=== PATIENT | male | born 1960 | race African-American/Black ===

== ENCOUNTER 2023-10-18 16:03 | Emergency (ER) | payer OTHER, SELFPAY ==
[2023-10-18 16:06] LABS: Glucose - Point of Care 113 mg/dl (70-99)
[2023-10-18 16:11] VITALS: BP 147/74
[2023-10-18 16:36] VITALS: BMI 32.9
[2023-10-18 16:49] VITALS: BP 156/77
[2023-10-18 17:00] VITALS: BP 160/84
[2023-10-18] MEDS: ZOFRAN 4 MG IV ×2 (17:43→21:28)
[2023-10-18] MEDS: NSS 1000 IV (17:44)
[2023-10-18 17:46] LABS: % Basophils 0.1 % (0-2); % Eosinophils 0.6 % (0-6); % Immature Granulocytes 0.4 % (0-0.5); % Lymphocytes 21.8 % (20.5-51.1); % Monocytes 9.7 % (1.7-9.3); % Neutrophils 67.4 % (42.2-75.2); Absolute Lymphocytes 1.5 10^3/uL (1.2-3.4); Absolute Monocytes 0.7 10^3/uL (0.1-0.6); Absolute Neutrophils 4.7 10^3/uL (1.4-6.5); Hematocrit 38.5 % (39.0-52.0); Hemoglobin 13.3 g/dL (13.0-18.0); Mean Corp Hgb Conc. 34.5 g/dL (33.0-37.0); Mean Corpuscular Hgb 27.1 pg (27.0-31.0); Mean Corpuscular Volume 78.4 fL (80.0-94.0); Mean Platelet Volume 9.1 fL (7.4-10.4); Nucleated Red Blood Cells % 0 % (-); Platelet Count 235 10^3/uL (130-400); Red Blood Cell Count 4.91 10^6/uL (4.70-6.10); Red Cell Dist. Width 13.8 % (11.5-14.5); White Blood Cell Count 6.9 10^3/uL (4.8-10.8)
--- NOTE | 2023-10-18 17:50 | ED.GENMED ---
History of Present Illness
General
Chief Complaint: Abdominal Symptoms
Source: patient
Time Seen by Provider: 10/18/23 16:51
History of Present Illness
History of Present Illness:
63-year-old male presents to the emergency room complaining of nausea and vomiting. Patient's been having the symptoms for the past couple days. States he cannot keep anything down. He has mild lower abdominal pain. No fever. Denies chest pain
or shortness of breath.
Past History
Past History
ED Past Medical History: HTN, Hypercholesterolemia and Other (Gout, STERLING, A-fib)
Social History
Tobacco: Smoker
Alcohol: Former
Drug: Former user
Living: other
Phy Exam
Physical Exam
Physical Exam:
General: Awake, Alert, Oriented X3. No acute distress.
Vitals: unremarkable
Head: Atraumatic
Eyes: Pupils equal, EOMI
Throat: Airway intact, no exudates, dry mucosa
Neck: Trachea midline
Lungs: Clear and equal b/l
Heart: Regular rate, no murmurs
Abd: Soft, no significant reproducible abdominal pain to palpation, no pulsatile mass
Neuro: Nonfocal
Skin: Warm, dry, no rash
Extremities: pulses equal b/l, no edema
Course
Orders/Labs/Results
Orders:
Orders
10/18/23 16:10
Electrocardiogram (*1) Urgent
Reason for Study: Abdominal Pain
EKG- Treatment ONCE
10/18/23 17:35
Electrocardiogram (*1) Stat
Reason for Study: Abdominal Pain
EKG- Treatment ONCE
0.9% Sodium Chloride 1000 ml [Nss] 1,000 ml IV BOLUS
Ondansetron Injectable [Zofran] 4 mg IV NOW STA
10/18/23 17:37
Interrogate Pacemaker- Treatment ONCE
Complete Blood Count/With Diff Urgent
Comprehensive Metabolic Panel Urgent
Lipase Urgent
Troponin I Urgent
10/18/23 19:15
CT Abd/pelvis W Iv Cont Urgent
Comment:
Reason For Exam: lower abd pain
10/18/23 19:31
Urinalysis Reflex To Culture Urgent
Date Specimen was Collected: 10/18/23
Time Specimen was Collected: 19:30
10/18/23 21:25
Ondansetron Injectable [Zofran] 4 mg IV NOW STA
10/18/23 21:26
Ondansetron Injectable [Zofran] 4 mg .ROUTE .STK-MED ONE
10/18/23 22:52
Ondansetron Orally Disint [Zofran Odt (Orally Disintegrating)] 4 mg PO NOW STA
Abnormal Lab Results
10/18/23 10/18/23
16:05 17:37
Hct 38.5 L %
(39.0-52.0)
MCV 78.4 L fL
(80.0-94.0)
Absolute Monos (auto) 0.7 H 10^3/uL
(0.1-0.6)
Monocytes % 9.7 H %
(1.7-9.3)
Chloride 109 H mmol/L
(98-107)
Creatinine 1.4 H mg/dL
(0.7-1.3)
POC Glucose 113 H mg/dl
(70-99)
10/18/23 17:37
10/18/23 17:37
Vital Signs
Initial and Last Documented VS:
Initial Vital Signs
Temp Pulse Resp Pulse Ox
98.2 F 72 16 98
10/18/23 16:05 10/18/23 16:05 10/18/23 16:05 10/18/23 16:05
Last Documented Vital Signs
Temp Pulse Resp BP Pulse Ox
98.2 F 72 16 149/71 99
10/18/23 21:05 10/18/23 22:30 10/18/23 22:30 10/18/23 22:30 10/18/23 22:30
MDM/Problems Addressed
Differential Diagnosis Includes:
Gastritis, pancreatitis diverticulitis
MDM/Problems Addressed:
Patient is nausea and vomiting. His abdominal exam is benign. Labs show a normal white blood cell count, normal hemoglobin. Creatinine is mildly elevated 1.4 but the remainder of his chemistries are reassuring. Urinalysis is negative. EKG
showed no ischemic changes. Troponin was normal. Patient has a [employer] ICD. This was interrogated. There were no recent events. Patient felt somewhat better after Zofran and IV fluid. Patient still feels mildly nauseous. Given his
workup is not positive for any significant abnormalities including CT scan which showed no acute intra-abdominal abnormalities the patient to be discharged home. Recommend clear liquids. Prescription for Zofran sent.
*Pulse Oximetry
Patient hypoxic: no
*EKG
Interpreted by ED Provider?: Yes
Heart Rate: 74
Rate: normal
Rhythm: sinus
Interval: first degree heart block
QRS Pattern: normal QRS
Ischemia: non-specific ST changes
*Deep Fat Fry Cook Interpretation
Rate: normal
Interpretation: normal
Rhythm: sinus
*Critical Care Note
Total Time (30-74mins, 75-104mins- exclusive of procedures): Not Applicable
Patient Management
Social determinants of health affecting care: Strong social support
ED Attending Note
-
Portions of this chart may have been created with voice recognition software.� Occasional wrong word or��sound alike� substitutions may have occurred due to the inherent limitations of voice recognition software.
Discharge Plan
Departure
Patient Disposition: Home (Routine Discharge)
Date of Disposition: 10/18/23
Time of Disposition: 22:52
Patient with high blood pressure during this ER visit?: No
Condition: Good
Discharge Problem:
Nausea & vomiting
Instructions: Nausea and Vomiting, Adult (DC)
Prescriptions:
New
ondansetron 4 mg tablet,disintegrating
4 mg PO Q8H 4 Days Qty: 12 0RF
No Action
losartan 50 mg Tablet
50 mg PO DAILY
atorvastatin [Lipitor] 80 mg Tablet
80 mg PO DAILY
clonidine HCl 0.1 mg Tablet
0.1 mg PO BIDPRN PRN (Reason: anxiety)
carvedilol [Coreg] 6.25 mg Tablet
6.25 mg PO BID
naltrexone 50 mg Tablet
50 mg PO DAILY
cyanocobalamin (vitamin B-12) 1,000 mcg Tablet
1,000 mcg PO DAILY
quetiapine [Seroquel] 100 mg Tablet
150 mg PO HSPRN PRN (Reason: agitation)
amlodipine [Norvasc] 10 mg Tablet
10 mg PO DAILY
metformin 1,000 mg Tablet
1,000 mg PO BID
buspirone [BuSpar] 10 mg Tablet
10 mg PO BID
albuterol sulfate [ProAir HFA] 90 mcg/actuation Hfa Aerosol Inhaler
2 puff INHALATION R Q6HPRN PRN (Reason: sob)
amiodarone 100 mg Tablet
100 mg PO DAILY
Xarelto 20 mg Tablet
20 mg PO HS
prazosin 5 mg Capsule
10 mg PO HS
Referrals:
UNKNOWN - PT DOES,NOT KNOW [Family Provider] -
Interventions
Interventions:
*Risk Screen - Suicide Last Done: 10/18/23 16:36
*General Assessment Last Done: 10/18/23 16:36
*Neglect/Abuse Screening Last Done: 10/18/23 16:36
ED- Fall Risk Assessment Last Done: 10/18/23 16:36
*ED COVID-19 Vaccine History Last Done: 10/18/23 16:05
*Nursing Disposition Last Done: 10/18/23 23:11
MV-Ctwycw-Dmmviyncin Assessment Last Done: 10/18/23 16:36
Discharge Date and Time
Discharge Date/Time: 10/18/23 23:11
Print Language: SERBIAN
[2023-10-18 18:00] VITALS: BP 160/84
--- NOTE | 2023-10-18 18:01 | PHANOTE ---
Addendum entered by Keri Alas 10/18/23 18:58:
[phone].
Original Note:
med rec note- patient does not know his medication, [facility] will [facility] to call them at [phone]. unfortunately they left for the day, but spoke to cable television installer maintenance mechanic telephone and she took my information and will call back Thursday10/19/23
at [phone].
[2023-10-18 18:11] LABS: Troponin I < 0.012 ng/ml
[2023-10-18 18:17] LABS: ALT (SGPT) 15 U/L (0-50); AST (SGOT) 33 U/L (17-59); Albumin 4.2 g/dl (3.5-5.0); Alkaline Phosphatase 96 U/L (38-126); Blood Urea Nitrogen 19 mg/dl (9-20); Calcium 9.3 mg/dl (8.4-10.2); Carbon Dioxide 22 mmol/L (22-30); Chloride 109 mmol/L (98-107); Estimated Creatinine Clearance 71 ml/min; Glucose 98 mg/dl (70-99); Lipase 76 U/L (23-300); Sodium 143 mmol/L (135-145); Total Bilirubin 0.5 mg/dl (0.2-1.3); Total Protein 7.5 g/dl (6.3-8.2); eGFR 56.48
[2023-10-18 19:37] LABS: Urine Albumin Trace (Neg - Trace); Urine Bilirubin Negative (Negative); Urine Character Clear (Clear); Urine Color Yellow; Urine Glucose Negative (Negative); Urine Ketone Negative (Negative); Urine Leukocyte Negative (Negative); Urine Nitrite Negative (Negative); Urine Occult Blood Negative (Negative); Urine Urobilinogen Negative (Neg - 1+)
[2023-10-18 21:05] VITALS: BP 146/77
[2023-10-18 22:30] VITALS: BP 149/71
== END 2023-10-18 23:11 | disposition home or self-care (01) ==
LOC: EMR 16:03
PROVIDERS: EMERGENCY PHYSICIAN Emergency Medicine
DX: R11.2 Nausea with vomiting, unspecified (principal); R10.30 Lower abdominal pain, unspecified; I10 Essential (primary) hypertension; E78.00 Pure hypercholesterolemia, unspecified; I48.91 Unspecified atrial fibrillation; F17.200 Nicotine dependence, unspecified, uncomplicated; Z95.810 Presence of automatic (implantable) cardiac defibrillator
CPT/HCPCS: 99284; 96374; 96376; 96361; 74177; 80053; 81003; 82962; 83690; 84484; 85025; 93005; Q9967

== ENCOUNTER 2024-03-19 05:16 | Emergency (ER) | payer OTHER, SELFPAY ==
[2024-03-19 05:16] VITALS: BMI 32.4
[2024-03-19 05:17] VITALS: BP 178/95
--- NOTE | 2024-03-19 05:31 | ED.GENMED ---
History of Present Illness
General
Chief Complaint: Nose Bleed
Source: patient
Exam Limitations: none
Time Seen by Provider: 03/19/24 05:22
History of Present Illness
History of Present Illness:
See MDM
Past History
Past History
ED Past Medical History: HTN, Hypercholesterolemia and Other (Gout, STERLING, A-fib)
Social History
Tobacco: Smoker
Alcohol: Former
Drug: Former user
Living: other
Phy Exam
Physical Exam
Physical Exam:
See MDM
Course
Orders/Labs/Results
Orders:
Orders
03/19/24 05:30
Lorazepam [Ativan] 0.5 mg PO NOW STA
Ondansetron Orally Disint [Zofran Odt (Orally Disintegrating)] 4 mg PO NOW STA
Vital Signs
Initial and Last Documented VS:
Initial Vital Signs
Temp Pulse Resp BP Pulse Ox
97.8 F 78 22 178/95 95
03/19/24 05:17 03/19/24 05:17 03/19/24 05:17 03/19/24 05:17 03/19/24 05:17
Last Documented Vital Signs
Temp Pulse Resp BP Pulse Ox
97.8 F 78 22 174/94 94
03/19/24 05:17 03/19/24 05:17 03/19/24 05:17 03/19/24 05:35 03/19/24 05:36
MDM/Problems Addressed
Differential Diagnosis Includes:
HPI and MDM Narrative:
63-year-old male presenting with right-sided nosebleeding. Patient states it has been on and off for the past few days. Patient is on Xarelto for A-fib. Patient states he could not stop the bleeding for the past hour or so he drove himself to the
hospital. On arrival, patient is extremely anxious and keeps dabbing his nose. When I assessed the nose, I did wipe away small clots in his right nasal passage. No active bleeding noted. Patient requesting medicine for anxiety. Patient also
stating he feels nauseous from swallowing blood.
Physical exam
General: Well appearing and non-toxic
HEENT: protecting airway. Small clots noted in right nasal passage. No active bleeding
Neck: appears supple
CV: No evidence of cyanosis
Resp: No accessory muscle use
Abd: Non-distended
Extremities: No deformities
Neuro: alert
Psych: Anxious
Skin: Intact
Problems Addressed including Acute and Chronic Conditions affecting care:
1. Right-sided nosebleeding
Acuity: acute
Prognosis: stable
Details: It appears to be anterior epistaxis. On my evaluation, it has self resolved. Will continue to monitor
Updates
5:45 AM on multiple reassessments, there is no active bleeding. Patient at this point asking for refill of his Seroquel. [facility] but I will write for a week supply until that happens
Differential Diagnosis (but not limited to):. Nosebleed, excoriation
Testing considered: Hemoglobin testing
Drug therapy (if applicable): OTC meds, please see d/c instruction regarding Rx drugs
Amount and/or Complexity of Data Reviewed
Clinical info obtained from: Patient
External data reviewed: N/A
Labs I independently reviewed (but not limited to): N/A
Radiology: N/A
Pulse Ox: not hypoxic
EKG independently reviewed: N/A
Certified Travel Counselor: N/A
Critical Care: N/A
Risk of Complication:
Social Determinants of health: Good social support
Discussed with other providers: N/A
Escalation of Care includes Admit/Obs: After being observed in the Emergency Department, pt stable for discharge.
Occasional wrong word or 'sound a like' substitutions may have occurred due to the inherent limitations of voice recognition software. Read the chart carefully and recognize, using context, where substitutions have occurred.
*Critical Care Note
Total Time (30-74mins, 75-104mins- exclusive of procedures): Not Applicable
ED Attending Note
-
Portions of this chart may have been created with voice recognition software.� Occasional wrong word or��sound alike� substitutions may have occurred due to the inherent limitations of voice recognition software.
Discharge Plan
Departure
Patient Disposition: Home (Routine Discharge)
Date of Disposition: 03/19/24
Time of Disposition: 05:48
Patient with high blood pressure during this ER visit?: Yes
Discharge Problem:
Acute anterior epistaxis
Instructions: Nosebleeds (DC), BLOOD PRESSURE
Prescriptions:
New
ondansetron 4 mg Tablet,Disintegrating
4 mg PO BIDPRN PRN (Reason: nausea/vomiting) Qty: 10 0RF
quetiapine [Seroquel] 100 mg tablet
150 mg PO HS 7 Days Qty: 11 0RF
No Action
losartan 50 mg Tablet
50 mg PO DAILY
atorvastatin [Lipitor] 80 mg Tablet
80 mg PO DAILY
clonidine HCl 0.1 mg Tablet
0.1 mg PO BIDPRN PRN (Reason: anxiety)
carvedilol [Coreg] 6.25 mg Tablet
6.25 mg PO BID
naltrexone 50 mg Tablet
50 mg PO DAILY
cyanocobalamin (vitamin B-12) 1,000 mcg Tablet
1,000 mcg PO DAILY
quetiapine [Seroquel] 100 mg Tablet
150 mg PO HSPRN PRN (Reason: agitation)
amlodipine [Norvasc] 10 mg Tablet
10 mg PO DAILY
metformin 1,000 mg Tablet
1,000 mg PO BID
buspirone [BuSpar] 10 mg Tablet
10 mg PO BID
albuterol sulfate [ProAir HFA] 90 mcg/actuation Hfa Aerosol Inhaler
2 puff INHALATION R Q6HPRN PRN (Reason: sob)
amiodarone 100 mg Tablet
100 mg PO DAILY
Xarelto 20 mg Tablet
20 mg PO HS
prazosin 5 mg Capsule
10 mg PO HS
ondansetron 4 mg tablet,disintegrating
4 mg PO Q8H 4 Days Qty: 12 0RF
Activity Restrictions/Additional Instructions:
Please return for any worsening symptoms.
You may return at any time if you have further concerns.
Please follow up with your doctor at the first available appointment, preferably this week.
Thank you for choosing [facility].
Interventions
Interventions:
*Risk Screen - Suicide Last Done: 03/19/24 05:17
*General Assessment Last Done: 03/19/24 05:36
*Neglect/Abuse Screening Last Done: 03/19/24 05:36
*ED COVID-19 Vaccine History Last Done: 03/19/24 05:36
ED-EENT Assessment Last Done: 03/19/24 05:38
Discharge Date and Time
Print Language: MALTESE
[2024-03-19] MEDS: ATIVAN 0.5 MG PO (05:34)
[2024-03-19] MEDS: ZOFRAN ODT (ORALLY DISINTEGRATING) 4 MG PO (05:34)
[2024-03-19 05:35] VITALS: BP 174/94
[2024-03-19 06:00] VITALS: BP 157/96
== END 2024-03-19 06:08 | disposition home or self-care (01) ==
LOC: EMR 05:16
PROVIDERS: EMERGENCY PHYSICIAN Student in an Organized Health Care Education/Training Program
DX: R04.0 Epistaxis (principal); I10 Essential (primary) hypertension; F41.9 Anxiety disorder, unspecified; F17.200 Nicotine dependence, unspecified, uncomplicated; I48.91 Unspecified atrial fibrillation; Z79.01 Long term (current) use of anticoagulants
CPT/HCPCS: 99283

== ENCOUNTER 2024-05-10 06:17 | Inpatient (IN) | payer OTHER, SELFPAY ==
[2024-05-09 23:49] VITALS: BP 158/86
[2024-05-10] VITALS (14 sets, daily range): BP systolic 118–144; BP diastolic 69–94; BMI 32.3; BMI 31.2
[2024-05-10] MEDS: ZOFRAN 4 MG IV (00:18)
[2024-05-10] MEDS: PROTONIX IV 40 MG IV (00:18)
[2024-05-10 00:42] LABS: ALT (SGPT) 14 U/L (0-50); AST (SGOT) 19 U/L (17-59); Albumin 4.1 g/dl (3.5-5.0); Alkaline Phosphatase 96 U/L (38-126); Blood Urea Nitrogen 18 mg/dl (9-20); Calcium 9.2 mg/dl (8.4-10.2); Carbon Dioxide 19 mmol/L (22-30); Chloride 109 mmol/L (98-107); Estimated Creatinine Clearance 62 ml/min; Glucose 137 mg/dl (70-99); Potassium 3.9 mmol/L (3.5-5.1); Sodium 141 mmol/L (135-145); Total Bilirubin 0.5 mg/dl (0.2-1.3); eGFR 48.11
[2024-05-10 00:45] LABS: % Basophils 0.6 % (0-2); % Eosinophils 0.9 % (0-6); % Immature Granulocytes 1.3 % (0-0.5); % Lymphocytes 19.3 % (20.5-51.1); % Monocytes 8.3 % (1.7-9.3); % Neutrophils 69.6 % (42.2-75.2); Absolute Eosinophils 0.1 10^3/uL (0-0.7); Absolute Immature Granulocytes 0.1 10^3/uL (0-0.05); Absolute Lymphocytes 1.3 10^3/uL (1.2-3.4); Absolute Monocytes 0.6 10^3/uL (0.1-0.6); Absolute Neutrophils 4.8 10^3/uL (1.4-6.5); Hemoglobin 11.5 g/dL (13.0-18.0); Mean Corp Hgb Conc. 32.9 g/dL (33.0-37.0); Mean Corpuscular Hgb 26.3 pg (27.0-31.0); Mean Corpuscular Volume 79.9 fL (80.0-94.0); Mean Platelet Volume 9.7 fL (7.4-10.4); Nucleated Red Blood Cells % 0 % (-); Platelet Count 311 10^3/uL (130-400); Red Blood Cell Count 4.38 10^6/uL (4.70-6.10); Red Cell Dist. Width 16.1 % (11.5-14.5); White Blood Cell Count 6.9 10^3/uL (4.8-10.8)
[2024-05-10 00:47] LABS: Lipase 30 U/L (23-300)
[2024-05-10 00:55] LABS: NT-proBNP 2940 pg/ml; Troponin I 0.023 ng/ml
--- NOTE | 2024-05-10 02:26 | ED.GENMED ---
History of Present Illness
General
Chief Complaint: Cardiac Symptoms
Source: patient
Exam Limitations: none
Time Seen by Provider: 05/10/24 00:13
Nursing documentation reviewed up to this point in time: agreed with
History of Present Illness
History of Present Illness:
This is a 63-year-old gentleman who has history of A-fib, CHF, AICD, GERD, anxiety. He states he was hospitalized last month for exacerbation of CHF while visiting in [place]. He states he required IV diuretics. He flew home perhaps 2
weeks ago and was feeling well until this evening when he developed similar symptoms as previous CHF exacerbation with shortness of breath, chest pain, burping, nausea and vomiting. He denies cough, denies fever nor chills, no leg pain or swelling.
He follows with camp head counselor at the [place].
He has not been weighing himself daily.
He is unsure as to his dose of Lasix but believes he takes 40 mg daily.
Past History
Past History
ED Past Medical History: Arrthythmia (Atrial fibrillation), CHF, HTN, Hypercholesterolemia, Renal failure (Chronic renal insufficiency.), Psychiatric (Anxiety) and Other (Gout, STERLING, A-fib)
ED Past Surgical History: Cardiac (AICD)
Social History
Tobacco: Smoker
Alcohol: Former
Drug: Former user
Personal: Single
Living: alone
Employment: Not employed
Family History
Family History: Other (Noncontributory)
Phy Exam
Physical Exam
Physical Exam:
GENERAL: 63-year-old gentleman appears somewhat older than stated age, awake and alert, in mild to moderate distress, moderately anxious, intermittently burping, tachypneic but able to speak in full sentences. Pulse ox 98% on room air.
EYE: pupils equal and reactive. anicteric
NECK: Supple, nontender, no meningismus, no significant adenopathy. Mild JVD.
ENT: oral mucosa is moist. No rhinorrhea.
CARDIAC: Regular rate and rhythm. 2/6 holosystolic murmur.
LUNGS: Mild to moderate respiratory distress, scant rales at bases otherwise clear to auscultation.
ABDOMEN: Rotund, soft, nondistended, without focal tenderness, normoactive BS.
NEUROLOGICAL: Alert and oriented x3, no focal neuro deficits.
SKIN: Warm and dry, normal color, skin intact. No rash.
MUSCULOSKELETAL: No C/C/E. peripheral pulses are full and equal b/l. No palpable tenderness.
PSYCH: Moderately anxious.
Scores
Heart Failure Risk
Heart Failure Risk Score: Yes
History of Stroke or TIA: No
History of intubation for respiratory distress: No
Heart rate on ED arrival >/= 110: No
SaO2 <90% on arrival on room air: No
HR >/=110 during 3min walk test (or too ill to perform test): Yes
ECG has acute ischemic changes: No
Urea >/=12mmol/L (BUN 33.6mg/dL): No
Serum CO2>/=35mmol/L: No
Troponin I or T elevated to NM Level (0.4mg/dL): No
NT-proBNP >/=5,000ng/L (5,000pg/ml): No
HF Risk Score: 2
Admission Status: MEDIUM RISK 9.2% Consider observation or discharge to home with homecare & f/u visit to PCP/Videotape Operator, or SNF for treatment
Course
Orders/Labs/Results
Orders:
Orders
05/09/24 23:41
Electrocardiogram (*1) Urgent
Reason for Study: Shortness of Breath
EKG- Treatment ONCE
Complete Blood Count/With Diff Urgent
Comprehensive Metabolic Panel Urgent
Pro-BNP [NT-proBNP] Urgent
Troponin I Urgent
05/10/24 00:00
CR Chest - 2 Views Urgent
Reason For Exam: SOB
05/10/24 00:13
Lipase Urgent
Comment: .
05/10/24 00:14
Ondansetron Injectable [Zofran] 4 mg IV NOW STA
Pantoprazole [Protonix IV] 40 mg IV NOW STA
05/10/24 02:06
Furosemide [Lasix] 40 mg IV NOW STA
Nitroglycerin Ointment [Nitro-Bid] 1 inch TOPICAL NOW STA
05/10/24 04:35
Furosemide [Lasix] 40 mg .ROUTE .STK-MED ONE
05/10/24 04:36
Nitroglycerin Ointment [Nitro-Bid] 1 inch .ROUTE .STK-MED ONE
05/10/24 04:58
Troponin I Urgent
05/10/24 05:18
Admit/Transfer Patient As Directed
Co-Sign Provider:
Level of Care: Inpatient admission
Assign to:: Telemetry
Physician / Group: Servando
Diagnosis: CHF
Reason for Telemetry: Acute Heart Failure
Date to Stop Telemetry: 05/13/24
Time to Stop Telemetry: 11:00
Reason for Hospitalization: CHF
Expected length of stay greater than two midnights?: Yes
ELOS- Estimated Length of Stay in days: 3
I certify the patient meets the requirements for IP care: Yes
05/10/24 05:19
COVID-19 Antigen Urgent
Source: Nasal Swab
Influenza A+B Rapid Molecular Urgent
JANAE Source: Nasal Swab
Specimen Description:
PRN Pain Medication Management As Directed
May give lesser potent ordered pain med per pt: Yes
preference::
Protocol:: Medication orders for pain may be administered in a
manner that supports deferring to patient preference
when the pt is:
- Requesting an ordered lesser potent pain medication.
Least to most potent pain medications are defined
as: acetaminophen < NSAID < tramadol < opioids
(morphine, oxycodone, hydromorphone).
- Requesting a lesser dose of the same medication IF
ORDERED.
- Requesting a less intrusive route of administration
if both routes are prescribed by the provider (PO <
IV).
05/10/24 05:20
Code Status As Directed
Resuscitation Status: Full Code
05/10/24 Breakfast
Regular
Fluid Restriction: 1440 mL/day (48 oz)
05/13/24 11:00
DC Protocol for Telemetry ONCE
Abnormal Lab Results
05/10/24
00:13
RBC 4.38 L 10^6/uL
(4.70-6.10)
Hgb 11.5 L g/dL
(13.0-18.0)
Hct 35.0 L %
(39.0-52.0)
MCV 79.9 L fL
(80.0-94.0)
MCH 26.3 L pg
(27.0-31.0)
MCHC 32.9 L g/dL
(33.0-37.0)
RDW 16.1 H %
(11.5-14.5)
Abs Immat Gran (auto) 0.1 H 10^3/uL
(0-0.05)
Immature Gran % 1.3 H %
(0-0.5)
Lymphocytes % 19.3 L %
(20.5-51.1)
Chloride 109 H mmol/L
(98-107)
Carbon Dioxide 19 L mmol/L
(22-30)
Creatinine 1.6 H mg/dL
(0.7-1.3)
Glucose 137 H mg/dl
(70-99)
05/10/24 00:13
05/10/24 00:13
Vital Signs
Initial and Last Documented VS:
Initial Vital Signs
Temp Pulse Resp BP Pulse Ox
98 F 80 32 158/86 98
05/09/24 23:49 05/09/24 23:49 05/09/24 23:49 05/09/24 23:49 05/09/24 23:49
Last Documented Vital Signs
Temp Pulse Resp BP Pulse Ox
98 F 72 20 132/93 97
05/09/24 23:49 05/10/24 06:21 05/10/24 06:21 05/10/24 06:21 05/10/24 06:21
MDM/Problems Addressed
Differential Diagnosis Includes:
Concern for exacerbation of CHF, ACS, GERD, gastroenteritis, pneumonia.
Moderate underlying anxiety component and with reassurance, calming factors, patient's dyspnea markedly improves.
EKG shows A-fib with ventricular paced rhythm. A-fib and ventricular pacing is new compared to previous EKG showing sinus rhythm with first-degree AV block September 2023.
Will check labs, troponin, BNP, chest x-ray. With history of cardiomyopathy, A-fib, AICD patient is certainly at risk for recurrent CHF.
With recent travel, other consideration is PE however patient is not tachycardic, no leg pain or swelling and denies lengthy car rides, he traveled by air. Brief air travel.
Also reassuring that he is chronically maintained on Xarelto. Reports compliance with medications.
Chronic conditions affecting care: HTN, CAD, Cardiomyopathy, Psychiatric illness and Kidney disease
Acute Exacerbation and/or Progression of Chronic Illness: Cardiomyopathy
*Radiology
Radiology exam reviewed: preliminary read by ED provider (Chest x-ray shows cardiomegaly, mild interstitial fullness concerning for CHF.)
*Pulse Oximetry
Patient hypoxic: no
*EKG
Interpreted by ED Provider?: Yes
Interpretation: abnormal
Comparison EKG: changes noted (A-fib with ventricular pacing is new compared to previous EKG September 2023 showing normal sinus rhythm with first-degree AV block)
Rate: normal
Rhythm: a-fib and ventricular paced
Ischemia: non-specific ST changes
*Sterile Processing Tech Interpretation
Rate: normal
Interpretation: normal
Rhythm: a-fib and ventricular paced
*Critical Care Note
Total Time (30-74mins, 75-104mins- exclusive of procedures): Not Applicable
Update Note
Update Note:
02:34
Chest x-ray concerning for at least mild CHF.
BNP is elevated near 3000.
Troponin thus far is normal. Will plan to repeat.
Mild anemia with hemoglobin of 11.5, normal white blood cell count.
Patient continues with intermittent burping but has had no vomiting.
Continues with some dyspnea and with chest x-ray findings, elevated BNP, concern for acute on chronic CHF. Will give an IV dose of Lasix and plan to admit to hospitalist service.
ED Attending Note
-
Portions of this chart may have been created with voice recognition software.� Occasional wrong word or��sound alike� substitutions may have occurred due to the inherent limitations of voice recognition software.
Discharge Plan
Departure
Patient Disposition: Admit
Date of Disposition: 05/10/24
Time of Disposition: 02:37
Admit to: Telemetry
Admit to doctor: Servando
Presentation/result/management discussed w/ accepting MD/DO: Hospitalist
Discharge Problem:
Acute on chronic combined systolic (congestive) and diastolic (congestive) heart failure
Interventions
Interventions:
*Risk Screen - Suicide Last Done: 05/10/24 00:57
*General Assessment Last Done: 05/10/24 00:27
*Neglect/Abuse Screening Last Done: 05/09/24 23:42
ED- Fall Risk Assessment Last Done: 05/10/24 00:27
*ED COVID-19 Vaccine History Last Done: 05/10/24 00:27
ED- Pulmonary Assessment Last Done: 05/10/24 00:27
ED- Cardiac Assessment Last Done: 05/10/24 00:27
[2024-05-10] MEDS: LASIX 40 MG IV ×2 (04:38→16:50)
[2024-05-10] MEDS: NITRO-BID 1 INCH TOPICAL (04:39)
--- NOTE | 2024-05-10 05:23 | HPS.HSE ---
Family Physician
-
Family Physician: * NONE
Chief Complaint
-
SOB
History of Present Illness
Patient is a 63y M with PMH significant for CHF, PTSD / Depression, A-Fib and BPH who presents to ED complaining of SOB. Patient reports progressive SOB over the past 4-5 days. He reports cough and feeling 'hot and cold' off-and-on. He
complains of chest pain / pressure and frequent belching. Patient states that he had identical symptoms about 2 weeks ago while visiting family in [place]. He was hospitalized at [facility] in [place], [place] from 04/23 - 05/02 and treated
for CHF. He states that his symptoms improved. He was discharged on Lasix 20mg daily and Jardiance - both of which were new for him. He notes that he has not been monitoring his weight.
He has prior history of cardiomyopathy with PPM / AICD in place. He states that he was not on chronic diuretic therapy prior to his recent hospitalization.
He is followed locally by Cardiology at the [facility].
Medical History
Past Medical History
Past Medical History: Reports Other
Additional Past Medical History:
Cardiomyopathy - Unknown Type
Chronic HF - Unknown Type
Atrial Fibrillation - Unknown Type
Hypertension
CKD III
Anxiety / Depression / PTSD
BPH
Past Surgical History: Reports Other
Additional Past Surgical History:
PPM / AICD Placement
Bilateral TKA
Social History
Tobacco: Smoker (Current every day smoker. Approx 40 pack years total use.)
Alcohol: None
Drug: None
Family History
Family History: Not pertinent
Allergies / Home Medications
Allergies reflects when Allergies were last updated in [employer].
Home Medications with original date entered in [employer]
Allergy/Medication List:
Allergies
Allergy/AdvReac Type Severity Reaction Status Date / Time
No Known Drug Allergies Allergy Unknown Unknown Verified 05/09/24 23:43
Home Medications
albuterol sulfate 90 mcg/actuation aerosol inhaler (ProAir HFA) 2 puff inhalation R Q6HPRN PRN sob 10/18/23
amiodarone 100 mg tablet 200 mg PO DAILY 10/18/23
atorvastatin 80 mg tablet (Lipitor) 80 mg PO DAILY 10/18/23
buspirone 10 mg tablet 10 mg PO BID 10/18/23
carvedilol 6.25 mg tablet (Coreg) 6.25 mg PO BID 10/18/23
clonidine HCl 0.1 mg tablet 0.1 mg PO BIDPRN PRN anxiety 10/18/23
cyanocobalamin (vitamin B-12) 1,000 mcg tablet 1,000 mcg PO DAILY 10/18/23
naltrexone 50 mg tablet 50 mg PO DAILY 10/18/23
prazosin 5 mg capsule 10 mg PO HS 10/18/23
quetiapine 100 mg tablet (Seroquel) 100 mg PO HSPRN PRN agitation 10/18/23
rivaroxaban 20 mg tablet (Xarelto) 20 mg PO HS 10/18/23
ondansetron 4 mg disintegrating tablet 4 mg PO BIDPRN PRN nausea/vomiting #10 tabs 03/19/24
empagliflozin 10 mg PO DAILY 05/10/24
furosemide 20 mg PO DAILY 05/10/24
quetiapine 100 mg tablet (Seroquel) 100 mg PO HS 05/10/24
tamsulosin 0.4 mg capsule 0.4 mg PO DAILY 05/10/24
Review of Systems
-
History Source: Patient
A 12 point ROS was completed and negative except as noted: Yes
Constitutional: Reports Fatigue and Chills; Denies Fever
EENT: Denies Sore Throat
Respiratory: Reports Cough and Trouble Breathing; Denies Hemoptysis
Cardiac: Reports Chest Pain and Palpitations; Denies Diaphoresis or Syncope
Abdomen/GI: Reports Nausea and Anorexia; Denies Abdominal Pain, Vomiting or Diarrhea
: Denies Dysuria, Frequency or Flank Pain
Musculoskeletal: Denies Joint Pain or Edema
Neurological: Denies Dizzy or Headache
Psych: Reports Depression and Anxiety
Physical Exam
Vital Signs
Vital Signs
Temp Pulse Resp BP Pulse Ox
98 F 75 22 133/92 95
05/09/24 23:49 05/10/24 04:45 05/10/24 04:45 05/10/24 04:39 05/10/24 04:45
Physical Exam
General: Other (63y M in no acute distress.)
HEENT: Moist mucous membranes, PERRLA and Other (Pos JVD about 1/2 up neck.)
Respiratory: Other (Few bibasilar rales. No wheezing / rhonchi.)
Cardiac: S1/S2, Irregular Rhythm and Murmur (II/ BOSTON)
GI: Soft, Non Tender, Non Distended and Normal Bowel Sounds
Musculoskeletal: No Clubbing, No Cyanosis and No Edema
Neuro: AO x 3
Laboratory Results
-
05/10/24 00:13
05/10/24 00:13
Laboratory Results
Total Bilirubin 0.5 mg/dl (0.2-1.3) 05/10/24 00:13
AST 19 U/L (17-59) 05/10/24 00:13
ALT 14 U/L (0-50) 05/10/24 00:13
Alkaline Phosphatase 96 U/L (38-126) 05/10/24 00:13
Troponin I 0.023 ng/ml 05/10/24 00:13
Lipase 30 U/L (23-300) 05/10/24 00:13
Impression/Plan
-
A/P: Patient is a 63y M with PMH significant for CHF, A-Fib and hypertension who presents to ED complaining of progressive dyspnea x several days.
Acute on Chronic HF- Unknown Type
- Admit for further evaluation and treatment.
- Similar symptoms 2 weeks ago in [place] and improved with diuresis.
- Resume IV Lasix daily for now and follow for effect.
- Update Echo.
- Send to [facility] for records.
- Cardiology evaluation for additional recommendations.
- Continue Jardiance, carvedilol, etc.
- Check COVID / Flu for completeness given cough and chills - especially with recent hospital stay.
Atrial Fibrillation - Unknown Type
- Stable. PPM / AICD in place.
- EKG with baseline A-Fib and frequent periods of V pacing.
- Continue current medications including amiodarone and Xarelto.
- Cardiology eval as noted above.
CKD III
- Stable. Renal function is at / near known baseline.
- Follow for changes with diuresis.
Benign Hypertension
- Stable. Continue outpatient med regimen.
- Holding parameters if necessary to allow for effective diuresis.
BPH
- Stable. Continue tamsulosin.
- Bladder scan protocol.
PTSD / Anxiety / Depression
- Stable. Continue current psychotropic med regimen without changes.
- Monitor for any changes in mood, etc.
DVT Prophylaxis: On Xarelto
Code Status: Full
[2024-05-10 05:50] LABS: Troponin I 0.027 ng/ml
--- NOTE | 2024-05-10 07:43 | PHANOTE ---
Addendum entered by Keri Alas 05/10/24 08:04:
called [facility], the med listed below were filled in 04/09/24 expect for the naltrexone 50mg daily patient stopped filling
Original Note:
med rec note- patient medication on have not been filled since 09/2023 BuSpar 10mg bid, Lipitor 80mg daily, Xarelto 20mg qpm, losartan 50mg daily, clonidine 0.1gm bid, metformin 1000mg bid, Coreg 12.5mg bid and Norvasc 10mg daily and 05/25/2023
for naltrexone 50mg daily
[2024-05-10 08:06] LABS: COVID-19 Antigen Negative (Negative)
--- NOTE | 2024-05-10 08:28 | W.PN.UPDATE ---
Update Note
Progress Note Update
Patient seen and examined today while in the ED. Continue current plan as outlined earlier this morning.
[2024-05-10] MEDS: FARXIGA 10 MG PO (08:42)
[2024-05-10] MEDS: REVIA 50 MG PO (08:42)
[2024-05-10] MEDS: PACERONE 200 MG PO (08:42)
[2024-05-10] MEDS: BUSPAR 10 MG PO ×2 (08:42→20:26)
[2024-05-10] MEDS: COREG 6.25 MG PO ×2 (08:42→20:26)
[2024-05-10] MEDS: LIPITOR 80 MG PO (08:42)
[2024-05-10 13:52] LABS: Troponin I 0.025 ng/ml
[2024-05-10 13:54] LABS: Glycohemoglobin (HgbA1c) 6.5 % (4.0-5.6)
[2024-05-10 14:12] LABS: TSH Reflex To Free T4 1.65 uIU/ml (0.47-4.68)
--- NOTE | 2024-05-10 14:41 | CON.CAR ---
Addendum entered and electronically signed by Dru Owens MD 05/10/24 17:32:
I saw and examined the patient.
The COMPUTERIZED MACHINE FABRIC CUTTER's note was reviewed and I agree with the note.
Comment:
Ketan Juárez is a 63-year-old male (follows at the [facility]), with heart failure (type unknown), atrial fibrillation (type unknown, on rivaroxaban), CKD, NIDDM, hypertension, dyslipidemia, current smoker, and depression who presented to the emergency
department with a chief complaint of shortness of breath. He was recently hospitalized in [place] on 04/27 and was there for 'a few days'. They diuresed him and he felt improved. He was discharged at a weight of 230 pounds and on Lasix 20 mg
daily and Jardiance. He felt improved but then started to feel worse again over the past couple of days and presented to ER. Today his weight is 236 pounds. Labs are notable for negative troponin, BNP 2940, creatinine 1.6 (at baseline). ECG
reveals atrial fibrillation with ventricular pacemaker. CXR appears fairly clear. Echo shows LVEF 30-35% with global hypokinesis, stage III DD, moderate MR, moderate to severe TR with PASP 58 mmHg. Suspect he has acute on chronic heart failure
with reduced ejection fraction. We will diurese him with 40 mg IV Lasix twice daily. Aim for goal dry weight 230 pounds. In terms of GDMT, he is on carvedilol, losartan, and empagliflozin. Losartan is currently being held but can be resumed if
creatinine is stable with diuresis. Consider adding on MRA. We will also request records from his primary quantity surveyor at the [facility] to see what kind of workup has been done for his heart failure. For atrial fibrillation he is on
rivaroxaban and is rate controlled with beta-lady. He is on amiodarone 200 mg daily which may be for atrial fibrillation but again we will request records from his primary quantity surveyor. Continue for now. Continue atorvastatin 80 mg daily.
Original Note:
Consultation
Consultation Request
Date/Time Consultation Requested: 05/10/2024 12:50
Date/Time Consultation Performed: 05/10/2024 15:00
Requesting Provider: Dr. Al
Performing Provider: SOLO Suarez for Dr. Owens
Reason for Consultation: Acute on chronic heart failure
Medical History
-
Chief Complaint: Shortness of breath
History of Present Illness:
Ketan Juárez is a 63-year-old male (follows at the [facility]), with heart failure (type unknown), atrial fibrillation (type unknown, on rivaroxaban), CKD, NIDDM, hypertension, dyslipidemia, current smoker, and depression who presented to the emergency
department with a chief complaint of shortness of breath. This has been ongoing for 2 to 3 days prior to arrival. He endorsed an associated cough. He denies chest pain and dizziness. The symptoms were reminiscent to 2 weeks ago when he was
admitted to [facility] ([place], [place]) where he was treated for acute heart failure. He was discharged home on 2 new medications, Jardiance and furosemide. He has not been monitoring his daily weight at home. He has
not been strict with low-sodium diet.
Past Medical History
Past Medical History: Arrhythmias (Atrial fibrillation), CHF, HTN, Hypercholesterolemia, NIDDM and Renal Failure
Past Surgical History: Orthopedic
Social History
Tobacco: Smoker
Alcohol: None
Drug: None and Former User (Crack/cocaine, last used 2013)
Family History
Family History: Reviewed & Not Pertinent
Allergies / Home Medications
Allergy/AdvReac Type Severity Reaction Status Date / Time
No Known Drug Allergies Allergy Unknown Unknown Verified 05/09/24 23:43
�Medication �Instructions �Recorded �Confirmed �Type
amiodarone 100 mg tablet 100 mg PO DAILY 10/18/23 05/10/24 History
atorvastatin 80 mg tablet (Lipitor) 80 mg PO QPM 10/18/23 05/10/24 History
buspirone 10 mg tablet 10 mg PO BID 10/18/23 05/10/24 History
carvedilol 6.25 mg tablet (Coreg) 6.25 mg PO BID 10/18/23 05/10/24 History
clonidine HCl 0.1 mg tablet 0.1 mg PO BIDPRN PRN anxiety 10/18/23 05/10/24 History
cyanocobalamin (vitamin B-12) 1,000 mcg PO DAILY 10/18/23 05/10/24 History
1,000 mcg tablet
prazosin 5 mg capsule 10 mg PO HSPRN PRN night vázquez 10/18/23 05/10/24 History
rivaroxaban 20 mg tablet (Xarelto) 20 mg PO HS 10/18/23 05/10/24 History
amlodipine 10 mg tablet (Norvasc) 10 mg PO DAILY 05/10/24 05/10/24 History
empagliflozin 10 mg tablet 10 mg PO DAILY 05/10/24 05/10/24 History
(Jardiance)
furosemide 20 mg tablet (Lasix) 20 mg PO DAILY 05/10/24 05/10/24 History
losartan 50 mg tablet 50 mg PO DAILY 05/10/24 05/10/24 History
metformin 1,000 mg tablet 1,000 mg PO BID 05/10/24 05/10/24 History
quetiapine 100 mg tablet (Seroquel) 150 mg PO HS 05/10/24 05/10/24 History
tamsulosin 0.4 mg capsule 0.4 mg PO DAILY 05/10/24 05/10/24 History
Review of Systems
-
History Source: Patient
All other systems: Negative unless noted
Constitutional: Fatigue
EENT: No Symptoms
Respiratory: Cough and Trouble Breathing
Cardiac: No Symptoms
Abdomen/GI: No Symptoms
: No Symptoms
Musculoskeletal: No Symptoms
Skin: No Symptoms
Neurological: No Symptoms
Endocrine: No Symptoms
Hematologic/Lymphatic: No Symptoms
Physical Exam
Vital Signs
Temp Pulse Resp BP Pulse Ox
98.3 F 70 20 138/84 96
05/10/24 12:51 05/10/24 12:51 05/10/24 12:51 05/10/24 12:51 05/10/24 13:22
Lab Results
05/10/24 00:13
05/10/24 00:13
Troponin I 0.025 ng/ml 05/10/24 13:10
Fkr-I-Ogvxupzausb Pept 2940 pg/ml 05/10/24 00:13
Physical Exam
General: Well Developed, Well Nourished, No Apparent Distress and Comfortable
HEENT: Normocephalic, Anicteric and Moist Mucous Membranes
Respiratory: Clear and Non Labored Respirations
Cardiac: S1/S2, Regular Rhythm and Murmur (II/ B[place]ON)
Breast: Deferred by me
GI: Soft, Non Tender, Non Distended and Normal Bowel Sounds
Rectal: Deferred by Provider
Genito-urinary: No Costovertebral Tender
Musculoskeletal: No Clubbing and No Cyanosis
Skin: Warm and Dry
Neuro: AO x 3
Hematologic/Lymphatic: No Lymphadenopathy
Psych: Calm
Impression / Plan
-
IMPRESSION/PLAN: 60M with heart failure (type unknown), atrial fibrillation (type unknown, on rivaroxaban), CKD, hypertension, dyslipidemia, current smoker, and depression who presented to the emergency department with a chief complaint of shortness
of breath.
Primary quantity surveyor: [place], specific physician unknown
Heart failure, type unknown, presumed HFpEF - acute on chronic
-Diuresis with furosemide 40 mg IV twice daily, this requires intensive monitoring
-GDMT as tolerated, he was started on Jardiance during his last hospitalization
-He is at his lowest documented weight at this facility, dry weight to be determined
-Update echocardiogram
-Monitor daily weight, I/O, and BMP with diuresis
-Heart failure education
Atrial fibrillation, type unknown
-Currently rate controlled, he was in sinus on EKG in September
-He is on amiodarone, unclear if this is for atrial fibrillation or another arrhythmia - continue
-Oral Anticoagulation: Xarelto 20 mg every evening, appropriate dosing as CrCl >50
-[id number]: Score at least 3 (Heart failure, DM, HTN)
CKD stage III
-Near prior baseline
-Follow with diuresis
Hypertension, stable, follow with diuresis
NIDDM, per primary
AICD, appears to be NeurOp on CXR
Current tobacco abuse, cessation recommended, he adamantly refuses
Prior EtOH with crack/cocaine use, current sobriety
PTSD, anxiety, depression
[2024-05-10] MEDS: SEROQUEL 100 MG PO ×2 (16:49→21:32)
[2024-05-10] MEDS: FLOMAX 0.4 MG PO (16:49)
[2024-05-10 18:49] LABS: Troponin I 0.021 ng/ml
[2024-05-10] MEDS: MINIPRESS 10 MG PO (21:32)
[2024-05-10] MEDS: XARELTO 20 MG PO (21:32)
[2024-05-11] VITALS (7 sets, daily range): BP systolic 125–148; BP diastolic 75–89; BMI 31.0
[2024-05-11 01:51] LABS: Troponin I 0.022 ng/ml
[2024-05-11 07:35] LABS: Hematocrit 35.5 % (39.0-52.0); Hemoglobin 11.2 g/dL (13.0-18.0); Mean Corp Hgb Conc. 31.5 g/dL (33.0-37.0); Mean Corpuscular Hgb 25.6 pg (27.0-31.0); Mean Corpuscular Volume 81.1 fL (80.0-94.0); Mean Platelet Volume 9.3 fL (7.4-10.4); Platelet Count 268 10^3/uL (130-400); Red Blood Cell Count 4.38 10^6/uL (4.70-6.10); Red Cell Dist. Width 16.4 % (11.5-14.5); White Blood Cell Count 5.4 10^3/uL (4.8-10.8)
[2024-05-11 08:04] LABS: Blood Urea Nitrogen 25 mg/dl (9-20); Calcium 8.8 mg/dl (8.4-10.2); Carbon Dioxide 25 mmol/L (22-30); Chloride 105 mmol/L (98-107); Estimated Creatinine Clearance 54 ml/min; Glucose 146 mg/dl (70-99); HDL Cholesterol 38 mg/dl; LDL Cholesterol, Calculated 45 mg/dl; Potassium 3.9 mmol/L (3.5-5.1); Sodium 140 mmol/L (135-145); Total Cholesterol 103 mg/dl (50-199); Triglyceride 102 mg/dl (10-149); Very Low Density Lipoprotein 20 mg/dl (0-30); eGFR 41.77
[2024-05-11] MEDS: PACERONE 200 MG PO (09:40)
[2024-05-11] MEDS: FLOMAX 0.4 MG PO (09:40)
[2024-05-11] MEDS: COREG 6.25 MG PO ×2 (09:40→21:01)
[2024-05-11] MEDS: FARXIGA 10 MG PO (09:40)
[2024-05-11] MEDS: REVIA 50 MG PO (09:41)
[2024-05-11] MEDS: BUSPAR 10 MG PO ×2 (09:41→21:01)
[2024-05-11] MEDS: LASIX 40 MG IV ×2 (09:41→15:46)
[2024-05-11] MEDS: LIPITOR 80 MG PO (09:42)
--- NOTE | 2024-05-11 09:47 | W.PN.HOSP.TC ---
Today's Communication/Plan
-
IV diuresis.
Assessment / Plan
Assessment / Plan
Physical exam:
General: Acute on chronically ill
HEENT: Normocephalic, Atraumatic and Moist Mucous Membranes
Respiratory: Clear to Auscultation; Negative Wheezes, Rales or Rhonchi
Cardiac: Regular Rhythm and S1/S2
GI: Soft, Nontender and Nondistended
Musculoskeletal: No Clubbing, No Cyanosis. Bilateral lower extremity edema
Neuro: Awake, Alert and Oriented, no neurological deficits.
Psych: Calm, cognitive deficits present.
A/P:
Acute on chronic systolic congestive heart failure:
On IV Lasix 40 mg twice a day
GDMT meds including beta-blockers, ARB holding for STERLING, SGT L2 inhibitors. Deferring MRA to outpatient cardiology.
Updated echocardiogram here shows EF 30 to 35% and stage III diastolic dysfunction, moderate mitral regurgitation, moderate to severe tricuspid regurgitation with moderate pulmonary hypertension
AICD in place-Plan for device interrogation
Discussed with cardiology today
PT OT eval
Atrial fibrillation, likely paroxysmal:
Continue rate control with beta-blockers
Continue antiarrhythmics with amiodarone
Continue anticoagulant with Xarelto
Plan for device interrogation
Chronic kidney disease stage III:
Avoid nephrotoxic
Monitor renal function
Depression, anxiety, PTSD, history of polysubstance abuse:
Continue Seroquel
Continue BuSpar
Continue naltrexone
Hyperlipidemia:
Continue high-dose statins
Diabetes mellitus:
Add insulin sliding scale
Update hemoglobin A1c
Keep current diet
DVT prophylaxis:
Xarelto
CODE STATUS:
Full code
Total time spent on today's encounter was 52 minutes which included time spent in counseling the patient/family regarding diagnosis and treatment plan as listed above, goals of care, and symptom management. Case was discussed with nursing staff,
specialists, and care coordinators/case management. All labs and imaging personally reviewed by me. Remainder the time spent in detailed review of previous records, lab data, imaging, and other medical provider documentation.
Anticipated Discharge: 24 - 48 hours
Subjective/Interval History
-
Date of Service: May 11, 2024
Patient feels less shortness of breath. No chest pain. Afebrile
Objective Data
-
Labs:
Laboratory Results
05/11/24
07:17
WBC 5.4
Hgb 11.2 L
Hct 35.5 L
Plt Count 268
Sodium 140
Potassium 3.9
Chloride 105
Carbon Dioxide 25
BUN 25 H
Creatinine 1.8 H
Glucose 146 H
Calcium 8.8
Vital Signs:
Vital Signs
Temp Pulse Resp BP Pulse Ox
97.5 F 72 18 125/77 97
05/11/24 06:48 05/11/24 06:48 05/11/24 06:48 05/11/24 06:48 05/11/24 06:48
I&O
05/10/24 05/11/24 05/12/24
06:59 06:59 06:59
Intake Total 960 / 960
Output Total 1000 / 1000 1300 / 1300
Balance -1000 / -1000 -340 / -340
--- NOTE | 2024-05-11 13:28 | W.PN.CD ---
Addendum entered and electronically signed by Dru Owens MD 05/11/24 15:57:
Clarification: Patient's device is [employer] not [employer]. Reached out to them for interrogation.
Original Note:
Today's Communication / Plan
-
Continue diuresis with 40 mg IV twice daily Lasix
Continue to hold losartan for STERLING. Resume as tolerated.
[employer] to interrogate device
Impression / Plan
-
IMPRESSION/PLAN: 63-year-old male (reportedly follows at the [facility]), with heart failure (type unknown), atrial fibrillation (type unknown, on rivaroxaban), CKD, NIDDM, hypertension, dyslipidemia, current smoker, and depression who presented to the
emergency department with a chief complaint of shortness of breath.
Primary fire fighters dispatcher: [facility], specific physician unknown
Heart failure with reduced ejection fraction (EF 30-35%)
-Suspect that this predates admission given his medication list and presence of ICD. He reports that he follows at the [facility] for cardiology but they have no record of him ever being seen there.
-Echo (05/10/24) shows LVEF 30-35% with global hypokinesis, stage III DD, moderate MR, moderate to severe TR with PASP 58 mmHg
-Continue diuresis with furosemide 40 mg IV twice daily, this requires intensive monitoring
-GDMT: Continue carvedilol 6.25 mg twice daily and dapagliflozin 10 mg daily. Losartan on hold for STERLING, resume as tolerated. Defer MRA to primary fire fighters dispatcher.
-He is at his lowest documented weight at this facility, dry weight to be determined
-Monitor daily weight, I/O, and BMP with diuresis
-Heart failure education
Atrial fibrillation, type unknown
-Currently rate controlled, he was in sinus on EKG in September. Will ask [employer] to interrogate his device to get an idea of A-fib burden.
-He is on amiodarone, unclear if this is for atrial fibrillation or another arrhythmia - continue 200 mg daily
-Oral Anticoagulation: Xarelto 20 mg every evening, appropriate dosing as CrCl >50
-[id number]: Score at least 3 (Heart failure, DM, HTN)
CKD stage III
-Near prior baseline
-Follow with diuresis
Hypertension, stable, follow with diuresis
NIDDM, per primary
AICD, appears to be [employer] on CXR
Current tobacco abuse, cessation recommended, he adamantly refuses
Prior EtOH with crack/cocaine use, current sobriety
PTSD, anxiety, depression
Subjective: Feels improved today. Wondering when he can go home. He received 40 mg IV Lasix twice yesterday. Weight today is 106.7 kg from 107.1 kg yesterday. Creatinine is 1.8 from 1.6.
Physical Exam
Vital Signs/Labs
Vital Signs
Temp Pulse Resp BP Pulse Ox
97.4 F 73 20 148/79 96
05/11/24 12:50 05/11/24 12:50 05/11/24 12:50 05/11/24 12:50 05/11/24 12:50
05/10/24 05/11/24 05/12/24
06:59 06:59 06:59
Actual Weight 111 kg 106.685 kg
05/11/24 07:17
05/11/24 07:17
Triglycerides 102 mg/dl (10-149) 05/11/24 07:17
LDL Cholesterol, Calc 45 mg/dl 05/11/24 07:17
VLDL Cholesterol, Calc 20 mg/dl (0-30) 05/11/24 07:17
HDL Cholesterol 38 mg/dl 05/11/24 07:17
05/10/24
00:13
Usd-V-Meusdcpklln Pept 2940
LAB Results
05/10/24 05/10/24 05/10/24
00:13 04:58 13:10
Troponin I 0.023 0.027 0.025
05/10/24 05/11/2405/11/25
18:20 00:15 01:13
Troponin I 0.021 Cancelled 0.022
Physical Exam
Constitutional: No acute distress and Comfortable
Cardiovascular: Pedal edema is absent, Rhythm/rate is irregular, Systolic murmur present and S1S2 is normal
Respiratory: Respiratory effort normal and Lungs clear to auscul.
Neuro/Psych: AO x 3
Data Reviewed
-
Date of Service: May 11, 2024
Medical Decision Making: Reviewed Test Results, Independent Historian Assessment, Test Interpretation and Review of Case with other Provider
EKG: Tracing Personally Visualized and interpreted
Echo: Tracing Personally Visualized and interpreted
Labs: Labs Reviewed by me
Old Records: Requested and Reviewed
--- NOTE | 2024-05-11 16:07 | CM ---
Pt seen bedside. Initial assessment completed. Admitted for SOB.
Pt reports he lives w/ 3 roommates in a 3ST[facility]- 3 steps to enter. Pt states he is independent w/ ambulating, denies any DME.
Pt denies SNF/VN/PT. Pt denies any current services. Pt is a (22 years served)
Address, point of contact and insurance verified
PCP: Pt does not remember the pronunciation of his doctor's name but stated she is a physician at [facility]
Pharmacy: [facility]. Pt stated the OR usually would mail his medications
PT/OT eval ordered, will await recommendations, if any
Plan: CM will cont to follow hospital course
--- NOTE | 2024-05-11 16:47 | PTCARENOTE ---
Pt refused blood glucose checks , states he is not going to be stuck. Hospitalist notified .
[2024-05-11] MEDS: SEROQUEL 100 MG PO (21:01)
[2024-05-11] MEDS: MINIPRESS 10 MG PO (21:01)
[2024-05-11] MEDS: XARELTO 20 MG PO (21:01)
[2024-05-11] MEDS: BENADRYL 6.25 MG IV (23:47)
--- NOTE | 2024-05-11 23:57 | PTCARENOTE ---
Patient stated that he was nauseous and noted to be wrenching. Nurse practitioner notified; order placed for IV Benadryl. See MAR for administration. Patient sitting up with basin.
[2024-05-12] VITALS (7 sets, daily range): BP systolic 93–141; BP diastolic 60–85; BMI 30.4
[2024-05-12] MEDS: SENOKOT-S 1 TABLET PO (01:15)
[2024-05-12] MEDS: MAALOX 30 ML PO (02:10)
--- NOTE | 2024-05-12 02:12 | PTCARENOTE ---
Patient still complaining of reflux and wrenching. Patient only bringing up small amounts of mucous. Patient states that his abdomen was hurting and that he felt constipated. Stomach is round and has positive bowel sounds. Nurse practitioner made
aware. Order placed for sennekot and maalox. See mar for administration.
[2024-05-12] MEDS: NSS (PRESERVATIVE FREE) 10 ML IV (03:01)
[2024-05-12] MEDS: TIGAN 200 MG IM (03:01)
[2024-05-12] MEDS: PROTONIX IV 40 MG IV (03:01)
--- NOTE | 2024-05-12 05:14 | W.PN.UPDATE ---
Update Note
Progress Note Update
RN notified OPERATIONS SUPERVISOR 2ND SHIFT, patient c/o nausea and dry heaving. Patient seen and evaluated. Reports non radiating pain at epigastric area, pain comes on with cough when he lays down, also reports he feels he is constipated, LBM 2 days ago normal stool per
patient. Patient noted to vomit once while OPERATIONS SUPERVISOR 2ND SHIFT was in the room, mostly liquid with some food particles. Abdomen tender, soft + BS 4 quadrant, noted belching. Denies chest pain or shortness of breath. no blood in stool or emesis. Stable VS.
Unrelieved with IM Tigan, Maalox. IV Protonix 40mg given, IV Tylenol ordered, Will order labs, Abdomen Xray to r/o Obstruction/ Ischemia?. NPO.
--- NOTE | 2024-05-12 05:17 | PTCARENOTE ---
Patient is still having nausea, vomiting, and wrenching. Patient states that his abdominal pain is 10/10. Per patient, he is still passing gas. Nurse practitioner updated about patient`s current condition. Order placed for IV Tylenol. See MAR for
administration details. Abdominal Xray ordered.
[2024-05-12] MEDS: OFIRMEV 100 IV (05:25)
--- NOTE | 2024-05-12 06:07 | PTCARENOTE ---
Patient refused daily weight due to abdominal pain. Heart failure education provided. Will pass along to dayshift RN.
[2024-05-12 07:05] LABS: Hematocrit 40.4 % (39.0-52.0); Hemoglobin 13.4 g/dL (13.0-18.0); Mean Corp Hgb Conc. 33.2 g/dL (33.0-37.0); Mean Corpuscular Hgb 26.2 pg (27.0-31.0); Mean Corpuscular Volume 79.1 fL (80.0-94.0); Platelet Count 265 10^3/uL (130-400); Red Blood Cell Count 5.11 10^6/uL (4.70-6.10); Red Cell Dist. Width 16.4 % (11.5-14.5); White Blood Cell Count 8.1 10^3/uL (4.8-10.8)
[2024-05-12 07:20] LABS: ALT (SGPT) 14 U/L (0-50); AST (SGOT) 18 U/L (17-59); Albumin 4.3 g/dl (3.5-5.0); Alkaline Phosphatase 100 U/L (38-126); Blood Urea Nitrogen 32 mg/dl (9-20); Calcium 8.8 mg/dl (8.4-10.2); Carbon Dioxide 22 mmol/L (22-30); Chloride 104 mmol/L (98-107); Estimated Creatinine Clearance 51 ml/min; Glucose 142 mg/dl (70-99); Lipase 43 U/L (23-300); Sodium 139 mmol/L (135-145); Total Bilirubin 0.6 mg/dl (0.2-1.3); Total Protein 7.4 g/dl (6.3-8.2); eGFR 39.15
--- NOTE | 2024-05-12 08:37 | W.PN.CD ---
Today's Communication / Plan
-
hold lasix
npo
w/u for abd pain/n/v underway
Impression / Plan
-
IMPRESSION/PLAN: 63-year-old male (reportedly follows at the [facility]), with heart failure (type unknown), atrial fibrillation (type unknown, on rivaroxaban), CKD, NIDDM, hypertension, dyslipidemia, current smoker, and depression who presented to the
emergency department with a chief complaint of shortness of breath.
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
Heart failure with reduced ejection fraction (EF 30-35%)
-Suspect that this predates admission given his medication list and presence of ICD. He reports that he follows at the [facility] for cardiology but they have no record of him ever being seen there.
-Echo (05/10/24) shows LVEF 30-35% with global hypokinesis, stage III DD, moderate MR, moderate to severe TR with PASP 58 mmHg
-wt is down, Cr up, he is vomiting.
-will hold Lasix
-GDMT: Continue carvedilol 6.25 mg twice daily and dapagliflozin 10 mg daily. Losartan on hold for STERLING, resume as tolerated. Defer MRA to primary millroom supervisor.
-He is at his lowest documented weight at this facility, dry weight to be determined
-Monitor daily weight, I/O, and BMP with diuresis
-Heart failure education
Atrial fibrillation, type unknown
-Currently rate controlled, he was in sinus on EKG in September. [facility] Sci asked to interrogate his device to get an idea of A-fib burden.
-He is on amiodarone, unclear if this is for atrial fibrillation or another arrhythmia - continue 200 mg daily, can be readdressed as an op
-Oral Anticoagulation: Xarelto 20 mg every evening, appropriate dosing as CrCl >50
-[id number]: Score at least 3 (Heart failure, DM, HTN)
Nausea and vomiting:
-diffuse abdominal pain reporting --refusing exam
-Abd xray ordered
-sent for norovirus
-npo
-holley and care per medicine
CKD stage III
-slightly up
-holding lasix
Hypertension, stable, follow with diuresis
NIDDM, per primary
AICD, appears to be Medtronic on CXR
Current tobacco abuse, cessation recommended, he adamantly refuses
Prior EtOH with crack/cocaine use, current sobriety
PTSD, anxiety, depression
Subjective:
he has had nausea and vomiting since last night, no cp or sob 'my heart is fine'
refusing exam currently
Physical Exam
Vital Signs/Labs
Vital Signs
Temp Pulse Resp BP Pulse Ox
97.3 F 83 18 117/79 96
05/12/24 03:47 05/12/24 03:47 05/12/24 03:47 05/12/24 03:47 05/12/24 03:47
05/11/24 05/12/24 05/13/24
06:59 06:59 06:59
Actual Weight 106.685 kg
05/12/24 06:50
05/12/24 06:50
Magnesium 2.0 mg/dl (1.6-2.3) 05/12/24 06:50
Triglycerides 102 mg/dl (10-149) 05/11/24 07:17
LDL Cholesterol, Calc 45 mg/dl 05/11/24 07:17
VLDL Cholesterol, Calc 20 mg/dl (0-30) 05/11/24 07:17
HDL Cholesterol 38 mg/dl 05/11/24 07:17
05/10/24
00:13
Hcr-X-Kuzysdkncua Pept 2940
LAB Results
05/10/24 05/10/24 05/10/24
00:13 04:58 13:10
Troponin I 0.023 0.027 0.025
05/10/24 05/11/24 05/11/24
18:20 00:15 01:13
Troponin I 0.021 Cancelled 0.022
Physical Exam
Constitutional: Other (appears uncomfortable, refuses exam at this time)
Data Reviewed
-
Date of Service: May 12, 2024
Medical Decision Making: Review of Case with other Provider (Dr Wang holding lasix today n/v main concern)
EKG: Other (tele afib with rare control )
--- NOTE | 2024-05-12 08:56 | W.PN.HOSP.TC ---
Addendum entered and electronically signed by Montrell Wang MD 05/12/24 15:13:
D/c CT scan abd. Norovirus +
Addendum entered and electronically signed by Montrell Wang MD 05/12/24 13:48:
Permanent A fib.
Original Note:
Today's Communication/Plan
-
X-ray of the abdomen.
Assessment / Plan
Assessment / Plan
Physical exam:
General: Acute on chronically ill
HEENT: Normocephalic, Atraumatic and Moist Mucous Membranes
Respiratory: Clear to Auscultation; Negative Wheezes, Rales or Rhonchi
Cardiac: Regular Rhythm and S1/S2
GI: Soft, tender and distended, no peritoneal signs
Musculoskeletal: No Clubbing, No Cyanosis. Bilateral lower extremity edema
Neuro: Awake, Alert and Oriented, no neurological deficits.
Psych: Calm, cognitive deficits present.
A/P:
Acute on chronic systolic congestive heart failure:
On IV Lasix 40 mg twice a day but on hold now
GDMT meds including beta-blockers, ARB holding for STERLING, SGT L2 inhibitors. Deferring MRA to outpatient cardiology.
Updated echocardiogram here shows EF 30 to 35% and stage III diastolic dysfunction, moderate mitral regurgitation, moderate to severe tricuspid regurgitation with moderate pulmonary hypertension
AICD in place-Plan for device interrogation
Discussed with cardiology today
PT OT eval
Abdominal pain nausea and vomiting:
Likely gastroenteritis
Check stool for norovirus
N.p.o. and start clear liquid diet later once symptomatically improved
X-ray of the abdomen no significant acute pathology but if not improvement might consider CT of the abdomen down the road
Continue to monitor clinical course
Atrial fibrillation, likely paroxysmal:
Continue rate control with beta-blockers
Continue antiarrhythmics with amiodarone
Continue anticoagulant with Xarelto
Plan for device interrogation
Chronic kidney disease stage III:
Avoid nephrotoxic
Monitor renal function
Depression, anxiety, PTSD, history of polysubstance abuse:
Continue Seroquel
Continue BuSpar
Continue naltrexone
Hyperlipidemia:
Continue high-dose statins
Diabetes mellitus:
Add insulin sliding scale
Update hemoglobin A1c
Keep current diet
DVT prophylaxis:
Xarelto
CODE STATUS:
Full code
Anticipated Discharge: 24 - 48 hours
Subjective/Interval History
-
Date of Service: May 12, 2024
Patient with abdominal discomfort nausea and loose stools. Afebrile. No shortness of breath
Objective Data
-
Labs:
Laboratory Results
05/12/24
06:50
WBC 8.1
Hgb 13.4
Hct 40.4
Plt Count 265
Sodium 139
Potassium 4.0
Chloride 104
Carbon Dioxide 22
BUN 32 H
Creatinine 1.9 H
Glucose 142 H
Calcium 8.8
Total Bilirubin 0.6
AST 18
ALT 14
Alkaline Phosphatase 100
Vital Signs:
Vital Signs
Temp Pulse Resp BP Pulse Ox
99.3 F 92 18 141/76 98
05/12/24 07:35 05/12/24 07:35 05/12/24 07:35 05/12/24 07:35 05/12/24 07:35
I&O
05/11/24 05/12/24 05/13/24
06:59 06:59 06:59
Intake Total 960 / 960 1200 / 1200
Output Total 1300 / 1300 1425 / 1425
Balance -340 / -340 -225 / -225
[2024-05-12] MEDS: DILAUDID 0.25 MG IV ×4 (09:03→20:25)
--- NOTE | 2024-05-12 09:09 | PTCARENOTE ---
Patient c/o nausea with intermittent abd pain, mid epigastric cramping -rate 10 out of 10. Had 2 episodes of loose stool early this am , hospitalist notified.
[2024-05-12] MEDS: FARXIGA PO (09:36)
[2024-05-12] MEDS: BUSPAR PO (09:36)
[2024-05-12] MEDS: COREG PO (09:36)
[2024-05-12] MEDS: FLOMAX PO (09:37)
[2024-05-12] MEDS: PACERONE PO (09:37)
[2024-05-12] MEDS: LASIX IV (09:37)
[2024-05-12] MEDS: REVIA PO (09:37)
[2024-05-12] MEDS: LIPITOR PO (09:37)
[2024-05-12] MEDS: SENOKOT-S PO ×2 (09:38→21:29)
--- NOTE | 2024-05-12 10:37 | CM ---
CM reviewed chart, patient seen bedside, reports no needs to CM at this time. CM will watch for PT/OT evaluations when able, will continue to follow for all discharge planning needs.
Plan; home no needs likely, watch for PT/OT recommendations when patient able.
[2024-05-12] MEDS: OMNIPAQUE 50 ML PO (13:28)
[2024-05-12] MEDS: MINIPRESS 10 MG PO (21:29)
[2024-05-12] MEDS: SEROQUEL 100 MG PO (21:29)
[2024-05-12] MEDS: COREG 6.25 MG PO (21:29)
[2024-05-12] MEDS: BUSPAR 10 MG PO (21:29)
[2024-05-12] MEDS: XARELTO 20 MG PO (21:29)
[2024-05-13] VITALS (10 sets, daily range): BP systolic 105–139; BP diastolic 62–84; PULSE 76; O2SAT 95
[2024-05-13] MEDS: DILAUDID 0.25 MG IV (02:52)
[2024-05-13] MEDS: FARXIGA 10 MG PO (08:04)
[2024-05-13] MEDS: LIPITOR 80 MG PO (08:05)
[2024-05-13] MEDS: FLOMAX 0.4 MG PO (08:07)
[2024-05-13] MEDS: SENOKOT-S 1 TABLET PO ×2 (08:07→20:53)
[2024-05-13] MEDS: PACERONE 200 MG PO (08:07)
[2024-05-13] MEDS: BUSPAR 10 MG PO ×2 (08:07→20:52)
[2024-05-13] MEDS: REVIA 50 MG PO (08:08)
[2024-05-13] MEDS: COREG 6.25 MG PO ×2 (08:08→21:00)
--- NOTE | 2024-05-13 08:27 | W.PN.CD ---
Today's Communication / Plan
-
continue to hold lasix
will need to establish diuretic discharge dosing
Impression / Plan
-
IMPRESSION/PLAN: 63-year-old male (reportedly follows at the [facility]), with heart failure (type unknown), atrial fibrillation (type unknown, on rivaroxaban), CKD, NIDDM, hypertension, dyslipidemia, current smoker, and depression who presented to the
emergency department with a chief complaint of shortness of breath.
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
Heart failure with reduced ejection fraction (EF 30-35%)
-Suspect that this predates admission given his medication list and presence of ICD. He reports that he follows at the [facility] for cardiology but they have no record of him ever being seen there.
-Echo (05/10/24) shows LVEF 30-35% with global hypokinesis, stage III DD, moderate MR, moderate to severe TR with PASP 58 mmHg
-wt is down, Cr up, he is vomiting.
-will hold Lasix given Norovirus
-GDMT: Continue carvedilol 6.25 mg twice daily and dapagliflozin 10 mg daily. Losartan on hold for STERLING, resume as tolerated. Defer MRA to primary shop welder.
-He is at his lowest documented weight at this facility, home dry weight was '240', dry weight to be determined,
-Monitor daily weight, I/O, and BMP with diuresis
-Heart failure education
Atrial fibrillation,persistent
-Currently rate controlled, he was in sinus on EKG in September.
-Device interrogation: followed at [facility]
leads normal, Ap 51% Vpace 10%,
AF persistent since March
-can consider op cardioversion once recovers completely from viral infection
Amiodarone continue 200 mg daily, can be readdressed as an op
-Oral Anticoagulation: Xarelto 20 mg every evening, appropriate dosing as CrCl >50
-[id number]: Score at least 3 (Heart failure, DM, HTN)
Nausea and vomiting 05/11/24 evening
-+NOROVIRUS
-diffuse abdominal pain reporting --refusing exam
CKD stage III
-slightly up
-holding lasix
Hypertension, stable, follow with diuresis
NIDDM, per primary
AICD, appears to be Medtronic on CXR
Current tobacco abuse, cessation recommended, he adamantly refuses
Prior EtOH with crack/cocaine use, current sobriety
PTSD, anxiety, depression
Subjective:
he is feeling better but still with abdominal pain and diarrhea, tolerating liquids
Physical Exam
Vital Signs/Labs
Vital Signs
Temp Pulse Resp BP Pulse Ox
98.4 F 84 20 108/62 96
05/13/24 02:53 05/13/24 02:55 05/13/24 02:53 05/13/24 02:55 05/13/24 02:53
05/12/24 05/13/24 05/14/24
06:59 06:59 06:59
Actual Weight 104.411 kg
Magnesium 2.0 mg/dl (1.6-2.3) 05/12/24 06:50
Triglycerides 102 mg/dl (10-149) 05/11/24 07:17
LDL Cholesterol, Calc 45 mg/dl 05/11/24 07:17
VLDL Cholesterol, Calc 20 mg/dl (0-30) 05/11/24 07:17
HDL Cholesterol 38 mg/dl 05/11/24 07:17
05/10/24
00:13
Ldp-C-Trusagzmesz Pept 2940
LAB Results
05/10/24 05/10/24 05/11/24
13:10 18:20 00:15
Troponin I 0.025 0.021 Cancelled
05/11/24
01:13
Troponin I 0.022
Physical Exam
Constitutional: No acute distress
Cardiovascular: Pedal edema is absent, JVD pressure is normal, Systolic murmur absent, Diastolic murmur absent and Rhythm/rate is irregular
Respiratory: Respiratory effort normal, Lungs clear to auscul., Wheeze Absent and Crackles Absent
Neuro/Psych: AO x 3
Data Reviewed
-
Date of Service: May 13, 2024
Medical Decision Making: Review of Case with other Provider (Dr Wang continue to hold lasix, will need to determine op regimen, no dccv this hopsitalization would do with typical cards as op)
[2024-05-13 08:32] LABS: Hematocrit 40.4 % (39.0-52.0); Hemoglobin 13.4 g/dL (13.0-18.0); Mean Corp Hgb Conc. 33.2 g/dL (33.0-37.0); Mean Corpuscular Volume 78.4 fL (80.0-94.0); Mean Platelet Volume 8.9 fL (7.4-10.4); Platelet Count 223 10^3/uL (130-400); Red Blood Cell Count 5.15 10^6/uL (4.70-6.10); Red Cell Dist. Width 16.5 % (11.5-14.5); White Blood Cell Count 5.9 10^3/uL (4.8-10.8)
[2024-05-13 08:34] LABS: Blood Urea Nitrogen 40 mg/dl (9-20); Calcium 8.8 mg/dl (8.4-10.2); Carbon Dioxide 17 mmol/L (22-30); Chloride 105 mmol/L (98-107); Estimated Creatinine Clearance 50 ml/min; Glucose 118 mg/dl (70-99); Potassium 3.8 mmol/L (3.5-5.1); Sodium 139 mmol/L (135-145); eGFR 39.15
[2024-05-13 09:09] LABS: Absolute Neutrophils -Man Diff 3.4 10^3/uL (1.4-6.5); Band Neutrophils 0 % (0-3); Lymphocytes 30 % (20-51); Segmented Neutrophils 58 % (42-75)
[2024-05-13 09:10] LABS: Monocytes 12 % (2-9); Normal RBC Morphology Yes; Platelets Checked Yes; Total Cells Counted 100
--- NOTE | 2024-05-13 09:33 | PTOTSP ---
The patient is independent with mobility within the room and denies concerns regarding mobility upon return home. No PT needs identified at this time, will sign off.
--- NOTE | 2024-05-13 10:22 | W.PN.HOSP.TC ---
Today's Communication/Plan
-
Start diet and advance as tolerated. Holding diuretics.
Assessment / Plan
Assessment / Plan
Physical exam:
General: Acute on chronically ill
HEENT: Normocephalic, Atraumatic and Moist Mucous Membranes
Respiratory: Clear to Auscultation; Negative Wheezes, Rales or Rhonchi
Cardiac: Regular Rhythm and S1/S2
GI: Soft, non tender and distended, no peritoneal signs
Musculoskeletal: No Clubbing, No Cyanosis. Bilateral lower extremity edema
Neuro: Awake, Alert and Oriented, no neurological deficits.
Psych: Calm, cognitive deficits present.
A/P:
Acute on chronic systolic congestive heart failure:
On IV Lasix 40 mg twice a day but on hold now
GDMT meds including beta-blockers, ARB holding for STERLING, SGT L2 inhibitors. Deferring MRA to outpatient cardiology.
Updated echocardiogram here shows EF 30 to 35% and stage III diastolic dysfunction, moderate mitral regurgitation, moderate to severe tricuspid regurgitation with moderate pulmonary hypertension
AICD in place-Plan for device interrogation
Discussed with cardiology today on 05/13
PT OT eval
Acute viral gastroenteritis:
Checked stool for norovirus and positive
Started clear liquid diet and advance as tolerated
X-ray of the abdomen no significant acute pathology
Continue to monitor clinical course
Atrial fibrillation, likely paroxysmal:
Continue rate control with beta-blockers
Continue antiarrhythmics with amiodarone
Continue anticoagulant with Xarelto
Plan for device interrogation
Chronic kidney disease stage III:
Avoid nephrotoxic
Monitor renal function
Depression, anxiety, PTSD, history of polysubstance abuse:
Continue Seroquel
Continue BuSpar
Continue naltrexone
Hyperlipidemia:
Continue high-dose statins
Diabetes mellitus:
Add insulin sliding scale
Update hemoglobin A1c
Keep current diet
DVT prophylaxis:
Xarelto
CODE STATUS:
Full code
Anticipated Discharge: 24 - 48 hours
Subjective/Interval History
-
Date of Service: May 13, 2024
Patient states the symptoms of nausea and vomiting subsiding and less abdominal pain and diarrhea. Afebrile. Less shortness of breath
Objective Data
-
Labs:
Laboratory Results
05/13/24 05/13/24
07:26 07:27
WBC 5.9
Hgb 13.4
Hct 40.4
Plt Count 223
Sodium 139
Potassium 3.8
Chloride 105
Carbon Dioxide 17 L
BUN 40 H
Creatinine 1.9 H
Glucose 118 H
Calcium 8.8
Vital Signs:
Vital Signs
Temp Pulse Resp BP Pulse Ox
98.4 F 84 20 108/62 96
05/13/24 02:53 05/13/24 02:55 05/13/24 02:53 05/13/24 02:55 05/13/24 02:53
I&O
05/12/24 05/13/24 05/14/24
06:59 06:59 06:59
Intake Total 1200 / 1200
Output Total 1425 / 1425
Balance -225 / -225
--- NOTE | 2024-05-13 12:36 | CM ---
manager drug met with patient this am and patient states that he is independent with ad's and ambulation, plan is to home when stable no needs, [facility]
Plan; Home no needs when stable, Discharge instructions to be faxed to Rody JENKINS at the [facility],
[2024-05-13] MEDS: SEROQUEL 100 MG PO (20:52)
[2024-05-13] MEDS: XARELTO 20 MG PO (20:53)
[2024-05-13] MEDS: TYLENOL 650 MG PO (20:57)
[2024-05-13] MEDS: MINIPRESS 10 MG PO (21:00)
[2024-05-14 03:29] VITALS: BP 122/78
[2024-05-14 06:00] VITALS: BMI 30.3
[2024-05-14 07:00] VITALS: BP 118/77
[2024-05-14] MEDS: BUSPAR 10 MG PO ×2 (08:16→20:00)
[2024-05-14] MEDS: SENOKOT-S 1 TABLET PO ×2 (08:17→20:00)
[2024-05-14] MEDS: FARXIGA 10 MG PO (08:17)
[2024-05-14] MEDS: LIPITOR 80 MG PO (08:18)
[2024-05-14] MEDS: REVIA 50 MG PO (08:18)
[2024-05-14] MEDS: COREG 6.25 MG PO ×2 (08:18→20:08)
[2024-05-14] MEDS: PACERONE 200 MG PO (08:19)
[2024-05-14] MEDS: FLOMAX 0.4 MG PO (08:19)
--- NOTE | 2024-05-14 09:11 | W.PN.HOSP.TC ---
Today's Communication/Plan
-
Holding diuretics. Discharge plan
Assessment / Plan
Assessment / Plan
Physical exam:
General: Acute on chronically ill
HEENT: Normocephalic, Atraumatic and Moist Mucous Membranes
Respiratory: Clear to Auscultation; Negative Wheezes, Rales or Rhonchi
Cardiac: Regular Rhythm and S1/S2
GI: Soft, non tender and distended, no peritoneal signs
Musculoskeletal: No Clubbing, No Cyanosis. Bilateral lower extremity edema
Neuro: Awake, Alert and Oriented, no neurological deficits.
Psych: Calm, cognitive deficits present.
A/P:
Acute on chronic systolic congestive heart failure:
On IV Lasix 40 mg twice a day but on hold now. Final determination on restarting diuretics tomorrow.
GDMT meds including beta-blockers, ARB holding for STERLING, SGT L2 inhibitors. Deferring MRA to outpatient cardiology.
Updated echocardiogram here shows EF 30 to 35% and stage III diastolic dysfunction, moderate mitral regurgitation, moderate to severe tricuspid regurgitation with moderate pulmonary hypertension
AICD in place-Plan for device interrogation
Discussed with cardiology on 05/13
PT OT eval
Acute viral gastroenteritis:
Checked stool for norovirus and positive
Started clear liquid diet and advance as tolerated
X-ray of the abdomen no significant acute pathology
Continue to monitor clinical course
Atrial fibrillation, likely paroxysmal:
Continue rate control with beta-blockers
Continue antiarrhythmics with amiodarone
Continue anticoagulant with Xarelto
Plan for device interrogation
Chronic kidney disease stage III:
Creatinine down to 1.6 today
Avoid nephrotoxic
Monitor renal function
Depression, anxiety, PTSD, history of polysubstance abuse:
Continue Seroquel
Continue BuSpar
Continue naltrexone
Hyperlipidemia:
Continue high-dose statins
Diabetes mellitus:
Add insulin sliding scale
Update hemoglobin A1c
Keep current diet
DVT prophylaxis:
Xarelto
CODE STATUS:
Full code
Anticipated Discharge: Within 24 hours
Subjective/Interval History
-
Date of Service: May 14, 2024
Patient feels better today.
Objective Data
-
Labs:
Laboratory Results
05/14/24
06:00
WBC Pending
Hgb Pending
Hct Pending
Plt Count Pending
Sodium Pending
Potassium Pending
Chloride Pending
Carbon Dioxide Pending
BUN Pending
Creatinine Pending
Glucose Pending
Calcium Pending
Vital Signs:
Vital Signs
Temp Pulse Resp BP Pulse Ox
98.0 F 72 18 118/77 99
05/14/24 07:00 05/14/24 07:00 05/14/24 07:00 05/14/24 07:00 05/14/24 07:00
I&O
05/13/24 05/14/24 05/15/24
06:59 06:59 06:59
Intake Total 960 / 960
Balance 960 / 960
[2024-05-14 10:15] LABS: % Basophils 0.2 % (0-2); % Eosinophils 2.2 % (0-6); % Immature Granulocytes 0.2 % (0-0.5); % Lymphocytes 27.7 % (20.5-51.1); % Monocytes 14.6 % (1.7-9.3); % Neutrophils 55.1 % (42.2-75.2); Absolute Eosinophils 0.1 10^3/uL (0-0.7); Absolute Lymphocytes 1.1 10^3/uL (1.2-3.4); Absolute Monocytes 0.6 10^3/uL (0.1-0.6); Absolute Neutrophils 2.2 10^3/uL (1.4-6.5); Hematocrit 45.2 % (39.0-52.0); Hemoglobin 14.2 g/dL (13.0-18.0); Mean Corp Hgb Conc. 31.4 g/dL (33.0-37.0); Mean Corpuscular Hgb 25.4 pg (27.0-31.0); Mean Platelet Volume 9.1 fL (7.4-10.4); Nucleated Red Blood Cells % 0 % (-); Platelet Count 290 10^3/uL (130-400); Red Blood Cell Count 5.58 10^6/uL (4.70-6.10); Red Cell Dist. Width 16.3 % (11.5-14.5); White Blood Cell Count 4.1 10^3/uL (4.8-10.8)
[2024-05-14 10:29] LABS: Blood Urea Nitrogen 32 mg/dl (9-20); Calcium 8.9 mg/dl (8.4-10.2); Carbon Dioxide 21 mmol/L (22-30); Chloride 104 mmol/L (98-107); Estimated Creatinine Clearance 60 ml/min; Glucose 155 mg/dl (70-99); Sodium 141 mmol/L (135-145); eGFR 48.11
[2024-05-14 11:17] VITALS: BP 114/75
--- NOTE | 2024-05-14 12:06 | W.PN.CD ---
Addendum entered and electronically signed by Josh Griffin MD 05/14/24 13:38:
I saw and examined the patient.
The END POLISHER's note was reviewed and I agree with the note.
Patient currently comfortable no complaints of shortness of breath the lungs are clear lower extremities without significant edema. Creatinine improving and 1.6. Discussed importance of daily weights and follow-up with his primary apprentice/lineman
after discharge patient will also need follow-up renal profile approximately 1 week after discharge.
Possible discharge tomorrow.
Call if additional assistance required
Original Note:
Today's Communication / Plan
-
continue to hold Lasix, creatinine improved to 1.6 today.
weight down to 229 lbs today, likely at dry weight.
Lasix 20mg daily as outpatient, but may just need PRN Lasix for weight gain until seen in follow up.
follow up BMP in 1 week from discharge and follow up with outpatient apprentice/lineman at [facility].
Impression / Plan
-
IMPRESSION/PLAN: 63-year-old male (follows at the [facility]), with heart failure (type unknown), atrial fibrillation (type unknown, on rivaroxaban), CKD, NIDDM, hypertension, dyslipidemia, current smoker, and depression who presented to the emergency
department with a chief complaint of shortness of breath.
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
Heart failure with reduced ejection fraction (EF 30-35%) - chronic.
-Suspect that this predates admission given his medication list and presence of ICD. He reports that he follows at the [facility] for cardiology but they have no record of him ever being seen there.
-Echo (05/10/24) shows LVEF 30-35% with global hypokinesis, stage III DD, moderate MR, moderate to severe TR with PASP 58 mmHg.
-weight is down to 229 lbs, at his lowest documented weight at this facility, home dry weight was '240 lbs'.
-Lasix on hold given acute Norovirus and STERLING. creatinine is down to 1.6. typically on Lasix 20mg daily at home.
-GDMT: Continue carvedilol 6.25 mg twice daily and dapagliflozin 10 mg daily. Losartan on hold for STERLING, resume as tolerated. Defer MRA to primary apprentice/lineman.
-Monitor daily weight, I/O, and BMP with diuresis.
-Heart failure education.
Atrial fibrillation - persistent.
-rate controlled, he was in sinus on EKG in September.
-Device interrogation: followed at [facility]
leads normal, Ap 51% Vpace 10%, AF persistent since March 2024.
-can consider op cardioversion once recovers completely from viral infection.
-continue Amiodarone 200 mg daily, reassess in outpatient cardiology follow up.
-Oral Anticoagulation: Xarelto 20 mg every evening, appropriate dosing as CrCl >50.
-[id number]: Score at least 3 (Heart failure, DM, HTN).
Nausea and vomiting 05/11/24 evening
-+NOROVIRUS.
-diffuse abdominal pain improved, eating lunch during exam.
CKD stage III - chronic.
-holding Lasix and Losartan.
-creatinine 1.6 today.
Hypertension - stable on meds, continue.
NIDDM, per primary
AICD, appears to be Medtronic on CXR
Current tobacco abuse, cessation recommended, he adamantly refuses
Prior EtOH with crack/cocaine use, current sobriety
PTSD, anxiety, depression
Physical Exam
Vital Signs/Labs
Vital Signs
Temp Pulse Resp BP Pulse Ox
97.4 F 74 18 114/75 99
05/14/24 11:17 05/14/24 11:17 05/14/24 11:17 05/14/24 11:17 05/14/24 11:17
05/13/24 05/14/24 05/15/24
06:59 06:59 06:59
Actual Weight 230 lb 3 oz 229 lb 4.8 oz
05/14/24 09:36
05/14/24 09:36
Magnesium 2.0 mg/dl (1.6-2.3) 05/12/24 06:50
Triglycerides 102 mg/dl (10-149) 05/11/24 07:17
LDL Cholesterol, Calc 45 mg/dl 05/11/24 07:17
VLDL Cholesterol, Calc 20 mg/dl (0-30) 05/11/24 07:17
HDL Cholesterol 38 mg/dl 05/11/24 07:17
05/10/24
00:13
Jba-U-Llzhuomuntr Pept 2940
Physical Exam
Constitutional: No acute distress and Comfortable
EENT: Anicteric and Moist mucous membranes
Cardiovascular: Rhythm/rate is irregular
Respiratory: Respiratory effort normal
GI: Soft, Non tender and Normal bowel sounds
Neuro/Psych: AO x 3
Other: Skin (warm, dry)
Data Reviewed
-
Date of Service: May 14, 2024
Medical Decision Making: Reviewed Test Results
EKG: Tracing Personally Visualized and interpreted
Medical Tests (PFT, Pathology etc): Report Reviewed by me
Labs: Labs Reviewed by me
Old Records: Reviewed
[2024-05-14 15:00] VITALS: BP 138/90
[2024-05-14] MEDS: SEROQUEL 100 MG PO (20:01)
[2024-05-14] MEDS: XARELTO 20 MG PO (20:01)
[2024-05-14] MEDS: TYLENOL 650 MG PO (20:02)
[2024-05-14] MEDS: MINIPRESS 10 MG PO (20:09)
[2024-05-14 20:15] VITALS: BP 143/85
[2024-05-14 23:00] VITALS: BP 114/72
[2024-05-15 06:00] VITALS: BMI 30.2
[2024-05-15 07:55] VITALS: BP 123/82
[2024-05-15] MEDS: FARXIGA 10 MG PO (08:35)
[2024-05-15] MEDS: SENOKOT-S 1 TABLET PO (08:36)
[2024-05-15] MEDS: LIPITOR 80 MG PO (08:36)
[2024-05-15] MEDS: COREG 6.25 MG PO (08:37)
[2024-05-15] MEDS: REVIA 50 MG PO (08:38)
[2024-05-15] MEDS: FLOMAX 0.4 MG PO (08:38)
[2024-05-15] MEDS: BUSPAR 10 MG PO (08:38)
[2024-05-15] MEDS: PACERONE 200 MG PO (08:39)
[2024-05-15 08:52] LABS: Blood Urea Nitrogen 23 mg/dl (9-20); Calcium 8.7 mg/dl (8.4-10.2); Carbon Dioxide 22 mmol/L (22-30); Chloride 103 mmol/L (98-107); Estimated Creatinine Clearance 53 ml/min; Glucose 135 mg/dl (70-99); Potassium 3.8 mmol/L (3.5-5.1); Sodium 140 mmol/L (135-145); eGFR 48.11
--- NOTE | 2024-05-15 08:53 | W.PN.HOSP.TC ---
Today's Communication/Plan
-
Discharge planning today
Assessment / Plan
Assessment / Plan
Physical exam:
General: Acute on chronically ill
HEENT: Normocephalic, Atraumatic and Moist Mucous Membranes
Respiratory: Clear to Auscultation; Negative Wheezes, Rales or Rhonchi
Cardiac: Regular Rhythm and S1/S2
GI: Soft, non tender and distended, no peritoneal signs
Musculoskeletal: No Clubbing, No Cyanosis. Bilateral lower extremity edema
Neuro: Awake, Alert and Oriented, no neurological deficits.
Psych: Calm, cognitive deficits present.
A/P:
Acute on chronic systolic congestive heart failure:
On IV Lasix 40 mg twice a day but on hold now. Final determination on restarting diuretics today and will go back to his home doses and adjustment as per his outpatient civil process server.
GDMT meds including beta-blockers, ARB holding for STERLING, SGT L2 inhibitors. Deferring MRA to outpatient cardiology.
Updated echocardiogram here shows EF 30 to 35% and stage III diastolic dysfunction, moderate mitral regurgitation, moderate to severe tricuspid regurgitation with moderate pulmonary hypertension
AICD in place-Plan for device interrogation
Discussed with cardiology prior
PT OT eval
Acute viral gastroenteritis:
Checked stool for norovirus and positive
Tolerating low-fat diet
X-ray of the abdomen no significant acute pathology
Continue to monitor clinical course
Permanent atrial fibrillation:
Continue rate control with beta-blockers
Continue antiarrhythmics with amiodarone
Continue anticoagulant with Xarelto
Plan for device interrogation
Chronic kidney disease stage III:
Creatinine down to 1.6 today and stable from yesterday
Avoid nephrotoxic
Monitor renal function
Depression, anxiety, PTSD, history of polysubstance abuse:
Continue Seroquel
Continue BuSpar
Continue naltrexone
Hyperlipidemia:
Continue high-dose statins
Diabetes mellitus:
Add insulin sliding scale
Update hemoglobin A1c at 6.5
Keep current diet
DVT prophylaxis:
Xarelto
CODE STATUS:
Full code
Anticipated Discharge: Today
Subjective/Interval History
-
Date of Service: May 15, 2024
Patient feels back to his baseline. No new complaint
Objective Data
-
Labs:
Laboratory Results
05/15/24
07:11
Sodium 140
Potassium 3.8
Chloride 103
Carbon Dioxide 22
BUN 23 H
Creatinine 1.6 H
Glucose 135 H
Calcium 8.7
Vital Signs:
Vital Signs
Temp Pulse Resp BP Pulse Ox
98.4 F 72 16 123/82 99
05/15/24 07:55 05/15/24 07:55 05/15/24 07:55 05/15/24 07:55 05/15/24 07:55
I&O
05/14/24 05/15/24 05/16/24
06:59 06:59 06:59
Intake Total 960 / 960 730 / 730
Balance 960 / 960 730 / 730
--- NOTE | 2024-05-15 09:30 | W.DCSUMMARY ---
Discharge Summary
Discharge Data
Date of Admission: 05/10/24
Date of Discharge: 05/15/24
-
Pending Results: No
Hospital Course
Patient is 63 years old male with history of CHF, A-fib, CKD, hypertension, diabetes mellitus, dyslipidemia, polysubstance abuse in the past, depression, came into the hospital shortness of breath and found to be in heart failure. Cardiology
consulted. His EF noted to be 30 to 35%. He had a device interrogation that showed A-fib was persistent since March, leads normal, AP 51% and V paced 10%. Patient was diuresed aggressively. Patient was kept on GDMT appropriate treatment.
Once he was close to his dry weight patient developed a complication of acute viral gastroenteritis with positive norovirus. His creatinine bumped. Diuretics were held. He was treated with supportive care. He was also made n.p.o. but later on
once he improved he was started on diet and he tolerated well. Patient renal function was monitored and he is back to his baseline with a creatinine of 1.6 and has remained stable over the last 48 hours. He is on his dry weight with weight down to
228 pounds. He will be back on his home doses of diuretics, check daily weights, BMP in 1 week, and recommended to follow-up with his outpatient driver sales to see if further adjustments will be required. Patient will be discharged in relatively
stable condition today.
Discharge duration: 33 minutes
Discharge Plan
-
Patient Disposition: Home (Routine Discharge)
Discharge Diagnosis/Procedures: Acute on chronic systolic congestive heart failure. Acute gastroenteritis with norovirus. Permanent atrial fibrillation. Chronic kidney disease stage III.
Diet: 2 Gram Sodium and Diabetic, Carb Controlled
Activity: As tolerated
Driving Restrictions: As prior to admission
Blood Work: Please PCP to order CBC, BMP within 1 week
Instructions: *PCP/Other Education Officer Heart Failure Instructions
Referrals:
Primary care, provider [Other] (See less than 1 week)
Dru Owens MD [Active] - in three to four weeks
Prescriptions:
Continued
atorvastatin [Lipitor] 80 mg Tablet
80 mg PO QPM
clonidine HCl 0.1 mg Tablet
0.1 mg PO BIDPRN PRN (Reason: anxiety)
carvedilol [Coreg] 6.25 mg Tablet
6.25 mg PO BID
cyanocobalamin (vitamin B-12) 1,000 mcg Tablet
1,000 mcg PO DAILY
buspirone 10 mg Tablet
10 mg PO BID
amiodarone 100 mg Tablet
100 mg PO DAILY
Xarelto 20 mg Tablet
20 mg PO HS
prazosin 5 mg Capsule
10 mg PO HSPRN PRN (Reason: night vázquez)
tamsulosin 0.4 mg Capsule
0.4 mg PO DAILY
furosemide [Lasix] 20 mg Tablet
20 mg PO DAILY
Jardiance 10 mg Tablet
10 mg PO DAILY
quetiapine [Seroquel] 100 mg tablet
150 mg PO HS
losartan 50 mg Tablet
50 mg PO DAILY
amlodipine [Norvasc] 10 mg Tablet
10 mg PO DAILY
metformin 1,000 mg Tablet
1,000 mg PO BID
Discharge Orders:
Discharge Patient (As Directed); Ordered 05/15/24
Ordered By: Montrell Wang
Discharge Date and Time
Discharge Date/Time: 05/15/24 10:44
Print Language: MOSOTHO
--- NOTE | 2024-05-15 10:25 | CM ---
CM reviewed chart, patient seen bedside, for discharge today. Patient denies needs upon discharge. CM will continue to follow for all discharge planning needs.
Plan; Home no needs
Discharge instructions to be faxed to Rody JENKINS at the [facility],
--- NOTE | 2024-05-16 10:44 | W.HF.CON ---
Heart Failure
- LV Function
Left ventricular function study result: LV Ejection fraction </= 35%
Ejection Fraction Percentage: 30-35
- ARNI
Patient already on ARNI: No
Heart Failure ARNI Contraindication: Acute Renal Failure
- ACEI/ARB
Patient already on ACEI/ARB: Yes
- Beta Franco
Patient already on Evidence Based Beta Franco: Yes
- Mineralocorticord Receptor Antagonist
Patient already on MRA: No
Heart Failure MRA Contraindication: Acute Renal Insufficiency
- SGLT-2 Inhibitor
Patient already on SGLT-2 Inhibitor: Yes
- Afib Anticoagulation
Patient already on Anticoagulation for Afib: Yes
- NYHA CHF Classification
NYHA CHF Classification Level: Class III - Symptoms w/ min exertion, interferes w/ nml daily activity
- ACC/AHA Stage
ACC/AHA Stage: Stage C: Symptomatic Heart Failure
== END 2024-05-15 10:44 | disposition home or self-care (01) | DRG 291 ==
LOC: 4 WEST ACU 06:17
PROVIDERS: Nurse Practitioner Gerontology; ADMITTING PHYSICIAN Hospitalist; ATTENDING PHYSICIAN Hospitalist; CONSULT PHYSICIAN Student in an Organized Health Care Education/Training Program; EMERGENCY PHYSICIAN Emergency Medicine
DX: I13.0 Hypertensive heart and chronic kidney disease with heart failure and stage 1 through stage 4 chronic kidney disease, or unspecified chronic kidney disease (principal); I50.43 Acute on chronic combined systolic (congestive) and diastolic (congestive) heart failure; I48.21 Permanent atrial fibrillation; F17.200 Nicotine dependence, unspecified, uncomplicated; N18.30 Chronic kidney disease, stage 3 unspecified; N40.0 Benign prostatic hyperplasia without lower urinary tract symptoms; F32.A Depression, unspecified; F43.10 Post-traumatic stress disorder, unspecified; F41.9 Anxiety disorder, unspecified; A08.4 Viral intestinal infection, unspecified; E78.5 Hyperlipidemia, unspecified; E11.22 Type 2 diabetes mellitus with diabetic chronic kidney disease; E78.00 Pure hypercholesterolemia, unspecified; Z11.52 Encounter for screening for COVID-19; I27.20 Pulmonary hypertension, unspecified; I70.0 Atherosclerosis of aorta; Z95.810 Presence of automatic (implantable) cardiac defibrillator
CPT/HCPCS: 71046; 74018; 80048; 80053; 80061; 83036; 83690; 83735; 83880; 84443; 84484; 85025; 85027; 87502; 87798; 87811; 93005; 93306; 96374; 96375; 97161; 97165; 99285; 99406; Q9950

== ENCOUNTER 2024-06-01 15:10 | Inpatient (IN) | payer OTHER, SELFPAY ==
[2024-06-01] VITALS (7 sets, daily range): BP systolic 120–153; BP diastolic 80–94; BMI 31.0; BMI 32.2
--- NOTE | 2024-06-01 11:10 | ED.GENMED ---
History of Present Illness
General
Chief Complaint: Heart Rate Problem
Source: patient and ambulance crew
Exam Limitations: none
Time Seen by Provider: 06/01/24 10:46
Nursing documentation reviewed up to this point in time: agreed with
History of Present Illness
History of Present Illness:
63-year-old male presents emergency department due to shortness of breath, nausea and vomiting and a rapid heart rate. He states he is going in and out of atrial fibrillation. He was at the [facility] in [place], and sent to those in emergency department
via ambulance.
Past History
Past History
ED Past Medical History: Arrthythmia (Atrial fibrillation), CHF, HTN, Hypercholesterolemia, Renal failure (Chronic renal insufficiency.), Psychiatric (Anxiety) and Other (Gout, STERLING, A-fib)
ED Past Surgical History: Cardiac (AICD)
Social History
Tobacco: Smoker
Alcohol: Former
Drug: Former user
Personal: Single
Living: alone
Employment: Not employed
Family History
Family History: Other (Noncontributory)
Review of Systems
Review of Systems
Allergies reviewed?: Yes
All Other Systems: Not applicable
Constitutional: Reports no symptoms
EENT: Reports no symptoms
Respiratory: Reports trouble breathing
Cardiac: Reports palpitations
ABD/GI: Reports vomiting and diarrhea
: Reports no symptoms
Musculoskeletal: Reports no symptoms
Skin: Reports no symptoms
Neurological: Reports no symptoms
Endocrine: Reports no symptoms
Hematologic/Lymphatic: Reports no symptoms
Psychiatric: Reports no symptoms
Phy Exam
Physical Exam
Physical Exam:
Physical Exam
General: no apparent distress, not acutely ill
Neck: supple. no meningeal signs. normal posterior pharynx
Heart: s1/s2 regular rate and rhythm, no murmur. equal radial
pulses. Pacemaker
HEENT: Pupils equal round reactive to light, EOMI
Lungs: no acute respiratory distress. clear bilaterally
Abdomen: normal bowel sounds. not tender. no CVAT
Neuro: alert and oriented. no focal neurological deficits cranial nerves II through XII intact
Skin: no rash
Psychiatric: well kept. interactive and cooperative
Extremities: no edema. no calf tenderness. negative homans. good distal pulses
Scores
Heart Failure Risk
Heart Failure Risk Score: Yes
History of Stroke or TIA: No
History of intubation for respiratory distress: No
Heart rate on ED arrival >/= 110: No
SaO2 <90% on arrival on room air: No
HR >/=110 during 3min walk test (or too ill to perform test): No
ECG has acute ischemic changes: No
Urea >/=12mmol/L (BUN 33.6mg/dL): No
Serum CO2>/=35mmol/L: No
Troponin I or T elevated to NM Level (0.4mg/dL): No
NT-proBNP >/=5,000ng/L (5,000pg/ml): No
HF Risk Score: 0
Admission Status: LOW RISK 2.8% Consider discharge to home with f/u visit to PCP/[facility]
Course
Orders/Labs/Results
Orders:
Orders
06/01/24 10:47
Electrocardiogram (*1) Urgent
Reason for Study: Palpitations
EKG- Treatment ONCE
06/01/24 10:55
Interrogate Pacemaker- Treatment ONCE
Ondansetron Injectable [Zofran] 4 mg IV NOW STA
06/01/24 10:56
CR Chest - 2 Views Urgent
Comment:
Reason For Exam: short of breath
06/01/24 11:18
CMP [Comprehensive Metabolic Panel] Urgent
Complete Blood Count/With Diff Urgent
NT-proBNP Urgent
Troponin I Urgent
06/01/24 12:54
COVID-19 Antigen Urgent
Source: Nasal Swab
Influenza A+B Rapid Molecular Urgent
JANAE Source: Nasal Swab
Specimen Description:
06/01/24 13:44
Ipratropium/Albuterol Sulfate [Duoneb] 3 ml INH R NOW STA
Abnormal Lab Results
06/01/24
11:18
WBC 2.5 L 10^3/uL
(4.8-10.8)
RBC 4.23 L 10^6/uL
(4.70-6.10)
Hgb 10.8 L g/dL
(13.0-18.0)
Hct 34.7 L %
(39.0-52.0)
MCH 25.5 L pg
(27.0-31.0)
MCHC 31.1 L g/dL
(33.0-37.0)
RDW 16.8 H %
(11.5-14.5)
Absolute Neuts (auto) 1.3 L 10^3/uL
(1.4-6.5)
Absolute Lymphs (auto) 1.0 L 10^3/uL
(1.2-3.4)
Monocytes % 10.2 H %
(1.7-9.3)
Creatinine 1.8 H mg/dL
(0.7-1.3)
Glucose 118 H mg/dl
(70-99)
Calcium 8.2 L mg/dl
(8.4-10.2)
06/01/24 11:18
06/01/24 11:18
Vital Signs
Initial and Last Documented VS:
Initial Vital Signs
Temp Pulse Resp BP Pulse Ox
98.5 F 71 16 123/88 100
06/01/24 10:48 06/01/24 10:48 06/01/24 10:48 06/01/24 10:48 06/01/24 10:48
Last Documented Vital Signs
Temp Pulse Resp BP Pulse Ox
98.5 F 71 16 123/88 100
06/01/24 10:48 06/01/24 10:48 06/01/24 10:48 06/01/24 10:48 06/01/24 10:48
MDM/Problems Addressed
Differential Diagnosis Includes:
COPD exacerbation, CHF exacerbation
MDM/Problems Addressed:
63-year-old male with shortness of breath, likely due to possible underlying COPD versus CHF. Desaturates with ambulation.
Chronic conditions affecting care: Cardiomyopathy and Arrhythmia
Acute Exacerbation and/or Progression of Chronic Illness: Cardiomyopathy and Arrhythmia
*Radiology
Radiology exam reviewed: radiology read reviewed (Chest x-ray shows cardiomegaly)
*Pulse Oximetry
Patient hypoxic: no
*EKG
Interpreted by ED Provider?: Yes
EKG Intrepretation Date: 06/01/24
EKG Intrepretation Time: 10:49
Interpretation: abnormal
Comparison EKG: changes noted
Heart Rate: 70
Rate: normal
Rhythm: ventricular paced
Austell: left axis deviation
Interval: normal interval
QRS Pattern: normal QRS
Ischemia: no ischemia
*Car Shunter Interpretation
Rate: normal
Interpretation: abnormal
Heart Rate: 70
Rhythm: ventricular paced
*Critical Care Note
Total Time (30-74mins, 75-104mins- exclusive of procedures): Not Applicable
Data Reviewed
Further Testing Considered But Not Given:
CT with IV contrast considered, but not indicated. Will anticoagulate with heparin
ED Attending Note
-
Portions of this chart may have been created with voice recognition software.� Occasional wrong word or��sound alike� substitutions may have occurred due to the inherent limitations of voice recognition software.
Discharge Plan
Departure
Patient Disposition: Admit
Date of Disposition: 06/01/24
Time of Disposition: 13:54
Admit to: Telemetry
Presentation/result/management discussed w/ accepting MD/DO: Hospitalist
Patient with high blood pressure during this ER visit?: Yes
Condition: Fair
Discharge Problem:
Acute HFrEF (heart failure with reduced ejection fraction), CKD (chronic kidney disease) stage 3, GFR 30-59 ml/min, Paroxysmal atrial fibrillation
Prescriptions:
No Action
atorvastatin [Lipitor] 80 mg Tablet
80 mg PO QPM
clonidine HCl 0.1 mg Tablet
0.1 mg PO BIDPRN PRN (Reason: anxiety)
carvedilol [Coreg] 6.25 mg Tablet
6.25 mg PO BID
cyanocobalamin (vitamin B-12) 1,000 mcg Tablet
1,000 mcg PO DAILY
buspirone 10 mg Tablet
10 mg PO BID
amiodarone 100 mg Tablet
100 mg PO DAILY
Xarelto 20 mg Tablet
20 mg PO HS
prazosin 5 mg Capsule
10 mg PO HSPRN PRN (Reason: night vázquez)
tamsulosin 0.4 mg Capsule
0.4 mg PO DAILY
furosemide [Lasix] 20 mg Tablet
20 mg PO DAILY
Jardiance 10 mg Tablet
10 mg PO DAILY
quetiapine [Seroquel] 100 mg tablet
150 mg PO HS
losartan 50 mg Tablet
50 mg PO DAILY
amlodipine [Norvasc] 10 mg Tablet
10 mg PO DAILY
metformin 1,000 mg Tablet
1,000 mg PO BID
Referrals:
UNKNOWN - PT NOT,INTERVIEWE [Family Provider] -
Interventions
Interventions:
*Risk Screen - Suicide Last Done: 06/01/24 10:48
*General Assessment Last Done: 06/01/24 10:48
*Neglect/Abuse Screening Last Done: 06/01/24 10:48
*ED COVID-19 Vaccine History Last Done: 06/01/24 10:48
ED- Cardiac Assessment Last Done: 06/01/24 10:48
Discharge Date and Time
Print Language: SOU[place] AFR[place]
[2024-06-01] MEDS: ZOFRAN 4 MG IV (11:19)
[2024-06-01 11:36] LABS: Hematocrit 34.7 % (39.0-52.0); Hemoglobin 10.8 g/dL (13.0-18.0); Mean Corp Hgb Conc. 31.1 g/dL (33.0-37.0); Mean Corpuscular Hgb 25.5 pg (27.0-31.0); Mean Platelet Volume 9.3 fL (7.4-10.4); Platelet Count 169 10^3/uL (130-400); Red Blood Cell Count 4.23 10^6/uL (4.70-6.10); Red Cell Dist. Width 16.8 % (11.5-14.5); White Blood Cell Count 2.5 10^3/uL (4.8-10.8)
[2024-06-01 11:43] LABS: ALT (SGPT) 14 U/L (0-50); AST (SGOT) 24 U/L (17-59); Albumin 3.6 g/dl (3.5-5.0); Alkaline Phosphatase 87 U/L (38-126); Blood Urea Nitrogen 20 mg/dl (9-20); Calcium 8.2 mg/dl (8.4-10.2); Carbon Dioxide 24 mmol/L (22-30); Chloride 107 mmol/L (98-107); Estimated Creatinine Clearance 54 ml/min; Glucose 118 mg/dl (70-99); Potassium 4.7 mmol/L (3.5-5.1); Sodium 139 mmol/L (135-145); Total Bilirubin 0.6 mg/dl (0.2-1.3); Total Protein 6.3 g/dl (6.3-8.2); eGFR 41.77
[2024-06-01 11:54] LABS: NT-proBNP 1840 pg/ml; Troponin I 0.013 ng/ml
[2024-06-01 12:02] LABS: % Eosinophils 1.2 % (0-6); % Immature Granulocytes 0.4 % (0-0.5); % Monocytes 10.2 % (1.7-9.3); % Neutrophils 49.2 % (42.2-75.2); Absolute Monocytes 0.3 10^3/uL (0.1-0.6); Absolute Neutrophils 1.3 10^3/uL (1.4-6.5); Nucleated Red Blood Cells % 0 % (-)
[2024-06-01 13:34] LABS: COVID-19 Antigen Negative (Negative)
--- NOTE | 2024-06-01 14:01 | HPS.HSE ---
Addendum entered and electronically signed by Efrain De Anda MD 06/01/24 17:46:
Pt seen independently of DATA PROCESSOR
Recurrent deep belching episodes
Worsening sob
Lungs holoexpiratory wheeze on left>Rt
CV irreg irreg
Ext no edema
Imp: possible aspiration episodes as causation of sob
Atrial fib
s/p PPM
P:pulm and cardio consult
VSE
resume Xarelto
potential cardioversion in near future
Original Note:
Family Physician
-
Family Physician: INTERVIEWE UNKNOWN - PT NOT
Chief Complaint
-
sob
History of Present Illness
63-year-old male with past medical history for A-fib, CHF, hypertension, hyperlipidemia, CKD, anxiety, gout, A-fib presents emergency department due to shortness of breath which is worse with exertion, orthopnea for 1 week .patient stated orthopnea
got worse for the past 3 nights .patient not able to sleep at night. He has been having palpitation for the past few days . He complained of left chest pain radiating to his neck back. Patient was taking Lasix which caused him to urinate a lot.
His blood pressure dropped and he was feeling dizzy .he is not taking Lasix since Thursday .patient is not compliance with his meds .patient denied any headache or syncope .patient started having nausea vomiting diarrhea since last night. He went to
his PCP at [facility]. he vomited at PCP office and he was also noted in A-fib, so they sent him to the ER .patient denied fever, chills .he is also complaining of abdominal pain .denies dysuria hematuria .he was noted to have bilateral lower extremities
edema for past few nights.
Patient oxygenating very well on room air. His heart rate is paced. Patient received nebs in ER. Admitted for further management
Medical History
Past Medical History
Past Medical History: Reports Other
Additional Past Medical History:
A-fib
CHF
Hypertension
Hyperlipidemia
CKD
Anxiety
Gout
A-fib
Past Surgical History: Reports None
Additional Past Surgical History:
defibrillator
Social History
Tobacco: Smoker
Alcohol: None
Drug: None
Family History
Family History: Not pertinent
Allergies / Home Medications
Allergies reflects when Allergies were last updated in [facility].
Home Medications with original date entered in [facility]
Allergy/Medication List:
Allergies
Allergy/AdvReac Type Severity Reaction Status Date / Time
No Known Drug Allergies Allergy Unknown Verified 05/10/24 15:52
Home Medications
amiodarone 100 mg tablet 100 mg PO DAILY 10/18/23
atorvastatin 80 mg tablet (Lipitor) 80 mg PO QPM 10/18/23
buspirone 10 mg tablet 10 mg PO BID 10/18/23
carvedilol 6.25 mg tablet (Coreg) 6.25 mg PO BID 10/18/23
clonidine HCl 0.1 mg tablet 0.1 mg PO BIDPRN PRN anxiety 10/18/23
cyanocobalamin (vitamin B-12) 1,000 mcg tablet 1,000 mcg PO DAILY 10/18/23
prazosin 5 mg capsule 10 mg PO HSPRN PRN night vázquez 10/18/23
rivaroxaban 20 mg tablet (Xarelto) 20 mg PO HS 10/18/23
amlodipine 10 mg tablet (Norvasc) 10 mg PO DAILY 05/10/24
empagliflozin 10 mg tablet (Jardiance) 10 mg PO DAILY 05/10/24
furosemide 20 mg tablet (Lasix) 20 mg PO DAILY 05/10/24
losartan 50 mg tablet 50 mg PO DAILY 05/10/24
metformin 1,000 mg tablet 1,000 mg PO BID 05/10/24
quetiapine 100 mg tablet (Seroquel) 150 mg PO HS 05/10/24
tamsulosin 0.4 mg capsule 0.4 mg PO DAILY 05/10/24
Review of Systems
-
Constitutional: Reports Fatigue and Chills
EENT: Reports No Symptoms
Respiratory: Reports Trouble Breathing
Cardiac: Reports No Symptoms, Chest Pain and Palpitations
Abdomen/GI: Reports No Symptoms, Nausea, Vomiting and Diarrhea
: Reports No Symptoms
Musculoskeletal: Reports No Symptoms and Edema
Skin: Reports No Symptoms
Neurological: Reports No Symptoms and Dizzy
Endocrine: Reports No Symptoms
Hematologic/Lymphatic: Reports No Symptoms
Psych: Reports No Symptoms
Physical Exam
Vital Signs
Vital Signs
Temp Pulse Resp BP Pulse Ox
98.5 F 71 16 123/88 100
06/01/24 10:48 06/01/24 10:48 06/01/24 10:48 06/01/24 10:48 06/01/24 10:48
Physical Exam
General: Well Developed, Well Nourished and No Apparent Distress
HEENT: NormoCephalic, Moist mucous membranes and Atraumatic
Respiratory: Clear
Cardiac: S1/S2 and Regular Rhythm; No Murmur or Rub
GI: Soft, Non Tender, Non Distended and Normal Bowel Sounds; No Organomegaly
Rectal: Deferred by Provider
Musculoskeletal: No Clubbing, No Cyanosis and No Edema
Skin: No Rash
Neuro: AO x 3 and Nonfocal/grossly intact
Psych: Calm
Laboratory Results
-
06/01/24 11:18
06/01/24 11:18
Laboratory Results
Total Bilirubin 0.6 mg/dl (0.2-1.3) 06/01/24 11:18
AST 24 U/L (17-59) 06/01/24 11:18
ALT 14 U/L (0-50) 06/01/24 11:18
Alkaline Phosphatase 87 U/L (38-126) 06/01/24 11:18
Troponin I 0.013 ng/ml 06/01/24 11:18
Data Reviewed
-
Diagnostic Radiology: Report Reviewed by me
Lab Data: Labs Reviewed by me
Impression/Plan
-
#sob multifactorial concern for aspiration
-COVID-negative
-Negative for influenza AMB
-BNP 1840
-Chest x-ray with cardiomegaly without associated pulmonary edema
-Nebs as needed for show reported wheezing
-obtain D dimer
-speech consulted
-VSE ordered
-pulmonology consulted
-cardiology consulted
# Leukopenia/anemia likely iron deficiency
-Obtain iron panel, B12, ferritin, TIBC
-Patient with no acute bleeding
-Continue to monitor
# CKD stage IIIb
-Creatinine 1.8
-Continue to monitor
# History of CHF
-strict I &O
-daily weight
-diuretics continued
#permanent atrial fibrillation
-EKG with paced rhythm
Continue rate control with beta-blockers
Continue antiarrhythmics with amiodarone
Continue anticoagulant with Xarelto
#Depression, anxiety, PTSD, history of polysubstance abuse
Continue Seroquel
Continue BuSpar
Continue naltrexone
#Hyperlipidemia:
Continue high-dose statins
#Diabetes mellitus:
Add insulin sliding scale
Update hemoglobin A1c at 6.5
Keep current diet
#DVT prophylaxis:
Xarelto
Full code
[2024-06-01 14:33] LABS: APTT 40.9 Sec (23.4-35.0)
[2024-06-01] MEDS: HEPARIN 8500 UNITS IV (14:39)
[2024-06-01] MEDS: HEPARIN 25000 UNITS/250 ML IV (14:40)
[2024-06-01] MEDS: DUONEB 3 ML INH (14:47)
--- NOTE | 2024-06-01 14:55 | PHANOTE ---
Addendum entered and electronically signed by Zakia Lucero [facility] 06/01/24 16:06:
[facility]
See [facility] from [facility].
Of note, patient states he does NOT take losartan and metformin that are listed [facility] list.
Home med list is now up to date.
Original Note:
med history collection note:
called [facility] to request med rec [id number]. office Will fax over.
[2024-06-01 15:31] LABS: Iron 36 ug/dl (49-181)
[2024-06-01 15:41] LABS: Percent Saturation 10 % (20-50); Total Iron Binding Capacity 338 ug/dl (261-462)
[2024-06-01 15:47] LABS: D-Dimer 0.57 ug/mlFEU (0.00-0.50)
--- NOTE | 2024-06-01 15:58 | CON.PUL ---
Consultation
Consultation Request
Date/Time Consultation Requested: 06/01
Date/Time Consultation Performed: 06/01
Reason for Consultation: Shortness of breath
Medical History
-
History of Present Illness:
History obtained from the patient and reviewing the chart. Patient is not a very good historian. Gives vague answers. 63-year-old male with history of atrial fibrillation, heart failure, chronic kidney disease who was recently discharged
05/15/2024. Patient went to the [facility] clinic today, states he felt palpitations, lightheaded. He states he did pass out although I cannot confirm this. He also has been complaining of significant belching, nausea and emesis and loose stool
since his last discharge. However on further questioning he states he has been having these GI symptoms for about 6 weeks. He also describes insomnia, night terrors, restlessness. He does not have oxygen therapy at home. He was sent to
[facility] emergency room from the [facility] where upon arrival afebrile, pulse 71, breathing at 16, blood pressure 123/88, 100% saturation. ER records suggest he desaturates with ambulation. EKG with ventricular paced rhythm. Blood
work with creatinine 1.8, white count 2.5, hemoglobin 10.8. ED records suggest clear chest exam. We are asked to help from pulmonary standpoint.
Patient continues to smoke about a pack of cigarettes every 2 to 3 days. He denies significant alcohol use
Additional history was obtained from friend which is at the bedside who lives in the same house. Friend states that patient is been deteriorating over the past 2 weeks since his last hospital stay
.
PMH: Atrial fibrillation, history of heart failure EF 30%, ICD, hypertension, hypercholesterolemia, diabetes, chronic kidney disease. Patient denies any history of pneumonia, COPD, blood clots, cancer, oxygen requirement
Past Medical History
Past Medical History: None (See above)
Past Surgical History: None ( see above)
Social History
Tobacco: Smoker (Continues to smoke a pack of cigarettes a day every 2 to 3 days. Suspected 30+ pack year.)
Alcohol: None
Drug: Other (Crack/cocaine last used 2013)
Personal: Single
Living: Alone (In a house with other roommates)
Employment: Not Employed
Family History
Family History: Other (No family history of blood clots, lung cancer)
Allergies / Home Medications
Allergies
Allergy/AdvReac Type Severity Reaction Status Date / Time
No Known Drug Allergies Allergy Unknown Verified 05/10/24 15:52
Home Medications
�Medication �Instructions �Recorded �Confirmed �Last Taken �Type
amiodarone 100 mg tablet 100 mg PO DAILY 10/18/23 05/10/24 Unknown History
buspirone 10 mg tablet 10 mg PO BID 10/18/23 05/10/24 Unknown History
carvedilol 6.25 mg tablet (Coreg) 6.25 mg PO BID 10/18/23 05/10/24 Unknown History
clonidine HCl 0.1 mg tablet 0.1 mg PO BID 10/18/23 05/10/24 Unknown History
cyanocobalamin (vitamin B-12) 1,000 mcg PO DAILY 10/18/23 06/01/24 Unknown History
1,000 mcg tablet
prazosin 5 mg capsule 10 mg PO HS 10/18/23 06/01/24 Unknown History
rivaroxaban 20 mg tablet (Xarelto) 20 mg PO HS 10/18/23 05/10/24 Unknown History
amlodipine 10 mg tablet (Norvasc) 10 mg PO DAILY 05/10/24 05/10/24 Unknown History
empagliflozin 10 mg tablet 10 mg PO DAILY 05/10/24 06/01/24 Unknown History
(Jardiance)
furosemide 20 mg tablet (Lasix) 20 mg PO DAILY 05/10/24 06/01/24 Unknown History
quetiapine 100 mg tablet (Seroquel) 100 mg PO HS 05/10/24 06/01/24 Unknown History
tamsulosin 0.4 mg capsule 0.4 mg PO DAILY 05/10/24 05/10/24 Unknown History
dextromethorphan-guaifenesin 30 1 tab PO [id number] PRN cough 06/01/24 06/01/24 05/31/24 History
mg-600 mg tablet extended
hr (Mucinex DM)
docusate sodium 100 mg tablet 100 mg PO DAILYPRN PRN constipation 06/01/24 06/01/24 Unknown History
esomeprazole magnesium 20 mg 20 mg PO DAILYPRN PRN gerd 06/01/24 06/01/24 05/31/24 History
capsule,delayed release (Nexium)
ondansetron 4 mg disintegrating 4 mg translingual Q8HPRN PRN NAUSEA 06/01/24 06/01/24 Unknown History
tablet
quetiapine 50 mg tablet 50 mg PO HS 06/01/24 06/01/24 Unknown History
Review of Systems
-
All other systems: Negative unless noted
Vitals / Labs / Diagnostic Testing
Vital Signs
Temp Pulse Resp BP Pulse Ox
98.5 F 73 22 120/84 99
06/01/24 10:48 06/01/24 15:15 06/01/24 15:15 06/01/24 11:30 06/01/24 14:03
Lab Data
06/01/24 11:18
06/01/24 11:18
Laboratory Results
06/01/24
14:15
APTT 40.9 H
Microbiology
06/01/24 12:54 Nasal Swab Influenza Types A & B (BERT) - Final
Negative for Influenza A & B, NAAT
Negative results must be combined with clinical observations
and patient history.
Nucleic Acid Amplification test (NAAT)performed on the
[employer] platform.
Diagnostic Testing:
Physical Exam
-
HEENT: Normocephalic, Anicteric and Other
Cardiovascular: S1/S2, Regular Rhythm, Murmur (n), Rub (n) and Peripheral Edema (tr)
Respiratory: Wheeze (n), Rales (n), Rhonchi (n), Non-Labored Respirations and Other (Decreased breath sounds)
GI: Soft, Non Distended (Obese) and Tender (There may be some mild midepigastric tenderness but no rebound or guarding)
Neurology: Awake, Alert, Oriented and No Motor Deficits (Moves all extremities)
Skin: Good Color
General: Comfortable
Assessment
-
63-year-old male with history of cardiomyopathy, EF 30%, atrial fibrillation, chronic kidney disease, diabetes, recent hospital stay for heart failure and norovirus infection discharged 05/15/2024, now presents with few weeks of progressive decline
in overall health, fatigue, weakness, nausea, diarrhea, GERD, lightheadedness, palpitations. Patient was seen in [facility] today and sent to [facility]. We are asked to help from a pulmonary standpoint.
Nonspecific complaints
Fatigue, insomnia, nausea, diarrhea
Reported hypoxia in the ED, not documented
Currently 99% on room air
Leukopenia
Possible heart failure (weight increased, elevated proBNP
Atrial fibrillation, on anticoagulation
Followed at the [facility]
On amiodarone
Belching, bloating, nausea
Mild acute renal insufficiency, creatinine 1.8
Conditions present prior to admission
History of cardiomyopathy, EF 30%
Pulm hypertension, PA pressure 58
Hypertension/hyperlipidemia
History of chronic kidney disease
Baseline creatinine 1.6
Suspected sleep apnea
Suspected COPD
[id number] history of smoking, ongoing
Plan/recommendations
At this time, patient with a variety complaints
Recent norovirus, heart failure hospitalization noted 2 weeks ago
Friend who is at the bedside states that patient has become more fatigued over the past 2 weeks
Salient features are clear exam, 99% on room air, normal chest x-ray with no acute findings
Moving forward
Do not suspect any active acute pulmonary process
ED records state that patient desaturated in the ER but I could not confirm this
He is presently 99% on room air
Heart rate is in the 120s (during my assessment in acute care), he is also hypertensive
Records suggest heart rate in the 70s
Cardiology following
Amiodarone continues
Patient also on anticoagulation (Xarelto)
Patient with GI symptoms as well, continue to belch during my evaluation, no emesis
Patient states the symptoms have been present for 4 to 6 weeks
Agree with PPI therapy
Not sure whether may be medication related
Defer additional workup to primary service
Patient with ongoing tobacco use
Tobacco cessation will be discussed
I suspect he has COPD but workup at this time can be held off as we focus on his cardiac status
Reviewed with patient and friend at bedside
Reviewed with nursing
Will follow
--- NOTE | 2024-06-01 16:01 | CON.CAR ---
Consultation
Consultation Request
Date/Time Consultation Requested: 06/01/24 @ 14:34
Date/Time Consultation Performed: 06/01/24 @ 15:44
Requesting Provider: SOLO Simpson
Performing Provider: Dru Owens MD
Reason for Consultation: SOB
Medical History
-
Chief Complaint: Shortness of breath
History of Present Illness:
Ketan Juárez is a 63-year-old male (follows at the [facility]), with heart failure with reduced ejection fraction (30-35%), atrial fibrillation (type unknown, on rivaroxaban), CKD, NIDDM, hypertension, dyslipidemia, current smoker, and depression who
presented to the emergency department with a chief complaint of shortness of breath. He was recently hospitalized at [facility] from 05/10-05/15 for heart failure exacerbation that was complicated by norovirus infection. During that
hospitalization he was found to have a moderately reduced ejection fraction (30-35%). Patient is not a great historian but HFrEF was thought to be preexistent given his home medications and presence of an ICD. He underwent diuresis and discharge
weight was 103.7 kg. Also during that hospitalization, he had a device interrogation which showed persistent atrial fibrillation ongoing since mid March. He did not undergo cardioversion due to norovirus and was discharged in rate controlled
atrial fibrillation and on Lasix 20 mg daily. He was doing okay initially but then started experiencing worsening orthopnea and abdominal bloating. His PCP increased his Lasix to 40 mg daily on Thursday but he got very dizzy with this. This is also
on the background of bad reflux symptoms which have not been ongoing for a few months.
Past Medical History
Past Medical History: Arrhythmias (Atrial fibrillation), CHF (HFrEF), HTN, Hypercholesterolemia, NIDDM and Renal Failure
Past Surgical History: Orthopedic
Social History
Tobacco: Smoker
Alcohol: None
Drug: None and Former User (Crack/cocaine, last used 2013)
Family History
Family History: Reviewed & Not Pertinent
Allergies / Home Medications
Allergy/AdvReac Type Severity Reaction Status Date / Time
No Known Drug Allergies Allergy Unknown Verified 05/10/24 15:52
�Medication �Instructions �Recorded �Confirmed �Type
amiodarone 100 mg tablet 100 mg PO DAILY 10/18/23 05/10/24 History
buspirone 10 mg tablet 10 mg PO BID 10/18/23 05/10/24 History
carvedilol 6.25 mg tablet (Coreg) 6.25 mg PO BID 10/18/23 05/10/24 History
clonidine HCl 0.1 mg tablet 0.1 mg PO BID 10/18/23 05/10/24 History
cyanocobalamin (vitamin B-12) 1,000 mcg PO DAILY 10/18/23 06/01/24 History
1,000 mcg tablet
prazosin 5 mg capsule 10 mg PO HS 10/18/23 06/01/24 History
rivaroxaban 20 mg tablet (Xarelto) 20 mg PO HS 10/18/23 05/10/24 History
amlodipine 10 mg tablet (Norvasc) 10 mg PO DAILY 05/10/24 05/10/24 History
empagliflozin 10 mg tablet 10 mg PO DAILY 05/10/24 06/01/24 History
(Jardiance)
furosemide 20 mg tablet (Lasix) 20 mg PO DAILY 05/10/24 06/01/24 History
quetiapine 100 mg tablet (Seroquel) 100 mg PO HS 05/10/24 06/01/24 History
tamsulosin 0.4 mg capsule 0.4 mg PO DAILY 05/10/24 05/10/24 History
dextromethorphan-guaifenesin 30 1 tab PO [id number] PRN cough 06/01/24 06/01/24 History
mg-600 mg tablet extended
[id number] hr (Mucinex DM)
docusate sodium 100 mg tablet 100 mg PO DAILYPRN PRN constipation 06/01/24 06/01/24 History
esomeprazole magnesium 20 mg 20 mg PO DAILYPRN PRN gerd 06/01/24 06/01/24 History
capsule,delayed release (Nexium)
ondansetron 4 mg disintegrating 4 mg translingual Q8HPRN PRN NAUSEA 06/01/24 06/01/24 History
tablet
quetiapine 50 mg tablet 50 mg PO HS 06/01/24 06/01/24 History
Review of Systems
-
All other systems: Negative unless noted
Physical Exam
Vital Signs
Temp Pulse Resp BP Pulse Ox
98.5 F 73 22 120/84 99
06/01/24 10:48 06/01/24 15:15 06/01/24 15:15 06/01/24 11:30 06/01/24 14:03
Lab Results
06/01/24 11:18
06/01/24 11:18
Troponin I 0.013 ng/ml 06/01/24 11:18
Eki-H-Kraoqubxbwb Pept 1840 pg/ml 06/01/24 11:18
Physical Exam
General: Well Developed, Well Nourished and No Apparent Distress
Respiratory: Crackles and Non Labored Respirations; Negative Accessory Resp Muscle Use
Cardiac: S1/S2, Irregular Rhythm and Murmur; Negative Peripheral Edema
GI: Soft, Non Tender and Distended
Neuro: AO x 3
Impression / Plan
-
Ketan Juárez is a 63-year-old male (follows at the [facility]), with heart failure with reduced ejection fraction (30-35%), atrial fibrillation (type unknown, on rivaroxaban), CKD, NIDDM, hypertension, dyslipidemia, current smoker, and depression who
presented to the emergency department with a chief complaint of shortness of breath, following recent hospitalization for heart failure exacerbation.
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
Heart failure with reduced ejection fraction (EF 30-35%), acute on chronic
-Exacerbation may be tachycardia mediated as he has been in atrial fibrillation since 03/2024
-Echo (05/10/24) shows LVEF 30-35% with global hypokinesis, stage III DD, moderate MR, moderate to severe TR with PASP 58 mmHg
-wt is up since discharge on 05/15, BNP 1840
-Lasix 40 mg IV twice daily
-Monitor daily weight, I/O, and BMP with diuresis. Dry weight 103-104 kg
-GDMT: Continue carvedilol 6.25 mg twice daily and dapagliflozin 10 mg daily. Hold Losartan for STERLING, resume as tolerated.
Atrial fibrillation, persistent
-Currently rate controlled
-Device interrogation (05/13/24): followed at [facility]; leads normal, Ap 51% Vpaced 10%, AF persistent since March
-Oral Anticoagulation: Xarelto 20 mg every evening, appropriate dosing as CrCl >50
-[id number]: Score at least 3 (Heart failure, DM, HTN)
-Will plan for KAILEY/DCCV tomorrow. He has missed doses of Xarelto
-Continue amiodarone 100 mg daily
Hypertension
-Continue GDMT as above
-Continue amlodipine 10 mg daily. Goal will be to ultimately transition this to additional GDMT once kidney function improves
Belching/bloating
-Suspect he has GERD and this also may be contributing to his nightly symptoms
-Start pantoprazole
STERLING on CKD
-Baseline creatinine 1.6. 1.8 on admission
-Hold losartan
Data Reviewed
-
EKG: Tracing Personally Visualized and interpreted
Radiology: Image Personally Visualized and interpreted and Discussed with Patient
Medical Tests (Nuc Med, Echo etc): Report Reviewed by me, Discussed with Physician and Discussed with Patient
Labs: Labs Reviewed by me, Discussed with Physician and Discussed with Patient
Old Records: Reviewed
[2024-06-01 16:16] LABS: Ferritin 62.2 ng/ml (17.9-464.0)
--- NOTE | 2024-06-01 16:17 | PTOTSP ---
Dysphagia Evaluation
Patient presents with signs concerning for oral, pharyngeal and possible esophageal dysphagia. He reported 6 months of frequent eructation, gagging, and dry heaving after eating/drinking, with subsequent pain/difficulty swallowing.
Recommendations:
1. IDDSI Level 4 Puree, Thin Liquids
2. Medications: as best tolerated
3. Strategies: upright to 90 degrees, small single sips/bites, slow rate, remain upright to 30 degrees after eating/drinking
4. Gastroenterology consult
5. Dysphagia tx f/u at the acute care level
[2024-06-01 16:30] LABS: Vitamin B12 347 pg/ml (239-931)
[2024-06-01] MEDS: LIPITOR 80 MG PO (17:17)
[2024-06-01] MEDS: ATIVAN 0.5 MG PO (17:17)
[2024-06-01] MEDS: LASIX 40 MG IV (17:18)
[2024-06-01 17:29] LABS: Glucose - Point of Care 136 mg/dl (70-99)
[2024-06-01] MEDS: COREG 6.25 MG PO (19:41)
[2024-06-01] MEDS: BUSPAR 10 MG PO (19:41)
[2024-06-01] MEDS: PROTONIX 40 MG PO (20:31)
[2024-06-01] MEDS: MYLICON 80 MG PO (20:31)
[2024-06-01] MEDS: TYLENOL 650 MG PO (20:32)
[2024-06-01] MEDS: SEROQUEL 150 MG PO (21:36)
[2024-06-01] MEDS: CATAPRES 0.1 MG PO (21:37)
[2024-06-01] MEDS: XARELTO 20 MG PO (21:37)
[2024-06-01 22:03] LABS: Glucose - Point of Care 115 mg/dl (70-99)
[2024-06-02 03:00] VITALS: BP 119/74
[2024-06-02 05:56] VITALS: BMI 31.9
[2024-06-02 06:04] LABS: Glucose - Point of Care 118 mg/dl (70-99)
[2024-06-02 07:45] VITALS: BP 156/100
[2024-06-02] MEDS: PACERONE 100 MG PO (07:58)
[2024-06-02] MEDS: FLOMAX 0.4 MG PO (07:59)
[2024-06-02] MEDS: LASIX 40 MG IV (07:59)
[2024-06-02] MEDS: FARXIGA 10 MG PO (07:59)
[2024-06-02] MEDS: BUSPAR 10 MG PO ×2 (07:59→20:59)
[2024-06-02] MEDS: NORVASC 10 MG PO (07:59)
[2024-06-02] MEDS: COREG 6.25 MG PO ×2 (07:59→21:00)
[2024-06-02 08:11] LABS: Hematocrit 34.8 % (39.0-52.0); Hemoglobin 10.9 g/dL (13.0-18.0); Mean Corp Hgb Conc. 31.3 g/dL (33.0-37.0); Mean Corpuscular Hgb 25.2 pg (27.0-31.0); Mean Corpuscular Volume 80.6 fL (80.0-94.0); Mean Platelet Volume 9.2 fL (7.4-10.4); Platelet Count 181 10^3/uL (130-400); Red Blood Cell Count 4.32 10^6/uL (4.70-6.10); Red Cell Dist. Width 16.7 % (11.5-14.5); White Blood Cell Count 3.1 10^3/uL (4.8-10.8)
--- NOTE | 2024-06-02 08:39 | CON.GI ---
Addendum entered and electronically signed by Kamron Anthony MD 06/02/24 10:46:
Patient seen and examined, agree with nurse practitioner. Patient is a 63-year-old male with extensive past medical history as noted who presents with shortness of breath and chest pain. He was seen by cardiology, thought to have worsening heart
failure symptoms related to A-fib. He also complains of belching, nausea and intermittent diarrhea. He states that he is had early satiety symptoms and belching dating back about 6 months with started gradually but has been increasing recently.
He had norovirus last month and felt that the symptoms are worse since then. He has no dysphagia or odynophagia. He has rare regurgitation. Denies any melena or hematochezia. He had an EGD and colonoscopy 5 years ago in [place]. On exam he has
no significant tenderness.
1. Belching: With symptoms of early satiety, likely multifactorial, though likely not related to his current shortness of breath which is likely more cardiac related. He may have some component of delayed gastric emptying, likely worsened after
norovirus. At this point we will continue supportive care, await abdominal x-ray given abdominal distention though no signs of significant ileus on exam now. Will start PPI daily. He is planned for cardioversion. Pending his cardiac status and
symptoms may consider endoscopy in the future.
Addendum entered and electronically signed by SOLO Hollingsworth 06/02/24 09:52:
Pt is also for VSE eval with speech
Original Note:
Consultation
-
Date/Time Consultation Requested: 06/01/24 1616
Date/Time Consultation Performed: 06/02/24 1135
Requesting Provider: SOLO Rm
Performing Provider: SOLO Saenz, Jonny Anthony MD
Reason for Consultation: belching, nausea, abdominal pain, diarrhea
Medical History
Chief Complaint / HPI
History of Present Illness:
Pt is a 63yo retired with hx afib on Xarelto, CHF, AICD, HTN, hyperlipidemia, CKD, NIDDM, anxiety, PTSD, gout, tobacco abuse presents with multiple complaints with shortness of breath worse with exertion, palpitation with chest pain to
back. he also had complaints of nausea, abdominal pain,belching, diarrhea, and lightheadedness on arrival. He was noted with recent norovirus(+ 05/12/24) and heart failure admission 2 weeks ago. On admission concern for multi factorial process.
He has been seen by pulmonary with no suspected pulm process and cardiology with concern for acute on chronic heart failure exacerbated by Afib since March with tachycardia. There was plan for KAILEY/CV but noted back in NSR. Asked to see for GI
complaints of, belching, nausea, abdominal pain, and diarrhea.
At this time pt admits to some sore throat. He has has ongoing issues with belching worse when he is short of breath. He also admits to nausea but also states some improvement today. He does have some intermittent abdominal pain that is worse
with eating. He also admits to recent diarrhea with some incontinence of stools. No rectal bleeding. No prior EGD and did have colonoscopy about 5 years ago at [facility] [place] recalls as normal. Pt has been seen by speech therapy and given
IDDS 4 diet and recommended GI evaluation. + NSAID use several times per week.
Past Medical History
Past Medical History: Arrhythmias (afib), CHF, HTN, Hypercholesterolemia, NIDDM, Renal Failure, Psychiatric (anxiety, PTSD) and Other (gout )
Past Surgical History: Cardiac (AICD)
Social History
Tobacco: Smoker
Alcohol: Other (quit 2 years ago )
Drug: None
Living: With Roomate
Employment: Retired (but still works at [employer] )
Family History
Family History: Other (no family hx colon CA or polyps)
Allergies / Home Medications
Allergy/AdvReac Type Severity Reaction Status Date / Time
No Known Drug Allergies Allergy Unknown Verified 05/10/24 15:52
�Medication �Instructions �Recorded
amiodarone 100 mg tablet 100 mg PO DAILY 10/18/23
buspirone 10 mg tablet 10 mg PO BID 10/18/23
carvedilol 6.25 mg tablet (Coreg) 6.25 mg PO BID 10/18/23
clonidine HCl 0.1 mg tablet 0.1 mg PO BID 10/18/23
cyanocobalamin (vitamin B-12) 1,000 mcg PO DAILY 10/18/23
1,000 mcg tablet
prazosin 5 mg capsule 10 mg PO HS 10/18/23
rivaroxaban 20 mg tablet (Xarelto) 20 mg PO HS 10/18/23
amlodipine 10 mg tablet (Norvasc) 10 mg PO DAILY 05/10/24
empagliflozin 10 mg tablet 10 mg PO DAILY 05/10/24
(Jardiance)
furosemide 20 mg tablet (Lasix) 40 mg PO DAILY 05/10/24
quetiapine 100 mg tablet (Seroquel) 100 mg PO HS 05/10/24
tamsulosin 0.4 mg capsule 0.4 mg PO DAILY 05/10/24
atorvastatin 80 mg tablet 80 mg PO DAILY 06/01/24
dextromethorphan-guaifenesin 30 1 tab PO [id number] PRN cough 06/01/24
mg-600 mg tablet extended
[id number] hr (Mucinex DM)
docusate sodium 100 mg tablet 100 mg PO DAILYPRN PRN constipation 06/01/24
esomeprazole magnesium 20 mg 20 mg PO DAILYPRN PRN gerd 06/01/24
capsule,delayed release (Nexium)
naltrexone 50 mg tablet 50 mg PO DAILY 06/01/24
ondansetron 4 mg disintegrating 4 mg translingual [id number] PRN NAUSEA 06/01/24
tablet
quetiapine 50 mg tablet 50 mg PO HS 06/01/24
Review of Systems
-
History Source: Patient
Constitutional: Reports Weight Gain (few lbs )
EENT: Reports No Symptoms
Respiratory: Reports Trouble Breathing
Cardiac: Reports Chest Pain
Abdomen/GI: Reports Abdominal Pain, Nausea, Diarrhea and Other (belching )
: Reports No Symptoms
Musculoskeletal: Reports No Symptoms
Skin: Reports No Symptoms
Neurological: Reports Weakness
Endocrine: Reports No Symptoms
Hematologic/Lymphatic: Reports No Symptoms
Vital Signs
Temp Pulse Resp BP Pulse Ox
97.9 F 71 18 156/100 98
06/02/24 07:45 06/02/24 07:58 06/02/24 07:45 06/02/24 07:59 06/02/24 07:45
Physical Exam
Exam
General: Other (pt noted with some belching and drifting off in exam)
HEENT: Normocephalic and Anicteric
Respiratory: Clear
Cardiac: Regular Rhythm
GI: Soft, Non Distended and Tender (minimal epigastric tenderness )
Musculoskeletal: No Clubbing and No Cyanosis
Skin: Warm and Dry
Neuro: Other (awakens to voice and drifts off in conversation)
Psych: Calm
Results
WBC 3.1 10^3/uL (4.8-10.8) L 06/02/24 07:47
Hgb 10.9 g/dL (13.0-18.0) L 06/02/24 07:47
Hct 34.8 % (39.0-52.0) L 06/02/24 07:47
MCV 80.6 fL (80.0-94.0) 06/02/24 07:47
Plt Count 181 10^3/uL (130-400) 06/02/24 07:47
Absolute Neuts (auto) 1.3 10^3/uL (1.4-6.5) L 06/01/24 11:18
APTT Cancelled 06/01/24 20:45
Sodium 139 mmol/L (135-145) 06/01/24 11:18
Potassium 4.7 mmol/L (3.5-5.1) 06/01/24 11:18
Chloride 107 mmol/L (98-107) 06/01/24 11:18
Carbon Dioxide 24 mmol/L (22-30) 06/01/24 11:18
BUN 20 mg/dl (9-20) 06/01/24 11:18
Creatinine 1.8 mg/dL (0.7-1.3) H 06/01/24 11:18
Calcium 8.2 mg/dl (8.4-10.2) L 06/01/24 11:18
Total Bilirubin 0.6 mg/dl (0.2-1.3) 06/01/24 11:18
AST 24 U/L (17-59) 06/01/24 11:18
ALT 14 U/L (0-50) 06/01/24 11:18
Alkaline Phosphatase 87 U/L (38-126) 06/01/24 11:18
Diagnostic Image Results:
05/12/24 ABD X ray
IMPRESSION: Mild gaseous distention of the stomach.
No significantly dilated air-filled loops of small or large bowel are identified.
06/01/24 CXR
Cardiomegaly without associated pulmonary edema
10/18/23 CT Abd/pelvis W Iv Cont
Approximate 3.2 cm splenic lesion with imaging characteristics most likely representing a benign hemangioma. Other prior outside studies for confirmation?
Symmetric bilateral renal excretion. Small upper pole simple left renal cyst. Several additional bilateral subcentimeter low-attenuation renal lesions too small to characterize.
Sigmoid diverticulosis.
Borderline hepatomegaly.
Suspected coronary artery calcifications.
Prior GI Procedures:
EGD: none
Colonoscopy: 5 years ago [facility] recalls as normal
Assessment / Plan
-
Pt is a 63yo retired with hx afib on Xarelto, CHF, AICD, HTN, hyperlipidemia, CKD, NIDDM, anxiety, PTSD, gout, tobacco abuse presents with multiple complaints with shortness of breath worse with exertion, palpitation with chest pain to
back. he also had complaints of nausea, abdominal pain,belching, diarrhea, and lightheadedness on arrival. He was noted with recent norovirus(+ 05/12/24) and heart failure admission 2 weeks ago. On admission concern for multi factorial process.
He has been seen by pulmonary with no suspected pulm process and cardiology with concern for acute on chronic heart failure exacerbated by Afib since March with tachycardia. There was plan for KAILEY/CV but noted back in NSR. Asked to see for GI
complaints of, belching, nausea, abdominal pain, and diarrhea. No prior EGD and did have colonoscopy about 5 years ago at [facility] [place] recalls as normal. Pt has been seen by speech therapy and given IDDS 4 diet and recommended GI
evaluation.+ NSAID use several times per week.
-eructation
-Abd X ray with gaseous distention of stomach in April
-nausea now improving
-abdominal pain
-diarrhea
-HFrEF with acute on chronic on admission
-afib on Xarelto
-NSAID use
-anemia with some iron deficiency
-recent norovirus
-altered mental status with some drifting off in conversation
other med problems:
-AICD
-HTN
-hyperlipidemia
-NIDDM
-anxiety/PTSD
-gout
-tobacco abuse
-ETOH abuse quit 2 years ago
PLAN:
etiology of symptoms unclear with eructation noted gastric distention abd film in April -- ? related to norovirus vs air swallowing with CHF and shortness of breath
pt with some diarrhea- no stools since admission
check abdominal film for stool burden and follow up on gastric distention
if further diarrhea during admission check stool studies
pt does take frequent NSAIDs- will start PPI daily
can consider EGD when optimized - IP vs OP with mild JENNIFER and abdominal pain complaints with hx NSAID use to rule out PUD
trend hbg some slight drop since April
pt repots some nausea but states now improving
cards following for need for cardioversion during admission
s/p speech eval as noted
-
-
-
Thank you for consultation and allowing me to participate in the patient's care. Please call the construction producer GI physician during the after hours with any questions or concerns.
[2024-06-02 08:50] LABS: Blood Urea Nitrogen 20 mg/dl (9-20); Calcium 8.4 mg/dl (8.4-10.2); Carbon Dioxide 24 mmol/L (22-30); Chloride 109 mmol/L (98-107); Estimated Creatinine Clearance 61 ml/min; Glucose 99 mg/dl (70-99); Potassium 4.4 mmol/L (3.5-5.1); Sodium 140 mmol/L (135-145); Total Cholesterol 75 mg/dl (50-199); Triglyceride 102 mg/dl (10-149); Very Low Density Lipoprotein 20 mg/dl (0-30); eGFR 48.11
[2024-06-02 09:19] LABS: TSH Reflex To Free T4 1.49 uIU/ml (0.47-4.68)
[2024-06-02] MEDS: PROTONIX 40 MG PO (10:10)
--- NOTE | 2024-06-02 10:50 | CM ---
Patient seen this morning.
Reluctantly answered questions for IA.
Patient for testing this am.
Patient has 2 roommates.
Independent prior to admission without assistive devices.
Drives.
No hx VN
Insurance thru the [place]
Patient PCP is at the [facility]
Pharmacy: [facility]
Plan: home no needs anticipated
[2024-06-02 11:45] LABS: HDL Cholesterol 28 mg/dl; LDL Cholesterol, Calculated 27 mg/dl
[2024-06-02 13:06] LABS: Glucose - Point of Care 113 mg/dl (70-99)
[2024-06-02 13:08] VITALS: BP 143/90
--- NOTE | 2024-06-02 13:25 | W.PN.CD ---
Today's Communication / Plan
-
Increase lasix to 80 mg bid
follow Cr K> 4 Mag > 2
Cont Xarelto
Impression / Plan
-
Ketan Juárez is a 63-year-old male (follows at the [facility]), with heart failure with reduced ejection fraction (30-35%), atrial fibrillation (type unknown, on rivaroxaban), CKD, NIDDM, hypertension, dyslipidemia, current smoker, and depression who
presented to the emergency department with a chief complaint of shortness of breath, following recent hospitalization for heart failure exacerbation.
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
Heart failure with reduced ejection fraction (EF 30-35%), acute on chronic
-Exacerbation from not taking meds and dietary indiscretion
-Echo (05/10/24) shows LVEF 30-35% with global hypokinesis, stage III DD, moderate MR, moderate to severe TR with PASP 58 mmHg
-wt is up since discharge on 05/15, BNP 1840
-Lasix 80 mg IV twice daily
-Monitor daily weight, I/O, and BMP with diuresis. Dry weight 103-104 kg
-GDMT: Continue carvedilol 6.25 mg twice daily and dapagliflozin 10 mg daily. Hold Losartan for STERLING, resume as tolerated.
Atrial fibrillation, persistent
-Currently rate controlled
-Device interrogation (05/13/24): followed at NH; leads normal, Ap 51% Vpaced 10%, AF persistent since March
-Oral Anticoagulation: Xarelto 20 mg every evening, appropriate dosing as CrCl >50
-[id number]: Score at least 3 (Heart failure, DM, HTN)
-KAILEY SHOWED GEOFFREY THROMBUS
-Continue amiodarone 100 mg daily
Hypertension
-Continue GDMT as above
-Continue amlodipine 10 mg daily. Goal will be to ultimately transition this to additional GDMT once kidney function improves
Belching/bloating
-Suspect he has GERD and this also may be contributing to his nightly symptoms
-Start pantoprazole
STERLING on CKD
-Baseline creatinine 1.6. 1.8 on admission
-Hold losartan
Subjective: Upset that he is still here, but discussed need for diuresis
Physical Exam
Vital Signs/Labs
Vital Signs
Temp Pulse Resp BP Pulse Ox
98.3 F 71 22 143/90 99
06/02/24 13:08 06/02/24 13:08 06/02/24 13:08 06/02/24 13:08 06/02/24 13:08
06/01/24 06/02/24 06/03/24
06:59 06:59 06:59
Actual Weight 241 lb 9 oz
06/02/24 07:47
06/02/24 07:47
APTT Cancelled 06/01/24 20:45
Triglycerides 102 mg/dl (10-149) 06/02/24 07:47
LDL Cholesterol, Calc 27 mg/dl 06/02/24 07:47
VLDL Cholesterol, Calc 20 mg/dl (0-30) 06/02/24 07:47
HDL Cholesterol 28 mg/dl 06/02/24 07:47
06/01/24
11:18
[id number] Pept 1840
LAB Results
06/01/24
11:18
Troponin I 0.013
Physical Exam
Constitutional: No acute distress and Comfortable
Cardiovascular: Rhythm/rate is irregular
Respiratory: Respiratory effort normal and Lungs clear to auscul.
GI: Soft
Neuro/Psych: AO x 3
Data Reviewed
-
Date of Service: June 02, 2024
EKG: Tracing Personally Visualized and interpreted (af)
Echo: Report Reviewed by me
Labs: Labs Reviewed by me
--- NOTE | 2024-06-02 14:09 | W.PN.PUL3 ---
Today's Communication / Plan
-
patient with a clear chest exam, subjectively improved
Diuresis seems to have helped symptoms
Would benefit from outpatient primary follow-up with full PFTs
Hospital outpatient sleep apnea workup
Follow-up information left in chart
We will sign off. Please call with questions
Assessment
-
63-year-old male with history of cardiomyopathy, EF 30%, atrial fibrillation, chronic kidney disease, diabetes, recent hospital stay for heart failure and norovirus infection discharged 05/15/2024, now presents with few weeks of progressive decline
in overall health, fatigue, weakness, nausea, diarrhea, GERD, lightheadedness, palpitations. Patient was seen in [facility] today and sent to [facility]. We are asked to help from a pulmonary standpoint.
Nonspecific complaints
Fatigue, insomnia, nausea, diarrhea
Reported hypoxia in the ED, not documented
Currently 99% on room air
Leukopenia
Possible heart failure (weight increased, elevated proBNP
Atrial fibrillation, on anticoagulation
Followed at the [place]
On amiodarone
Belching, bloating, nausea
Mild acute renal insufficiency, creatinine 1.8
Conditions present prior to admission
History of cardiomyopathy, EF 30%
Pulm hypertension, PA pressure 58
Hypertension/hyperlipidemia
History of chronic kidney disease
Baseline creatinine 1.6
Suspected sleep apnea
Suspected COPD
12-kega-xhld history of smoking, ongoing
Plan/recommendations
At this time, patient Appears to be improved objectively and subjectively
Negative fluid status noted
Recent norovirus, heart failure hospitalization noted 2 weeks ago
Friend who is at the bedside states that patient has become more fatigued over the past 2 weeks
Chest exam is clear
Salient features are clear exam, 99% on room air, normal chest x-ray with no acute findings
Moving forward
Do not suspect any active acute pulmonary process
ED records state that patient desaturated in the ER but I could not confirm this
He is presently 99% on room air
Heart rate is in the 120s (during my assessment in acute care), he is also hypertensive
Records suggest heart rate in the 70s
Cardiology following
Amiodarone continues
Patient also on anticoagulation (Xarelto)
Patient continues to be diuresed
Patient with GI symptoms as well, continue to belch during my evaluation, no emesis
Patient states the symptoms have been present for 4 to 6 weeks
Agree with PPI therapy
Not sure whether may be medication related
GI following
Patient with ongoing tobacco use
Tobacco cessation will be discussed
I suspect he has COPD but workup at this time can be held off as we focus on his cardiac status
Would recommend outpatient primary follow-up. Information left in chart
We will sign off. Please call with questions
Subjective Data
-
Date of Service:
Date of Service: June 02, 2024
Subjective:
Patient feels her breathing has improved. Currently on room air. Still with mild belching. Denies chest pain, cough, abdominal pain
Objective Data
Data Reviewed
Vital Signs / I&O / Oxygen:
Vital Signs
Temp Pulse Resp BP Pulse Ox
98.3 F 71 22 143/90 99
06/02/24 13:08 06/02/24 13:08 06/02/24 13:08 06/02/24 13:08 06/02/24 13:08
SaO2 99
Physical Exam
General: Comfortable and Other ( large neck)
HEENT: Normocephalic and Anicteric
Cardiovascular: S1-S2, Regular Rhythm and Murmur ( light)
Respiratory: Wheeze (n), Crackles (n), Rhonchi (n) and Non-Labored Respirations
GI: Soft, Non Distended and Non Tender
Neurology: Awake, Alert and No Motor Deficits
Skin: Jaundice (n) and Rash (n)
Labs/Micro/Reports
Lab Data
06/02/24 07:47
06/02/24 07:47
Laboratory Results
06/01/24 06/01/24
14:15 20:45
APTT 40.9 H Cancelled
Microbiology
06/01/24 12:54 Nasal Swab Influenza Types A & B (BERT) - Final
Negative for Influenza A & B, NAAT
Negative results must be combined with clinical observations
and patient history.
Nucleic Acid Amplification test (NAAT)performed on the
[employer] platform.
[2024-06-02 15:16] VITALS: BP 129/74
--- NOTE | 2024-06-02 16:20 | W.PN.HOSP.TC ---
Today's Communication/Plan
-
continue Xarelto
Lasix 80 mg IV q12h
Assessment / Plan
Assessment / Plan
#sob multifactorial concern for aspiration
pt went into a severe coughing spasm during my visit, which sounded like aspiration
-COVID-negative
-Negative for influenza AMB
-BNP 1840
-Chest x-ray with cardiomegaly without associated pulmonary edema
-Nebs as needed for show reported wheezing
-obtain D dimer
-speech consulted
-VSE ordered
-pulmonology consulted
-cardiology consulted
GI consulted
# Leukopenia/anemia likely iron deficiency
-Fe sat 10% with Ferritin 62.2
-Patient with no acute bleeding
-Continue to monitor
# CKD stage IIIb
-Creatinine 1.8
-Continue to monitor
# History of CHF
-strict I &O
-daily weight
-diuretics continued
#permanent atrial fibrillation
-EKG with paced rhythm
Continue rate control with beta-blockers
Continue antiarrhythmics with amiodarone
Continue anticoagulant with Xarelto
Echo: 05/10/24 Moderately reduced left ventricular systolic function. Global hypokinesis with
abnormal (paradoxical) septal motion consistent with RV pacemaker. Left
ventricular ejection fraction is 30-35% by visual assessment.
Stage III diastolic dysfunction suggestive of restrictive filling pattern and
increased filling pressures.
Moderate mitral regurgitation.
Moderate to severe tricuspid regurgitation with moderate pulmonary
hypertension.
No prior study available for comparison.
KAILEY 06/02: Normal left ventricular chamber size with moderately reduced left ventricular
systolic function. Ejection fraction 25 to 30%. Global hypokinesis. Mild
left ventricular hypertrophy.
Mildly enlarged right ventricle with reduced right ventricular systolic
function.
ICD wire seen in the right heart
Spontaneous echo contrast noted in left atrial appendage with evidence of left
atrial appendage thrombus noted near the apex of the appendage.
Moderate mitral regurgitation with no systolic flow reversal in the right or
left upper pulm veins.
Moderate to severe tricuspid regurgitation.
Compared to the previous study, which was reviewed, left atrial appendage
thrombus is noted.
Due to left atrial appendage findings, cardioversion was not performed.
#Depression, anxiety, PTSD, history of polysubstance abuse
Continue Seroquel
Continue BuSpar
Continue naltrexone
#Hyperlipidemia:
Continue high-dose statins
#Diabetes mellitus:
Add insulin sliding scale
Update hemoglobin A1c at 6.5
current diet pt on Pureed due to concern for aspiration. Pt is upset about diet, wants it changed. Nurse requested to contact regarding this issue
#DVT prophylaxis:
Xarelto
Full code
Anticipated Discharge: > 48 hours
Subjective/Interval History
-
Date of Service: June 02, 2024
episode of severe coughing spasm earlier today
Objective Data
-
Labs:
Laboratory Results
06/02/24
07:47
WBC 3.1 L
Hgb 10.9 L
Hct 34.8 L
Plt Count 181
Sodium 140
Potassium 4.4
Chloride 109 H
Carbon Dioxide 24
BUN 20
Creatinine 1.6 H
Glucose 99
Calcium 8.4
Vital Signs:
Vital Signs
Temp Pulse Resp BP Pulse Ox
98.3 F 75 22 129/74 99
06/02/24 15:16 06/02/24 15:16 06/02/24 15:16 06/02/24 15:16 06/02/24 15:16
Review of Systems
-
History Source: Patient and Coordinated Provider
Constitutional: Denies Fever
EENT: Reports No Symptoms Reported
Respiratory: Reports Cough and Trouble Breathing
Cardiac: Reports No Symptoms; Denies Chest Pain
Physical Exam
-
General: Well Developed, Well Nourished and No Apparent Distress
HEENT: Normocephalic, Atraumatic and Moist Mucous Membranes
Respiratory: Clear to Auscultation; Negative Wheezes, Rales or Rhonchi
Cardiac: S1/S2 and Irregular Rhythm
GI: Soft, Nontender and Nondistended
[2024-06-02] MEDS: LASIX 80 MG IV (16:33)
[2024-06-02 16:49] LABS: Glucose - Point of Care 119 mg/dl (70-99)
[2024-06-02] MEDS: LIPITOR 80 MG PO (17:37)
[2024-06-02 19:30] VITALS: BP 151/92
[2024-06-02] MEDS: SEROQUEL 150 MG PO (21:00)
[2024-06-02] MEDS: XARELTO 20 MG PO (21:01)
[2024-06-02] MEDS: MINIPRESS 10 MG PO (21:06)
[2024-06-02] MEDS: CATAPRES 0.1 MG PO (21:06)
[2024-06-02 21:14] LABS: Glucose - Point of Care 155 mg/dl (70-99)
[2024-06-02 23:21] VITALS: BP 104/66
[2024-06-03 03:27] VITALS: BP 132/86
[2024-06-03 04:51] VITALS: BMI 30.3
[2024-06-03 06:59] LABS: Hematocrit 35.5 % (39.0-52.0); Hemoglobin 11.4 g/dL (13.0-18.0); Mean Corp Hgb Conc. 32.1 g/dL (33.0-37.0); Mean Corpuscular Hgb 25.2 pg (27.0-31.0); Mean Corpuscular Volume 78.5 fL (80.0-94.0); Mean Platelet Volume 9.6 fL (7.4-10.4); Platelet Count 210 10^3/uL (130-400); Red Blood Cell Count 4.52 10^6/uL (4.70-6.10); Red Cell Dist. Width 16.4 % (11.5-14.5); White Blood Cell Count 3.7 10^3/uL (4.8-10.8)
[2024-06-03 07:20] VITALS: BP 148/90
[2024-06-03 07:23] LABS: Glucose - Point of Care 111 mg/dl (70-99)
[2024-06-03 07:43] LABS: Blood Urea Nitrogen 20 mg/dl (9-20); Calcium 8.5 mg/dl (8.4-10.2); Carbon Dioxide 25 mmol/L (22-30); Chloride 105 mmol/L (98-107); Estimated Creatinine Clearance 64 ml/min; Glucose 99 mg/dl (70-99); Potassium 4.1 mmol/L (3.5-5.1); Sodium 139 mmol/L (135-145); eGFR 51.99
[2024-06-03] MEDS: PROTONIX 40 MG PO (09:18)
[2024-06-03] MEDS: PACERONE 100 MG PO (09:18)
[2024-06-03] MEDS: BUSPAR 10 MG PO ×2 (09:18→20:43)
[2024-06-03] MEDS: LASIX 80 MG IV ×2 (09:18→16:11)
[2024-06-03] MEDS: COREG 6.25 MG PO ×2 (09:18→20:43)
[2024-06-03] MEDS: FLOMAX 0.4 MG PO (09:18)
[2024-06-03] MEDS: FARXIGA 10 MG PO (09:18)
[2024-06-03] MEDS: NORVASC 10 MG PO (09:19)
--- NOTE | 2024-06-03 10:00 | PTOTSP ---
Videofluoroscopic swallow study
Summary: Oral/pharyngeal swallowing within functional limits. No penetration/aspiration, significant residue, or retention in esophagus during esophageal sweep.
Recommendations:
1. Regular, Thin Liquids
2. Medications: as best tolerated
3. Strategies: upright to 90 degrees, small single sips/bites, slow rate, remain upright to 30 degrees after eating/drinking
4. No further dysphagia tx warranted. Please reconsult as appropriate.
--- NOTE | 2024-06-03 10:18 | W.PN.CD ---
Today's Communication / Plan
-
Last day IV diuresis
Switch to lasix 40 mg
Discussed dietary improvements to avoid rehospitalization
Discussed medication adherence
Stop amlodipine start Valsartan 80 tomorrow
BMP next week for follow up with PCP/cardiology
We will sign off please call with questions/concerns
Impression / Plan
-
Ketan Juárez is a 63-year-old male (follows at the [facility]), with heart failure with reduced ejection fraction (30-35%), atrial fibrillation (type unknown, on rivaroxaban), CKD, NIDDM, hypertension, dyslipidemia, current smoker, and depression who
presented to the emergency department with a chief complaint of shortness of breath, following recent hospitalization for heart failure exacerbation.
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
Heart failure with reduced ejection fraction (EF 30-35%), acute on chronic
-Exacerbation from not taking meds and dietary indiscretion
-Echo (05/10/24) shows LVEF 30-35% with global hypokinesis, stage III DD, moderate MR, moderate to severe TR with PASP 58 mmHg
-wt is up since discharge on 05/15, BNP 1840
-Lasix 80 mg IV twice daily, last day today
-Monitor daily weight, I/O, and BMP with diuresis. Dry weight 103-104 kg
-GDMT: Continue carvedilol 6.25 mg twice daily and dapagliflozin 10 mg daily. Start Valsartan 80 mg tomorrow, stopping amlodipine, BMP in 1 week
- He has outpt cards f/u on he tells me in about 1 week
Atrial fibrillation, persistent
-Currently rate controlled
-Device interrogation (05/13/24): followed at [facility]; leads normal, Ap 51% Vpaced 10%, AF persistent since March
-Oral Anticoagulation: Xarelto 20 mg every evening, appropriate dosing as CrCl >50
-[id number]: Score at least 3 (Heart failure, DM, HTN)
-KAILEY SHOWED GEOFFREY THROMBUS
-Continue amiodarone 100 mg daily
Hypertension
-Continue GDMT as above
-Stop amlodipine 10 mg start valsartan 80 mg. Goal will be to ultimately transition this to additional GDMT once kidney function improves
Belching/bloating
-Suspect he has GERD and this also may be contributing to his nightly symptoms
-Start pantoprazole
STERLING on CKD
-Baseline creatinine 1.6. Resolved
Subjective: Feeling much improved
Physical Exam
Vital Signs/Labs
Vital Signs
Temp Pulse Resp BP Pulse Ox
98 F 73 16 148/90 98
06/03/24 07:20 06/03/24 07:20 06/03/24 07:20 06/03/24 07:20 06/03/24 08:10
06/02/24 06/03/24 06/04/24
06:59 06:59 06:59
Actual Weight 241 lb 9 oz 229 lb 5 oz
06/03/24 05:31
06/03/24 05:31
APTT Cancelled 06/01/24 20:45
Triglycerides 102 mg/dl (10-149) 06/02/24 07:47
LDL Cholesterol, Calc 27 mg/dl 06/02/24 07:47
VLDL Cholesterol, Calc 20 mg/dl (0-30) 06/02/24 07:47
HDL Cholesterol 28 mg/dl 06/02/24 07:47
06/01/24
11:18
Xco-L-Woqchumpfoe Pept 1840
LAB Results
06/01/24
11:18
Troponin I 0.013
Physical Exam
Constitutional: No acute distress and Comfortable
EENT: Anicteric
Cardiovascular: Rhythm/rate is irregular
Respiratory: Respiratory effort normal and Lungs clear to auscul.
GI: Soft
Neuro/Psych: AO x 3
Data Reviewed
-
Date of Service: June 03, 2024
Medical Decision Making: Reviewed Test Results
EKG: Tracing Personally Visualized and interpreted (af)
Echo: Report Reviewed by me
Labs: Labs Reviewed by me
--- NOTE | 2024-06-03 10:19 | CM ---
Speech therapy eval done.
IV Lasix increased.
PT screening said no skilled needs.
CM will continue to assist and assess for dc needs.
PLAn Home no anticipated needs
[2024-06-03 11:43] VITALS: BP 131/83
--- NOTE | 2024-06-03 11:47 | W.PN.GI.CBS2 ---
Today's Communication / Plan
-
diet
Assessment / Plan
-
Pt is a 63yo retired with hx afib on Xarelto, CHF, AICD, HTN, hyperlipidemia, CKD, NIDDM, anxiety, PTSD, gout, tobacco abuse presents with multiple complaints with shortness of breath worse with exertion, palpitation with chest pain to
back. he also had complaints of nausea, abdominal pain,belching, diarrhea, and lightheadedness on arrival. He was noted with recent norovirus(+ 05/12/24) and heart failure admission 2 weeks ago. On admission concern for multi factorial process.
He has been seen by pulmonary with no suspected pulm process and cardiology with concern for acute on chronic heart failure exacerbated by Afib since March with tachycardia. There was plan for KAILEY/CV but noted back in NSR. Asked to see for GI
complaints of, belching, nausea, abdominal pain, and diarrhea. No prior EGD and did have colonoscopy about 5 years ago at [facility] recalls as normal. Pt has been seen by speech therapy and given IDDS 4 diet and recommended GI
evaluation.+ NSAID use several times per week.
-eructation
-Abd X ray with gaseous distention of stomach in April
-nausea now improving
-abdominal pain
-diarrhea
-HFrEF with acute on chronic on admission
-afib on Xarelto
-NSAID use
-anemia with some iron deficiency
-recent norovirus
-altered mental status with some drifting off in conversation
other med problems:
-AICD
-HTN
-hyperlipidemia
-NIDDM
-anxiety/PTSD
-gout
-tobacco abuse
-ETOH abuse quit 2 years ago
PLAN:
symptoms resolved with diuresis
avoid nsaids
diet as per speech recommendations
will sign off call with questions
-
Subjective
Subjective
Date of Service: June 03, 2024
Pt with resolution of GI symptoms after fluid diuresis.
Passed video swallow exam
Objective
Data Reviewed
Laboratory Data:
Laboratory Results
06/03/24 05:31
06/03/24 05:31
Laboratory Results
APTT Cancelled 06/01/24 20:45
Total Bilirubin 0.6 mg/dl (0.2-1.3) 06/01/24 11:18
AST 24 U/L (17-59) 06/01/24 11:18
ALT 14 U/L (0-50) 06/01/24 11:18
Alkaline Phosphatase 87 U/L (38-126) 06/01/24 11:18
Vital Signs and I&O:
Vital Signs
Temp Pulse Resp BP Pulse Ox
97.7 F 72 16 131/83 99
06/03/24 11:43 06/03/24 11:43 06/03/24 11:43 06/03/24 11:43 06/03/24 11:43
I&O
06/02/24 06/03/24 06/04/24
06:59 06:59 06:59
Intake Total 540 / 540 180 / 180
Output Total 3500 / 3500
Balance -2960 / -2960 180 / 180
Physical Exam
Physical Exam
GI: Soft, Non Distended and Non Tender
[2024-06-03 11:53] LABS: Glucose - Point of Care 134 mg/dl (70-99)
--- NOTE | 2024-06-03 12:46 | PN.CDI ---
CDI
- -
CDI:
Physician Documentation Request
Admit Date: 06/01/24 15:10
Dear Doctor Neetu,
Patient admitted with acute on chronic systolic CHF.
2/6 PN, 'permanent atrial fibrillation....Continue rate control with beta-blockers.'
2/6 Cardiology PN, 'Atrial fibrillation, persistent...Currently rate controlled.'
Due to conflicting documentation, please provide in your note the likely type atrial fibrillation being evaluated, monitored and/ or treated:
Persistent atrial fibrillation - episodes of continuous AF that last more than 7 days and do not self-terminate
Permanent atrial fibrillation - when a decision has been made to accept the presence of AF and there is no further attempt to restore or maintain sinus rhythm
Other - please specify
Use of terms such as suspected, likely, concern for, or probable (associated with a specific diagnosis that is being evaluated, monitored, or treated as if it exists) are acceptable and can be coded in the inpatient setting, when documented at the
time of discharge.
Thank you,
Johanna LEONE,RN,CCDS
CDI Specialist
Available via tiger text
Please use your independent medical judgment in providing your response.
[2024-06-03 15:04] VITALS: BP 121/76
--- NOTE | 2024-06-03 15:31 | W.PN.HOSP.TC ---
Today's Communication/Plan
-
Ferrlecit
potential dc tomorrow
Assessment / Plan
Assessment / Plan
#sob multifactorial concern for aspiration
pt went into a severe coughing spasm during my visit 06/03, which sounded like aspiration
-COVID-negative
-Negative for influenza AMB
-BNP 1840
-Chest x-ray with cardiomegaly without associated pulmonary edema
-Nebs as needed
-obtain D dimer
-speech consulted
-VSE ordered
-pulmonology consulted
-cardiology consulted
GI consulted. input appreciated
input of Speech noted, diet has been advanced to regular
wt 106.6-->104kg
# Leukopenia/anemia with iron deficiency
-Fe sat 10% with Ferritin 62.2
-Patient with no acute bleeding
-Continue to monitor
Pt had colonoscopy ~5yrs ago, pt states was negative
reviewed with him, he will need to follow up with PCP post discharge regarding the anemia
will order 1 dose of Ferrlecit
# CKD stage IIIb
-Creatinine 1.8-->1.5
-Continue to monitor
# History of CHF - HFrEF 30-35%
-strict I &O
-daily weight
-diuretics continued
#Atrial fibrillation, persistent
-EKG with paced rhythm
Continue rate control with beta-blockers
Continue antiarrhythmics with amiodarone
Continue anticoagulant with Xarelto
Echo: 05/10/24 Moderately reduced left ventricular systolic function. Global hypokinesis with
abnormal (paradoxical) septal motion consistent with RV pacemaker. Left
ventricular ejection fraction is 30-35% by visual assessment.
Stage III diastolic dysfunction suggestive of restrictive filling pattern and
increased filling pressures.
Moderate mitral regurgitation.
Moderate to severe tricuspid regurgitation with moderate pulmonary
hypertension.
No prior study available for comparison.
KAILEY 06/02: Normal left ventricular chamber size with moderately reduced left ventricular
systolic function. Ejection fraction 25 to 30%. Global hypokinesis. Mild
left ventricular hypertrophy.
Mildly enlarged right ventricle with reduced right ventricular systolic
function.
ICD wire seen in the right heart
Spontaneous echo contrast noted in left atrial appendage with evidence of left
atrial appendage thrombus noted near the apex of the appendage.
Moderate mitral regurgitation with no systolic flow reversal in the right or
left upper pulm veins.
Moderate to severe tricuspid regurgitation.
Compared to the previous study, which was reviewed, left atrial appendage
thrombus is noted.
Due to left atrial appendage findings, cardioversion was not performed.
#Depression, anxiety, PTSD, history of polysubstance abuse
Continue Seroquel
Continue BuSpar
Continue naltrexone
#Hyperlipidemia:
Continue high-dose statins
#Diabetes mellitus:
Add insulin sliding scale
Update hemoglobin A1c at 6.5
potential dc tomorrow
#DVT prophylaxis:
Xarelto
Full code
Anticipated Discharge: Within 24 hours
Subjective/Interval History
-
Date of Service: June 03, 2024
Generally feels better
Objective Data
-
Labs:
Laboratory Results
06/03/24
05:31
WBC 3.7 L
Hgb 11.4 L
Hct 35.5 L
Plt Count 210
Sodium 139
Potassium 4.1
Chloride 105
Carbon Dioxide 25
BUN 20
Creatinine 1.5 H
Glucose 99
Calcium 8.5
Vital Signs:
Vital Signs
Temp Pulse Resp BP Pulse Ox
97.7 F 72 16 131/83 99
06/03/24 11:43 06/03/24 11:43 06/03/24 11:43 06/03/24 11:43 06/03/24 11:43
I&O
06/02/24 06/03/24 06/04/24
06:59 06:59 06:59
Intake Total 540 / 540 660 / 660
Output Total 3500 / 3500
Balance -2960 / -2960 660 / 660
Review of Systems
-
History Source: Patient and Coordinated Provider
Constitutional: Denies Fever
EENT: Reports No Symptoms Reported
Respiratory: Reports Cough and Trouble Breathing
Cardiac: Reports No Symptoms; Denies Chest Pain
Physical Exam
-
General: Well Developed, Well Nourished and No Apparent Distress
HEENT: Normocephalic, Atraumatic and Moist Mucous Membranes
Respiratory: Clear to Auscultation; Negative Wheezes, Rales or Rhonchi
Cardiac: S1/S2 and Irregular Rhythm
GI: Soft, Nontender and Nondistended
[2024-06-03] MEDS: FERRLECIT 110 MG IV (16:10)
[2024-06-03] MEDS: LIPITOR 80 MG PO (16:11)
[2024-06-03 16:58] LABS: Glucose - Point of Care 148 mg/dl (70-99)
[2024-06-03] MEDS: ATIVAN 0.5 MG PO ×2 (17:06→20:48)
[2024-06-03 19:55] VITALS: BP 134/83
[2024-06-03] MEDS: XARELTO 20 MG PO (20:43)
[2024-06-03] MEDS: SEROQUEL 150 MG PO (20:43)
[2024-06-03 21:50] LABS: Glucose - Point of Care 115 mg/dl (70-99)
[2024-06-03 23:37] VITALS: BP 96/57
[2024-06-04 03:57] VITALS: BP 136/77
[2024-06-04 06:00] VITALS: BMI 29.4
[2024-06-04 06:41] LABS: Hematocrit 38.5 % (39.0-52.0); Hemoglobin 12.6 g/dL (13.0-18.0); Mean Corp Hgb Conc. 32.7 g/dL (33.0-37.0); Mean Corpuscular Hgb 25.5 pg (27.0-31.0); Mean Corpuscular Volume 77.9 fL (80.0-94.0); Mean Platelet Volume 9.6 fL (7.4-10.4); Platelet Count 229 10^3/uL (130-400); Red Blood Cell Count 4.94 10^6/uL (4.70-6.10); Red Cell Dist. Width 15.9 % (11.5-14.5)
[2024-06-04 07:06] LABS: Blood Urea Nitrogen 25 mg/dl (9-20); Calcium 8.9 mg/dl (8.4-10.2); Carbon Dioxide 27 mmol/L (22-30); Chloride 101 mmol/L (98-107); Estimated Creatinine Clearance 50 ml/min; Glucose 113 mg/dl (70-99); Potassium 3.7 mmol/L (3.5-5.1); Sodium 140 mmol/L (135-145); eGFR 44.74
[2024-06-04 07:20] VITALS: BP 134/84
[2024-06-04 07:31] LABS: Glucose - Point of Care 136 mg/dl (70-99)
[2024-06-04] MEDS: PROTONIX 40 MG PO (08:06)
[2024-06-04] MEDS: COREG 6.25 MG PO (08:06)
[2024-06-04] MEDS: PACERONE 100 MG PO (08:06)
[2024-06-04] MEDS: FARXIGA 10 MG PO (08:06)
[2024-06-04] MEDS: LASIX 40 MG PO (08:06)
[2024-06-04] MEDS: FLOMAX 0.4 MG PO (08:06)
[2024-06-04] MEDS: BUSPAR 10 MG PO (08:06)
--- NOTE | 2024-06-04 09:41 | W.PN.HOSP.TC ---
Today's Communication/Plan
-
dc to home
Assessment / Plan
Assessment / Plan
#sob multifactorial concern for aspiration
pt went into a severe coughing spasm during my visit 06/03, which sounded like aspiration, pt states he is breathing much better, wants to go home and has been cleared by cardio to be dc
-COVID-negative
-Negative for influenza A&B
-BNP 1840
-Chest x-ray with cardiomegaly without associated pulmonary edema
-Nebs as needed
- D dimer 0.57 (nl 0-0.5)
-speech consulted
-VSE not done
-pulmonology consulted, rec outpt follow up
-cardiology consulted rec f/u with [place] cigar bander (pt does not remember name of [place] cigar bander)
GI consulted. input appreciated
input of Speech noted, diet has been advanced to regular
wt 106.6-->104-->101kg
# Leukopenia resolved, ?viral/anemia with iron deficiency better
Hgb 10.9-->11.4-->12.6
-Fe sat 10% with Ferritin 62.2
-Patient with no acute bleeding
-Continue to monitor
Pt had colonoscopy ~5yrs ago, pt states was negative
reviewed with him, he will need to follow up with PCP post discharge regarding the anemia
will order 1 dose of Ferrlecit
# CKD stage IIIb
-Creatinine 1.8-->1.5-->1.7
-Continue to monitor
# History of CHF - HFrEF 30-35%
-strict I &O
-daily weight
-diuretics continued
#Atrial fibrillation, persistent
-EKG with paced rhythm
Continue rate control with beta-blockers
Continue antiarrhythmics with amiodarone
Continue anticoagulant with Xarelto
Echo: 05/10/24 Moderately reduced left ventricular systolic function. Global hypokinesis with
abnormal (paradoxical) septal motion consistent with RV pacemaker. Left
ventricular ejection fraction is 30-35% by visual assessment.
Stage III diastolic dysfunction suggestive of restrictive filling pattern and
increased filling pressures.
Moderate mitral regurgitation.
Moderate to severe tricuspid regurgitation with moderate pulmonary
hypertension.
No prior study available for comparison.
KAILEY 06/02: Normal left ventricular chamber size with moderately reduced left ventricular
systolic function. Ejection fraction 25 to 30%. Global hypokinesis. Mild
left ventricular hypertrophy.
Mildly enlarged right ventricle with reduced right ventricular systolic
function.
ICD wire seen in the right heart
Spontaneous echo contrast noted in left atrial appendage with evidence of left
atrial appendage thrombus noted near the apex of the appendage.
Moderate mitral regurgitation with no systolic flow reversal in the right or
left upper pulm veins.
Moderate to severe tricuspid regurgitation.
Compared to the previous study, which was reviewed, left atrial appendage
thrombus is noted.
Due to left atrial appendage findings, cardioversion was not performed.
#Depression, anxiety, PTSD, history of polysubstance abuse
Continue Seroquel
Continue BuSpar
Continue naltrexone
#Hyperlipidemia:
Continue high-dose statins
#Diabetes mellitus:
Add insulin sliding scale
Update hemoglobin A1c at 6.5% on 05/10/24
potential dc tomorrow
#DVT prophylaxis:
Xarelto
Full code
More than 30 minutes spent in discharge including
Final examination of the patient
Summarizing hospital stay
Instructions for continuing care to all relevant caregivers
Preparation of discharge records, prescriptions, and referral forms
Total time spent (in minutes): 45
Anticipated Discharge: Today
Subjective/Interval History
-
Date of Service: June 04, 2024
Feeling better, anxiously awaiting dc
Objective Data
-
Labs:
Laboratory Results
06/04/24
05:49
WBC 5.0
Hgb 12.6 L
Hct 38.5 L
Plt Count 229
Sodium 140
Potassium 3.7
Chloride 101
Carbon Dioxide 27
BUN 25 H
Creatinine 1.7 H
Glucose 113 H
Calcium 8.9
Vital Signs:
Vital Signs
Temp Pulse Resp BP Pulse Ox
97.5 F 70 18 134/84 99
06/04/24 07:20 06/04/24 07:20 06/04/24 07:20 06/04/24 07:20 06/04/24 09:39
I&O
06/03/24 06/04/24 06/05/24
06:59 06:59 06:59
Intake Total 540 / 540 780 / 780
Output Total 3500 / 3500 5275 / 5275
Balance -2960 / -2960 -4495 / -4495
Review of Systems
-
History Source: Patient and Coordinated Provider
Constitutional: Denies Fever
EENT: Reports No Symptoms Reported
Respiratory: Denies Cough (much better) or Trouble Breathing (much better)
Cardiac: Reports No Symptoms; Denies Chest Pain
Physical Exam
-
General: Well Developed, Well Nourished and No Apparent Distress
HEENT: Normocephalic, Atraumatic and Moist Mucous Membranes
Respiratory: Clear to Auscultation; Negative Wheezes, Rales or Rhonchi
Cardiac: S1/S2 and Irregular Rhythm
GI: Soft, Nontender and Nondistended
Neuro: Awake, Alert and Oriented
[2024-06-04] MEDS: DIOVAN 80 MG PO (10:12)
[2024-06-04 11:00] VITALS: BP 132/80
--- NOTE | 2024-06-04 11:44 | PTCARENOTE ---
Reviewed discharge instructions with patient. Reviewed heart failure packet with patient. Patient verbalizes understanding of all teaching and denies questions at this time. IV and tele removed. Patient left ambulatory accompanied by staff member.
--- NOTE | 2024-06-04 16:22 | W.DS.TRANS ---
DC Summary - Police Detective
-
Discharge Instructions:
Discharge Diagnosis/Procedures Atrial Fibrillation with Heart Failure
Diet Low Sodium,Diabetic, Carb Controlled
Activity As tolerated
Driving Restrictions Not until seen by your Dr
Bathing Restrictions None
Blood Work CBC, BMP in 1 week
Instructions: *PCP/Other Director Clinical Operations Heart Failure Instructions
Stand-Alone Forms:
Changes to Home Medications: Yes
Discharge Medications:
DC Medications w/original date entered in [facility]
amiodarone 100 mg tablet 100 mg PO DAILY 10/18/23
buspirone 10 mg tablet 10 mg PO BID 10/18/23
carvedilol 6.25 mg tablet (Coreg) 6.25 mg PO BID 10/18/23
clonidine HCl 0.1 mg tablet 0.1 mg PO BID 10/18/23
cyanocobalamin (vitamin B-12) 1,000 mcg tablet 1,000 mcg PO DAILY 10/18/23
prazosin 5 mg capsule 10 mg PO HS 10/18/23
rivaroxaban 20 mg tablet (Xarelto) 20 mg PO HS 10/18/23
empagliflozin 10 mg tablet (Jardiance) 10 mg PO DAILY 05/10/24
furosemide 20 mg tablet (Lasix) 40 mg PO DAILY 05/10/24
quetiapine 100 mg tablet (Seroquel) 100 mg PO HS 05/10/24
tamsulosin 0.4 mg capsule 0.4 mg PO DAILY 05/10/24
atorvastatin 80 mg tablet 80 mg PO DAILY 06/01/24
dextromethorphan-guaifenesin 30 mg-600 mg tablet extended youfeyq44 hr (Mucinex DM) 1 tab PO [id number] PRN cough 06/01/24
docusate sodium 100 mg tablet 100 mg PO DAILYPRN PRN constipation 06/01/24
esomeprazole magnesium 20 mg capsule,delayed release (Nexium) 20 mg PO DAILYPRN PRN gerd 06/01/24
naltrexone 50 mg tablet 50 mg PO DAILY 06/01/24
ondansetron 4 mg disintegrating tablet 4 mg translingual Q8HPRN PRN NAUSEA 06/01/24
quetiapine 50 mg tablet 50 mg PO HS 06/01/24
valsartan 80 mg tablet (Diovan) 80 mg PO DAILY #30 tabs 06/04/24
Home Medication Changes
stop Norvasc and start Diovan instead
Pending Results: No
--- NOTE | 2024-06-04 16:54 | CM ---
Patient with Dx Afib with HF. Room air.
Spoke with patient who was preparing for discharge. The patient says he feels ready to go home today. He plans on driving himself home.
No CM d/c needs identified.
Plan home today.
--- NOTE | 2024-06-06 11:11 | W.HF.CON ---
Heart Failure
- LV Function
Left ventricular function study result: LV Ejection fraction </= 35% (ECHO 05/10/24)
Ejection Fraction Percentage: 30-35
- ARNI
Patient already on ARNI: No
Heart Failure ARNI Contraindication: Acute Renal Failure
- ACEI/ARB
Patient already on ACEI/ARB: Yes
- Beta Franco
Patient already on Evidence Based Beta Franco: Yes
- Mineralocorticord Receptor Antagonist
Patient already on MRA: No
Heart Failure MRA Contraindication: Acute Renal Insufficiency
- SGLT-2 Inhibitor
Patient already on SGLT-2 Inhibitor: Yes
- Afib Anticoagulation
Patient already on Anticoagulation for Afib: Yes
- NYHA CHF Classification
NYHA CHF Classification Level: Class III - Symptoms w/ min exertion, interferes w/ nml daily activity
- ACC/AHA Stage
ACC/AHA Stage: Stage C: Symptomatic Heart Failure
== END 2024-06-04 11:44 | disposition home or self-care (01) | DRG 291 ==
LOC: 4 EAST ACU 15:10
PROVIDERS: Nuclear Medicine Nuclear Cardiology; Registered Nurse; ADMITTING PHYSICIAN Internal Medicine; CONSULT PHYSICIAN Internal Medicine Critical Care Medicine; CONSULT PHYSICIAN Internal Medicine Gastroenterology; CONSULT PHYSICIAN Student in an Organized Health Care Education/Training Program; EMERGENCY PHYSICIAN Emergency Medicine
PROC: B24BZZ4 Ultrasonography of Heart with Aorta, Transesophageal (ICD-10-PCS; 2024-06-02)
DX: I13.0 Hypertensive heart and chronic kidney disease with heart failure and stage 1 through stage 4 chronic kidney disease, or unspecified chronic kidney disease (principal); I50.23 Acute on chronic systolic (congestive) heart failure; N17.9 Acute kidney failure, unspecified; I48.19 Other persistent atrial fibrillation; F17.210 Nicotine dependence, cigarettes, uncomplicated; Z11.52 Encounter for screening for COVID-19; N18.32 Chronic kidney disease, stage 3b; Z79.01 Long term (current) use of anticoagulants; F32.A Depression, unspecified; F41.9 Anxiety disorder, unspecified; F43.10 Post-traumatic stress disorder, unspecified; E78.00 Pure hypercholesterolemia, unspecified; K21.9 Gastro-esophageal reflux disease without esophagitis; D50.9 Iron deficiency anemia, unspecified
CPT/HCPCS: 71046; 74018; 74230; 80048; 80053; 80061; 82607; 82728; 82962; 83540; 83550; 83880; 84443; 84484; 85025; 85027; 85379; 85730; 87502; 87811; 92610; 92611; 93005; 93289; 93312; 93320; 93325; 94640; 96365; 99285; 99406; J2916

== ENCOUNTER 2024-10-20 03:33 | Inpatient (IN) | payer OTHER, SELFPAY ==
[2024-10-19 21:18] VITALS: BP 113/70
[2024-10-19 21:49] LABS: % Basophils 0.3 % (0-2); % Eosinophils 1.8 % (0-6); % Immature Granulocytes 0.2 % (0-0.5); % Lymphocytes 30.7 % (20.5-51.1); % Monocytes 8.5 % (1.7-9.3); % Neutrophils 58.5 % (42.2-75.2); Absolute Eosinophils 0.1 10^3/uL (0-0.7); Absolute Lymphocytes 1.9 10^3/uL (1.2-3.4); Absolute Monocytes 0.5 10^3/uL (0.1-0.6); Absolute Neutrophils 3.6 10^3/uL (1.4-6.5); Hematocrit 36.6 % (39.0-52.0); Hemoglobin 12.5 g/dL (13.0-18.0); Mean Corp Hgb Conc. 34.2 g/dL (33.0-37.0); Mean Corpuscular Hgb 27.6 pg (27.0-31.0); Mean Corpuscular Volume 80.8 fL (80.0-94.0); Mean Platelet Volume 9.2 fL (7.4-10.4); Nucleated Red Blood Cells % 0 % (-); Platelet Count 207 10^3/uL (130-400); Red Blood Cell Count 4.53 10^6/uL (4.70-6.10); Red Cell Dist. Width 15.7 % (11.5-14.5); White Blood Cell Count 6.1 10^3/uL (4.8-10.8)
[2024-10-19 22:15] LABS: ALT (SGPT) 12 U/L (0-50); AST (SGOT) 20 U/L (17-59); Albumin 4.4 g/dl (3.5-5.0); Alkaline Phosphatase 76 U/L (38-126); Blood Urea Nitrogen 43 mg/dl (9-20); Calcium 9.7 mg/dl (8.4-10.2); Carbon Dioxide 23 mmol/L (22-30); Chloride 109 mmol/L (98-107); Glucose 117 mg/dl (70-99); Sodium 141 mmol/L (135-145); Total Bilirubin 0.3 mg/dl (0.2-1.3); Total Protein 7.4 g/dl (6.3-8.2); eGFR 27.99
[2024-10-19 23:35] VITALS: BP 96/65
--- NOTE | 2024-10-19 23:58 | ED.GENMED ---
History of Present Illness
General
Chief Complaint: Abnormal Lab Value
Source: patient, previous radiology exam and previous hospital records (acute hospitalization 04/2024; 05/2024 for Acute CHF)
Exam Limitations: none
Time Seen by Provider: 10/19/24 23:40
History of Present Illness
History of Present Illness:
This is a 64-year-old gentleman with history of A-fib, CHF with reduced EF, hypertension, hyperlipidemia, chronic kidney disease stage IIIb, let-woxdzym-mdkyjqhnf diabetes, anxiety, remote history of substance abuse. He follows with with
double needle operator lockstitch and primary care physician at the [facility]. He has AICD in place and was hospitalized here April and then again in May with acute exacerbation of CHF.
At that time noted to be in persistent A-fib since March 2024.
KAILEY during hospitalization May of this year showed EF of 25 to 30% and noted left atrial appendage thrombus thus held off on cardioversion and recommended daily compliance with Xarelto.
Furosemide 20 mg daily was increased to 40 mg daily during hospitalization in May.
Since that hospitalization he continues to follow with his double needle operator lockstitch at the [facility]. He states he underwent cardioversion in July and perhaps 1 to 2 months ago a medication was increased (?)name.
He states he has been compliant with daily weights and weight has been stable ranging between 224 to 229 pounds. According to our records his dry weight is 228 pounds.
He underwent routine laboratory studies today at the [facility] and received a call from his double needle operator lockstitch misbah stating his creatinine has trended up and recommended he hold his Lasix and another medication(he is unsure of name) and recommended he come to
the ED for further evaluation and it appears he was instructed that he needed IV fluids, admission for med adjustment.
Patient denies cough no shortness of breath, no chest pain or palpitations, but has been somewhat fatigued over the past few days and intermittent dizziness/lightheaded especially during extremely hot, humid weather.
He denies leg pain or swelling.
No recent GI illness nor fever.
He states his diabetes/blood sugars have been well-controlled. He is currently hungry, requesting something to eat.
Patient does not have access to his laboratory studies but I have been provided with a telephone number for the [facility] to obtain outpatient records.
Past History
Past History
ED Past Medical History: Arrthythmia (Atrial fibrillation), CHF, HTN, Hypercholesterolemia, NIDDM, Renal failure (Chronic renal insufficiency.), Psychiatric (Anxiety; remote history of substance abuse) and Other (Gout, STERLING, A-fib)
ED Past Surgical History: Cardiac (AICD)
Social History
Tobacco: Smoker
Alcohol: Former
Drug: Former user
Personal: Single
Living: alone
Employment: Not employed
Family History
Family History: Other (Noncontributory)
Phy Exam
Physical Exam
Physical Exam:
GENERAL: Alert , in no apparent distress
EYE: . anicteric
NECK: Supple, nontender, no meningismus, no significant adenopathy. No JVD.
ENT: posterior pharynx is clear, oral mucosa is moist. TM clear b/l, nares patent.
CARDIAC: Regular rate and rhythm. no murmur.
LUNGS: Clear breath sounds bilaterally, no acute respiratory distress, no wheezes/rales/rhonchi
ABDOMEN: Soft, nondistended, without focal tenderness, normoactive BS.
NEUROLOGICAL: Alert and oriented x3, no focal neuro deficits.
SKIN: Warm and dry, normal color, skin intact. No rash.
MUSCULOSKELETAL: No C/C/E. peripheral pulses are full and equal b/l. No palpable tenderness.
PSYCH: Normal and appropriate interaction.
Course
Orders/Labs/Results
Orders:
Orders
10/19/24 21:21
Electrocardiogram (*1) Urgent
Reason for Study: Vertigo / Dizzy
EKG- Treatment ONCE
10/19/24 21:38
Complete Blood Count/With Diff Urgent
Comprehensive Metabolic Panel Urgent
10/19/24 23:47
Bladder Scan- Treatment ONCE
Comment: post void bladder scan
Urinalysis Reflex To Culture Urgent
Date Specimen was Collected: 10/20/24
Time Specimen was Collected: 01:29
10/19/24 23:57
Orthostatic VS- Treatment ONCE
0.9% Sodium Chloride 500 ml [Nss] 500 ml IV 250 mls/hr
10/20/24 01:41
0.9% Sodium Chloride 1000 ml [Nss] 1,000 ml IV 150 mls/hr
Abnormal Lab Results
10/19/24
21:38
RBC 4.53 L 10^6/uL
(4.70-6.10)
Hgb 12.5 L g/dL
(13.0-18.0)
Hct 36.6 L %
(39.0-52.0)
RDW 15.7 H %
(11.5-14.5)
Chloride 109 H mmol/L
(98-107)
BUN 43 H mg/dl
(9-20)
Creatinine 2.5 H mg/dL
(0.7-1.3)
Glucose 117 H mg/dl
(70-99)
10/19/24 21:38
10/19/24 21:38
Vital Signs
Initial and Last Documented VS:
Initial Vital Signs
Temp Pulse Resp BP Pulse Ox
98.9 F 94 20 113/70 99
10/19/24 21:18 10/19/24 21:18 10/19/24 21:18 10/19/24 21:18 10/19/24 21:18
Last Documented Vital Signs
Temp Pulse Resp BP Pulse Ox
98.9 F 70 17 101/67 97
10/19/24 21:18 10/20/24 00:00 10/20/24 00:00 10/20/24 00:00 10/20/24 00:00
MDM/Problems Addressed
Differential Diagnosis Includes:
Patient presents for evaluation as recommended by his double needle operator lockstitch due to outpatient labs showing up trend in creatinine.
I suspect acute on chronic kidney disease is related to increased dose of diuretic.
Must also consider bladder outlet obstruction thus will check postvoid bladder residual with bladder scan.
Labs show creatinine of 2.5, uptrend from his baseline of 1.7. BUN has trended up to 43, baseline appears to be mid 20s. Has had previous uptrend of BUN with aggressive diuresis during hospitalizations. Normal potassium. No acidosis.
Mild but stable anemia.
EKG shows normal sinus rhythm with first-degree AV block. Left axis deviation, poor R wave anteriorly. Normal sinus rhythm has replaced ventricular paced rhythm noted on EKG May 2024.
Nothing in history nor exam to suggest CHF/cardiac decompensation; lungs are clear to auscultation.
Initial blood pressure stable and at goal of 113/70. Upon recheck borderline hypotension without tachycardia.
Will gently hydrate with 500 mL normal saline solution and plan to check orthostatic vital signs.
I have placed a call to the [facility] [phone] and have spoken with supervisor cutting department. Awaiting requested most recent cardiology notes, lab studies, medication list as well as telephone note from double needle operator lockstitch if available.
Chronic conditions affecting care: DM, HTN, Cardiomyopathy, Arrhythmia and Kidney disease
Acute Exacerbation and/or Progression of Chronic Illness: Kidney disease
*Pulse Oximetry
SaO2: 97
Oxygen Mode of Delivery: Room air
Patient hypoxic: no
*EKG
Interpreted by ED Provider?: Yes
Interpretation: normal
Comparison EKG: changes noted (Normal sinus rhythm has replaced ventricular paced rhythm noted May 2024)
Rate: normal
Rhythm: sinus
[place]: left axis deviation
Interval: first degree heart block
QRS Pattern: poor R-wave progression
Ischemia: non-specific ST changes
*Pattern Scratcher Interpretation
Rate: normal
Interpretation: normal
Rhythm: sinus
*Critical Care Note
Total Time (30-74mins, 75-104mins- exclusive of procedures): Not Applicable
Update Note
Update Note:
01:45
500 mL normal saline solution has infused.
Patient remains mildly hypotensive and mildly positive orthostasis with systolic blood pressure dropping to 90 with standing accompanied with complaints of some dizziness.
Records from [facility] obtained and reviewed.
Apparently patient maintained on Entresto, not spironolactone. He is also maintained on Eliquis, not Xarelto.
There is nothing in these records noting recent change in Entresto however a complete medication list was not included.
Blood work from the [facility] from October 19 notes creatinine of 2.59 with mildly elevated potassium of 5.4. Normal TSH 0.959. Mild anemia, similar to previous labs. Hemoglobin A1c 6.5.
Due to continued hypotension, orthostasis, patient will require continued gentle IV hydration and due to cardiomyopathy with significantly diminished EF he is certainly at risk for development of acute CHF thus will require acute hospitalization for
continued gentle hydration, repeat laboratory studies and adjustment of medications.
ED Attending Note
-
Portions of this chart may have been created with voice recognition software.� Occasional wrong word or��sound alike� substitutions may have occurred due to the inherent limitations of voice recognition software.
Discharge Plan
Departure
Patient Disposition: Admit
Date of Disposition: 10/20/24
Time of Disposition: 01:50
Admit to: Med/Surg
Admit to doctor: Vernell
Presentation/result/management discussed w/ accepting MD/DO: Hospitalist
Condition: Fair
Discharge Problem:
Acute kidney injury superimposed on stage 3b chronic kidney disease, Acute hypotension
Prescriptions:
No Action
clonidine HCl 0.1 mg Tablet
0.1 mg PO BID
carvedilol [Coreg] 6.25 mg Tablet
6.25 mg PO BID
cyanocobalamin (vitamin B-12) 1,000 mcg Tablet
1,000 mcg PO DAILY
buspirone 10 mg Tablet
10 mg PO BID
amiodarone 100 mg Tablet
100 mg PO DAILY
Xarelto 20 mg Tablet
20 mg PO HS
prazosin 5 mg Capsule
10 mg PO HS
tamsulosin 0.4 mg Capsule
0.4 mg PO DAILY
furosemide [Lasix] 20 mg Tablet
40 mg PO DAILY
Jardiance 10 mg Tablet
10 mg PO DAILY
quetiapine [Seroquel] 100 mg tablet
100 mg PO HS
Rx Instructions:
150mg total
quetiapine 50 mg Tablet
50 mg PO HS
Rx Instructions:
total 150mg
Mucinex DM 30-600 mg Tablet Extended Release 12 Hr
1 tab PO [id number] PRN (Reason: cough)
docusate sodium 100 mg Tablet
100 mg PO DAILYPRN PRN (Reason: constipation)
esomeprazole magnesium [Nexium] 20 mg Capsule,Delayed Release(Dr/Ec)
20 mg PO DAILYPRN PRN (Reason: gerd)
ondansetron 4 mg tablet,disintegrating
4 mg translingual Q8HPRN PRN (Reason: NAUSEA )
atorvastatin 80 mg Tablet
80 mg PO DAILY
naltrexone 50 mg Tablet
50 mg PO DAILY
valsartan [Diovan] 80 mg tablet
80 mg PO DAILY Qty: 30 5RF
Referrals:
UNKNOWN - PT DOES,NOT KNOW [Family Provider]
Interventions
Interventions:
*Risk Screen - Suicide Last Done: 10/19/24 21:20
*Neglect/Abuse Screening Last Done: 10/19/24 21:20
Discharge Date and Time
Print Language: PANAMANIAN
[2024-10-20] VITALS (15 sets, daily range): BP systolic 84–148; BP diastolic 54–97; PULSE 70–89; BMI 30.2
[2024-10-20] MEDS: NSS 500 IV (00:51)
[2024-10-20] MEDS: NSS 1000 IV (02:14)
[2024-10-20 02:29] LABS: Urine Albumin 1+ (Neg - Trace); Urine Bilirubin Negative (Negative); Urine Character Clear (Clear); Urine Color Yellow; Urine Glucose Negative (Negative); Urine Ketone Negative (Negative); Urine Leukocyte 1+ (Negative); Urine Nitrite Negative (Negative); Urine Occult Blood Negative (Negative); Urine Specific Gravity 1.025 (<1.030); Urine Urobilinogen Negative (Neg - 1+)
--- NOTE | 2024-10-20 02:32 | HPS.HSE ---
Family Physician
-
Family Physician: NOT KNOW UNKNOWN - PT DOES
Chief Complaint
-
Elevated creatinine
History of Present Illness
This is a 64-year-old male with past medical history of congestive heart failure with reduced EF of 4030% with global hypokinesis status post defibrillator, atrial fibrillation on anticoagulation, gout, BPH, hyperlipidemia, stx-nqynjcs-mljnvltwg
diabetes, and a nxiety presenting to the emergency department from home after being told to seek help at the emergency department for abnormal labs, specifically elevated creatinine.
According to records patient's farm supervisor ordered routine blood test which shows that his creatinine was 2.5 which is up from his baseline of 1.7 here few months ago. Due to the elevated creatinine was asked to come to the emergency department.
Patient himself is unable to provide much history and [facility]
Patient reported that his medications were adjusted about a month ago. At the same time he started having loose stools and has been having them of 1 till yesterday. He reports having intermittent dizziness. He says when he gets up he is more
dizzy. He also notes that his blood pressure has been reduced and this is associated with his dizziness. He denies any melena. He denies any hematochezia. He reports his appetite is the same oral intake is the same. He denies any lower
extremity edema and he has not been having any chest pain palpitations or shortness of breath.
On his last admission here the patient was on carvedilol 6.25, furosemide 40 mg daily rivaroxaban and valsartan. It appears that after discharge he had followed up with his farm supervisor and he had more intensified GDMT including increasing
carvedilol, starting Entresto and being placed on apixaban. [facility] stated that patient is also on multiple noncardiac medications that will need to be adjusted for his GFR or BP and it is better to have his adjustments done inpatient
with possibly gentle hydration.
While patient denies any symptoms, he was last slightly orthostatic in the emergency department. His blood pressure was 101/67 with a pulse of 70 and was satting 97% on room air. Was afebrile. ECG shows normal sinus rhythm with first-degree AV
block and no acute ischemic changes.
His CBC was unremarkable, he has creatinine of 2.5 here with a BUN of 43. Electrolytes were stable with a potassium of 5.0.
Medical History
Past Medical History
Past Medical History: Reports NIDDM and Other
Additional Past Medical History:
A-fib
CHF
Hypertension
Hyperlipidemia
CKD
Anxiety
Gout
A-fib
Past Surgical History: Reports None
Additional Past Surgical History:
defibrillator
Social History
Tobacco: Smoker
Alcohol: None
Drug: None
Family History
Family History: Not pertinent
Allergies / Home Medications
Allergies reflects when Allergies were last updated in [facility].
Home Medications with original date entered in [facility]
Allergy/Medication List:
Allergies
Allergy/AdvReac Type Severity Reaction Status Date / Time
No Known Drug Allergies Allergy Unknown Verified 05/10/24 15:52
Home Medications
amiodarone 100 mg tablet 100 mg PO DAILY 10/18/23
atorvastatin 80 mg tablet (Lipitor) 80 mg PO QPM 10/18/23
buspirone 10 mg tablet 10 mg PO BID 10/18/23
carvedilol 6.25 mg tablet (Coreg) 6.25 mg PO BID 10/18/23
clonidine HCl 0.1 mg tablet 0.1 mg PO BIDPRN PRN anxiety 10/18/23
cyanocobalamin (vitamin B-12) 1,000 mcg tablet 1,000 mcg PO DAILY 10/18/23
prazosin 5 mg capsule 10 mg PO HSPRN PRN night vázquez 10/18/23
rivaroxaban 20 mg tablet (Xarelto) 20 mg PO HS 10/18/23
amlodipine 10 mg tablet (Norvasc) 10 mg PO DAILY 05/10/24
empagliflozin 10 mg tablet (Jardiance) 10 mg PO DAILY 05/10/24
furosemide 20 mg tablet (Lasix) 20 mg PO DAILY 05/10/24
losartan 50 mg tablet 50 mg PO DAILY 05/10/24
metformin 1,000 mg tablet 1,000 mg PO BID 05/10/24
quetiapine 100 mg tablet (Seroquel) 150 mg PO HS 05/10/24
tamsulosin 0.4 mg capsule 0.4 mg PO DAILY 05/10/24
Review of Systems
-
Constitutional: Reports No Symptoms
EENT: Reports No Symptoms
Respiratory: Reports No Symptoms
Cardiac: Reports No Symptoms
Abdomen/GI: Reports No Symptoms
: Reports No Symptoms
Musculoskeletal: Reports No Symptoms
Skin: Reports No Symptoms
Neurological: Reports No Symptoms
Endocrine: Reports No Symptoms
Hematologic/Lymphatic: Reports No Symptoms
Psych: Reports No Symptoms
Physical Exam
Vital Signs
Vital Signs
Temp Pulse Resp BP Pulse Ox
98.9 F 70 17 101/67 97
10/19/24 21:18 10/20/24 00:00 10/20/24 00:00 10/20/24 00:00 10/20/24 00:00
Physical Exam
General: Well Developed, Well Nourished and No Apparent Distress
HEENT: NormoCephalic, Moist mucous membranes and Atraumatic
Respiratory: Clear
Cardiac: S1/S2 and Regular Rhythm; No Murmur or Rub
GI: Soft, Non Tender, Non Distended and Normal Bowel Sounds; No Organomegaly
Rectal: Deferred by Provider
Musculoskeletal: No Clubbing, No Cyanosis and No Edema
Skin: No Rash
Neuro: AO x 3 and Nonfocal/grossly intact
Psych: Calm
Laboratory Results
-
10/19/24 21:38
10/19/24 21:38
Laboratory Results
Total Bilirubin 0.3 mg/dl (0.2-1.3) 10/19/24 21:38
AST 20 U/L (17-59) 10/19/24 21:38
ALT 12 U/L (0-50) 10/19/24 21:38
Alkaline Phosphatase 76 U/L (38-126) 10/19/24 21:38
Data Reviewed
-
Medical Tests (Nuc Med, Echo, EKG etc): Image Personally Visualized and interpreted
Lab Data: Labs Reviewed by me
Old Records: Reviewed
Impression/Plan
-
IMPRESSION:
64-year-old with past medical history of CHF with reduced EF, roo-bilupxd-adhhodsep diabetes, atrial fibrillation on anticoagulation, BPH presenting to the emergency department with elevated creatinine from a baseline of 1.7-2.5. Patient reports
intermittent dizziness, diarrhea for about 1 month intermittently, no fevers or chills, no urinary symptoms as well as recent up titration of his GDMT.. Patient has a blood pressure in the 90s in the emergency department, he was otherwise in usual
state of health and with normal vital signs, normal CBC and normal electrolytes. ECG shows no ischemia and and no arrhythmia.
PLAN:
STERLING�suspect STERLING on CKD, patient has no evidence of volume overload and is likely more prerenal due to fluid losses and aggressive GDMT with ARNI, uptitrated carvedilol and diuretics as well as clonidine being used for anxiety and tamsulosin.
- Admit to telemetry
- Hold Entresto,
- Hold Lasix and Jardiance
- Patient is getting IV fluids in the ED, will complete the given volume and reassess
- Orthostatic vital signs
- Hold parameters on clonidine and Coreg
CHF -euvolemic to hypovolemic
- Holding Lasix for now
- Gentle hydration
- Daily weights and ins and outs
- Cardiology consult on adjustment of GDMT
Atrial fibrillation
- Continue apixaban 2.5 mg p.o. twice daily
- Continue amiodarone
- Continue Coreg with hold parameters at 6.25 mg twice daily
Diabetes
- Holding Jardiance
- Sliding scale insulin
Anxiety
-Continue BuSpar
- hold clonidine
- on prazosin HS, nick continue with hold parameters
DVT prophylaxis�on apixaban
CODE STATUS�full code
[2024-10-20 02:52] LABS: Urine Red Blood Cell 0-2 /HPF (0-2); Urine Squamous Cell >30 /LPF (Few)
--- NOTE | 2024-10-20 04:30 | SUR.OPER ---
Pt brought to bed from ED via stretcher. Pt ambulated from stretcher to bed. A&Ox3. Oriented to unit. Plan of care ongoing.
--- NOTE | 2024-10-20 05:15 | PTCARENOTE ---
This RN messaged SOLO Blackman about IV fluid rate for this patient. Patient has history of CHF and is ordered fluids at 150 ml/hr. Lungs clear on Room Air. SOLO Guardado advised this RN that she spoke with admitting doctor and that
patient will only be receiving 1 L of NS. Plan of care ongoing.
[2024-10-20 08:14] LABS: Blood Urea Nitrogen 41 mg/dl (9-20); Calcium 8.7 mg/dl (8.4-10.2); Carbon Dioxide 17 mmol/L (22-30); Chloride 114 mmol/L (98-107); Estimated Creatinine Clearance 40 ml/min; Glucose 118 mg/dl (70-99); Magnesium 1.6 mg/dl (1.6-2.3); Potassium 4.7 mmol/L (3.5-5.1); Sodium 139 mmol/L (135-145)
--- NOTE | 2024-10-20 08:29 | CON.CAR ---
Addendum entered and electronically signed by Lico Vivas MD 10/20/24 11:59:
64 yo male with PMH of chronic HFrEF, paroxysmal A fib on eliquis, CKD3a is admitted with STERLING. His elastic yarn twister at the [facility] called him with STERLING after starting entresto and advised to go to ED. Exam with RRR, no murmurs, no edema. Cr 2.1. Tele: mostly
A paced.
Chronic HFrEF. GDMT limited by renal function. Now with STERLING. Entresto stopped. Also avoiding SGLT2i, aldactone. Lasix on hold. Cr peaked at 2.5; now at 2.1; baseline around 1.7.
Trend Cr. Assess to resume PO lasix tomorrow. Remain off of entresto.
Continue coreg. May need to increase base on BP trend off of entresto.
Original Note:
Consultation
Consultation Request
Date/Time Consultation Requested: 10/20/24414
Date/Time Consultation Performed: 10/20/24 0800
Requesting Provider: Dr. Matt
Performing Provider: Teresa BANDA for Dr. Vivas
Reason for Consultation: CHF on GDMT, now with STERLING
Medical History
-
Chief Complaint: abrnomal lab value
History of Present Illness:
64-year-old male (follows at the [facility]) with history of heart failure with reduced ejection fraction (EF around 30%), atrial fibrillation on Eliquis, CKD, NIDDM, hypertension, dyslipidemia, smoking, ICD, and anxiety. He was here with CHF exacerbation
in 05/2024 and was diuresed. He was not cardioverted because of GEOFFREY thrombus. However, he tells me since then, he was cardioverted in July. It sounds like his Entresto was increased recently and follow-up labs revealed STERLING and he has been feeling
dizzy and [facility] recommended he come to the hospital for fluids and med adjustments. Patient reports he has been LH with standing for about 4 days and felt that his BP was low, but did not check at home. It was low here and he has been given
IV fluids. He is in no distress at the time of my assessment.
Past Medical History
Past Medical History: Arrhythmias (Atrial fibrillation), CHF (HFrEF), HTN, Hypercholesterolemia, NIDDM and Renal Failure (CKD)
Social History
Tobacco: Smoker
Drug: Former User
Family History
Family History: Reviewed & Not Pertinent
Allergies / Home Medications
Allergy/AdvReac Type Severity Reaction Status Date / Time
No Known Drug Allergies Allergy Unknown Verified 10/19/24 21:20
Med rec not yet done officially, but per patient cardiac meds include:
Eliquis 5 mg PO BID
Coreg 12.5 mg PO BID
Entresto (dose unclear, but thinks on lowest dose now which is 24/26 mg PO BID)
Lasix 40 mg PO daily
amiodarone 100 mg PO daily
Review of Systems
-
History Source: Patient
All other systems: Negative unless noted
Neurological: Dizzy (with standing)
Physical Exam
Vital Signs
Temp Pulse Resp BP Pulse Ox
97.8 F 72 17 110/62 99
10/20/24 07:00 10/20/24 07:00 10/20/24 07:00 10/20/24 07:00 10/20/24 07:00
Lab Results
10/19/24 21:38
10/20/24 07:00
Physical Exam
General: Well Developed, Well Nourished and No Apparent Distress
HEENT: Normocephalic and Anicteric
Respiratory: Clear and Non Labored Respirations
Cardiac: Regular Rhythm
Musculoskeletal: No Edema
Skin: Warm and Dry
Neuro: AO x 3
Psych: Calm
Impression / Plan
-
STERLING on CKD: improving
-baseline creatinine seems to be around 1.7, came in at 2.5, now 2.1
-patient seems to be on metformin as OP, now stopped
-Entresto and Lasix held
Hypotension:
-improving with adjustments as above
Heart failure with reduced ejection fraction: chronic
-most recent EF as below
-hold Lasix, gentle fluids given- monitor volume
CM, type unclear:
-Entresto held for STERLING
-tells me SGLT2I was stopped as OP, reasoning unknown
-continue Coreg (resumed at lower dose), follow BP's
-no MRA for now with STERLING and orthostasis
Atrial fibrillation, paroxysmal:
-now stable in SR
-hx of GEOFFREY thrombus 05/2024, but since then it sounds like it resolved and he was cardioverted in July. He is in SR.
-continue Eliquis, but correct dose based on age, weight, creatinine is 5 mg PO BID, so I changed it back
DM:
-metformin off
-management per primary team
Data:
KAILEY 06/02/24: Ejection fraction 25 to 30%. Global hypokinesis. Mild left ventricular hypertrophy. Mildly enlarged right ventricle with reduced right ventricular systolic function. ICD wire seen in the right heart. Spontaneous echo contrast noted in
left atrial appendage with evidence of left atrial appendage thrombus noted near the apex of the appendage. Moderate mitral regurgitation with no systolic flow reversal in the right or left upper pulm veins. Moderate to severe tricuspid
regurgitation. Compared to the previous study, which was reviewed, left atrial appendage thrombus is noted. Due to left atrial appendage findings, cardioversion was not performed.
Echo (05/10/24) shows LVEF 30-35% with global hypokinesis, stage III DD, moderate MR, moderate to severe TR with PASP 58 mmHg
Data Reviewed
-
EKG: Tracing Personally Visualized and interpreted (NSR with 1st degree AVB, LAD)
Medical Tests (Nuc Med, Echo etc): Report Reviewed by me (KAILEY as below)
Labs: Labs Reviewed by me
[2024-10-20 08:30] LABS: Glucose - Point of Care 130 mg/dl (70-99)
[2024-10-20] MEDS: COREG 6.25 MG PO ×2 (08:47→20:01)
[2024-10-20] MEDS: PACERONE 100 MG PO (08:47)
[2024-10-20] MEDS: BUSPAR 10 MG PO ×2 (08:47→20:01)
[2024-10-20] MEDS: REVIA 50 MG PO (08:47)
[2024-10-20] MEDS: FLOMAX 0.4 MG PO (08:47)
[2024-10-20] MEDS: ELIQUIS 5 MG PO ×2 (08:56→20:01)
[2024-10-20 12:05] LABS: Glucose - Point of Care 121 mg/dl (70-99)
[2024-10-20 16:44] LABS: Glucose - Point of Care 123 mg/dl (70-99)
--- NOTE | 2024-10-20 17:00 | CM ---
Alert awake oriented patient who lives with 2 room mates Michelle in a 3 story home with 2 step to enter and 13 steps to bed and bathroom. He is independent in driving and in all activities of daily living.He was offered VN he declined need.No
DME.
No VN hx / No SNF history
[facility]
PLAN Home Declined VN
[2024-10-20 21:10] LABS: Glucose - Point of Care 112 mg/dl (70-99)
[2024-10-20] MEDS: MINIPRESS 5 MG PO (21:12)
[2024-10-20] MEDS: SEROQUEL 100 MG PO (21:12)
[2024-10-21 03:15] VITALS: BP 110/64
[2024-10-21 06:00] VITALS: BMI 30.1
[2024-10-21 07:46] LABS: Glucose - Point of Care 137 mg/dl (70-99)
[2024-10-21 07:48] VITALS: BP 159/90
[2024-10-21] MEDS: PACERONE 100 MG PO (07:51)
[2024-10-21] MEDS: BUSPAR 10 MG PO (07:51)
[2024-10-21] MEDS: ELIQUIS 5 MG PO (07:51)
[2024-10-21] MEDS: REVIA 50 MG PO (07:52)
[2024-10-21] MEDS: FLOMAX 0.4 MG PO (07:52)
[2024-10-21] MEDS: COREG 6.25 MG PO (07:52)
[2024-10-21 08:23] LABS: Blood Urea Nitrogen 26 mg/dl (9-20); Calcium 9.7 mg/dl (8.4-10.2); Carbon Dioxide 19 mmol/L (22-30); Chloride 114 mmol/L (98-107); Estimated Creatinine Clearance 56 ml/min; Glucose 118 mg/dl (70-99); Sodium 142 mmol/L (135-145); eGFR 51.67
--- NOTE | 2024-10-21 10:08 | W.PN.CD ---
Today's Communication / Plan
-
- Creatinine appears to be now back to baseline; do not resume Entresto.
- Patient eager to be discharged to home today; can discharge home on Lasix 40 mg PO daily.
- Patient can follow-up with his primary Contract Forester as an outpatient at the [facility].
Impression / Plan
-
STERLING on CKD: improving
- baseline creatinine seems to be around 1.7, came in at 2.5-->2.1-->now 1.5 today.
- Creatinine appears to be now back to baseline; do not resume Entresto.
- Patient eager to be discharged to home today; can discharge home on Lasix 40 mg PO daily.
Hypotension:
- Resolved with discontinuation of Entresto.
Hypertension:
- Recommend patient be reevaluated by primary hvac residential service technician as an outpatient for any additional adjustments needed with the discontinuation of Entresto.
Chronic heart failure with reduced ejection fraction (EF 25-30%):
- Compensated on examination.
- Discontinue Entresto as above.
- Resume Lasix 40 mg PO daily.
- SGLT2I was stopped as OP, reasoning unknown.
- Continue Coreg .
- No MRA for now with STERLING and orthostasis.
Atrial fibrillation, paroxysmal:
- Atrial paced on telemetry.
-hx of GEOFFREY thrombus 05/2024, but since then it sounds like it resolved and he was cardioverted in July. He is in SR.
-Continue Eliquis.
DM:
-management as per primary team
Data:
KAILEY 06/02/24: Ejection fraction 25 to 30%. Global hypokinesis. Mild left ventricular hypertrophy. Mildly enlarged right ventricle with reduced right ventricular systolic function. ICD wire seen in the right heart. Spontaneous echo contrast noted in
left atrial appendage with evidence of left atrial appendage thrombus noted near the apex of the appendage. Moderate mitral regurgitation with no systolic flow reversal in the right or left upper pulm veins. Moderate to severe tricuspid
regurgitation. Compared to the previous study, which was reviewed, left atrial appendage thrombus is noted. Due to left atrial appendage findings, cardioversion was not performed.
Echo (05/10/24) shows LVEF 30-35% with global hypokinesis, stage III DD, moderate MR, moderate to severe TR with PASP 58 mmHg
Physical Exam
Vital Signs/Labs
Vital Signs
Temp Pulse Resp BP Pulse Ox
98.5 F 72 17 159/90 99
10/21/24 07:48 10/21/24 07:48 10/21/24 07:48 10/21/24 07:48 10/21/24 07:48
10/20/24 10/21/24 10/22/24
06:59 06:59 06:59
Actual Weight 103.827 kg 103.589 kg
10/19/24 21:38
10/21/24 07:22
Magnesium 1.6 mg/dl (1.6-2.3) 10/20/24 07:00
Physical Exam
Constitutional: No acute distress and Comfortable
EENT: Anicteric
Cardiovascular: Rhythm & rate is regular, Pedal edema is absent, Diastolic murmur absent and S1S2 is normal
Respiratory: Respiratory effort normal and Lungs clear to auscul.
GI: Soft
Neuro/Psych: AO x 3
Other: Skin (Warm, dry, intact)
Data Reviewed
-
Date of Service: October 21, 2024
EKG: Tracing Personally Visualized and interpreted (Telemetry: Paced)
Echo: Report Reviewed by me (LVEF 30%)
Medical Tests (PFT, Pathology etc): Discussed with Physician ( primary Hospitalist) and Discussed with Patient
Labs: Labs Reviewed by me
--- NOTE | 2024-10-21 10:31 | CM ---
MD entered order for discharge
Pt said he was driving himself home.
Offered VN he declined need.
PLAN Home no needs .
[2024-10-21 10:55] VITALS: BP 154/93
--- NOTE | 2024-10-21 11:02 | W.PN.HOSP.TC ---
Today's Communication/Plan
-
dc
Assessment / Plan
Assessment / Plan
IMPRESSION:
64-year-old with past medical history of CHF with reduced EF, scs-ikimjew-xvsxchptq diabetes, atrial fibrillation on anticoagulation, BPH presenting to the emergency department with elevated creatinine from a baseline of 1.7-2.5. Patient reports
intermittent dizziness, diarrhea for about 1 month intermittently, no fevers or chills, no urinary symptoms as well as recent up titration of his GDMT.. Patient has a blood pressure in the 90s in the emergency department, he was otherwise in usual
state of health and with normal vital signs, normal CBC and normal electrolytes. ECG shows no ischemia and and no arrhythmia.
PLAN:
STERLING�suspect STERLING on CKD, patient has no evidence of volume overload and is likely more prerenal due to GDMT .
Creatinine back to baseline. Today 1.5. Blood pressure stable today.
-Continue to hold Entresto going forward. Follow-up with primary plisse machine operator for GDMT medication management.
- Patient was not on Jardiance prior to this admission, it was discontinued by his doctor.
Chronic CHF with reduced EF-euvolemic today
- Resume Lasix today
- Cardiology to adjustment of GDMT
-not a candidate for spironolactone or Entresto at the current time
Atrial fibrillation
- Continue apixaban
- Continue amiodarone
- Continue Coreg
Diabetes
- Not on any medication currently. Blood sugars mostly under goal.
Anxiety
-Continue BuSpar
- Continue with Seroquel
[facility]iology -ok for DC from cards standpoint-hold further Entresto.Advised to follow blood pressure with cardiology and retitration of GDMT medications as his blood pressure and creatinine tolerate
DVT prophylaxis�on apixaban
CODE STATUS�full code
Total time of discharge 32 minutes
Anticipated Discharge: Today
Subjective/Interval History
-
Date of Service: October 21, 2024
Denies any further dizziness or lightheadedness.
He feels great and he wants to go home today.
Denies any shortness of breath or chest pain.
No diarrhea or GI symptoms.
Objective Data
-
Labs:
Laboratory Results
10/21/24
07:22
Sodium 142
Potassium 5.0
Chloride 114 H
Carbon Dioxide 19 L
BUN 26 H
Creatinine 1.5 H
Glucose 118 H
Calcium 9.7
Vital Signs:
Vital Signs
Temp Pulse Resp BP Pulse Ox
97.5 F 73 18 154/93 95
10/21/24 10:55 10/21/24 10:55 10/21/24 10:55 10/21/24 10:55 10/21/24 10:55
I&O
10/20/24 10/21/24 10/22/24
06:59 06:59 06:59
Intake Total 840 / 840
Output Total 1000 / 1000
Balance -160 / -160
Physical Exam
-
General: Comfortable
Respiratory: Clear to Auscultation and Non Labored Respirations; Negative Accessory Resp Muscle Use
Cardiac: S1/S2 and Irregular Rhythm; Negative Tachycardic
GI: Soft
Musculoskeletal: No Edema
Neuro: AO x 3
Data Reviewed
-
Labs: Labs Reviewed by me
--- NOTE | 2024-10-21 11:14 | W.DCSUMMARY ---
Discharge Summary
Discharge Data
Date of Admission: 10/20/24
Date of Discharge: 10/21/24
-
Pending Results: No
Hospital Course
Primary diagnosis:
Acute on chronic kidney disease stage III suspected secondary to Entresto initiation
Secondary diagnosis:
Chronic heart failure with reduced EF
Permanent atrial fibrillation
History of diabetes mellitus 2
History of anxiety
Hospital course:
Patient with history of chronic congestive heart failure from cardiomyopathy with EF of 25 to 30% was recently introduced on Entresto and his creatinine jumped to 2.5 from 1.7 so he was referred to the hospital for further evaluation. It turned out
that possible etiology was Entresto initiation. His creatinine came down from 2.5-1.5 which is at his baseline or better. Was seen by cardiology who advised to continue to keep a hold on Entresto. Continue with Coreg for his cardiomyopathy. Not
a candidate for spironolactone with chronic kidney disease. He was on Jardiance which was recently discontinued by primary costume shop coordinator. Advised to follow with primary costume shop coordinator to continue with GDMT medication. He was euvolemic and his Lasix
was reintroduced prior to discharge.
Consultants on board:
Cardiology-Lico Salmeron
Discharge Plan
-
Patient Disposition: Home (Routine Discharge)
Discharge Diagnosis/Procedures: STERLING on CKD suspect sec to Entresto; CM with hx of CHF;Afib on AC
Diet: 2 Gram Sodium and Restrict fluids to 64 oz
Activity: As tolerated
Driving Restrictions: As prior to admission
Bathing Restrictions: None
Specialty Instructions: Weigh Daily- Call MD for wt gain/loss 3 lbs overnight/5 lbs in 1 week
Activity Restrictions/Additional Instructions:
Call your primary costume shop coordinator and make an appointment for 1-2 weeks
Referrals:
UNKNOWN - PT DOES,NOT KNOW [Family Provider] - in less than 1 week
Prescriptions:
New
prazosin 5 mg Capsule
5 mg PO HS Qty: 1 0RF
Rx Instructions:
this is old medication , not new
Eliquis 5 mg Tablet
5 mg PO BID Qty: 1 0RF
Rx Instructions:
This is your old medication. Take it as before.
Continued
carvedilol [Coreg] 6.25 mg Tablet
6.25 mg PO BID
cyanocobalamin (vitamin B-12) 1,000 mcg Tablet
1,000 mcg PO DAILY
buspirone 10 mg Tablet
10 mg PO BID
amiodarone 100 mg Tablet
100 mg PO DAILY
tamsulosin 0.4 mg Capsule
0.4 mg PO DAILY
furosemide [Lasix] 20 mg Tablet
40 mg PO DAILY
quetiapine [Seroquel] 100 mg tablet
100 mg PO HS
Rx Instructions:
150mg total
docusate sodium 100 mg Tablet
100 mg PO DAILYPRN PRN (Reason: constipation)
esomeprazole magnesium [Nexium] 20 mg Capsule,Delayed Release(Dr/Ec)
20 mg PO DAILYPRN PRN (Reason: gerd)
atorvastatin 80 mg Tablet
80 mg PO DAILY
naltrexone 50 mg Tablet
50 mg PO DAILY
Discontinued
clonidine HCl 0.1 mg Tablet
0.1 mg PO BID
Xarelto 20 mg Tablet
20 mg PO HS
prazosin 5 mg Capsule
10 mg PO HS
Jardiance 10 mg Tablet
10 mg PO DAILY
quetiapine 50 mg Tablet
50 mg PO HS
Rx Instructions:
total 150mg
Mucinex DM 30-600 mg Tablet Extended Release 12 Hr
1 tab PO [id number] PRN (Reason: cough)
ondansetron 4 mg tablet,disintegrating
4 mg translingual Q8HPRN PRN (Reason: NAUSEA )
valsartan [Diovan] 80 mg tablet
80 mg PO DAILY Qty: 30 5RF
Discharge Orders:
Discharge Patient (As Directed); Ordered 10/21/24
Ordered By: Gary Gonzalez
Discharge Date and Time
Discharge Date/Time: 10/21/24 11:04
Print Language: ALBANIAN
== END 2024-10-21 11:04 | disposition home or self-care (01) | DRG 683 ==
LOC: 3 WEST ACU 03:33
PROVIDERS: Emergency Medicine; ADMITTING PHYSICIAN Internal Medicine; ATTENDING PHYSICIAN Internal Medicine; EMERGENCY PHYSICIAN Emergency Medicine; OTHER PHYSICIAN Internal Medicine
DX: N17.9 Acute kidney failure, unspecified (principal); I13.0 Hypertensive heart and chronic kidney disease with heart failure and stage 1 through stage 4 chronic kidney disease, or unspecified chronic kidney disease; I48.21 Permanent atrial fibrillation; I50.22 Chronic systolic (congestive) heart failure; F17.200 Nicotine dependence, unspecified, uncomplicated; N18.32 Chronic kidney disease, stage 3b; E86.1 Hypovolemia; Z79.01 Long term (current) use of anticoagulants; F41.9 Anxiety disorder, unspecified; I95.1 Orthostatic hypotension; I48.0 Paroxysmal atrial fibrillation; D64.9 Anemia, unspecified; E11.22 Type 2 diabetes mellitus with diabetic chronic kidney disease; Z79.899 Other long term (current) drug therapy
CPT/HCPCS: 80048; 80053; 81003; 81015; 82962; 83735; 85025; 87086; 93005; 96360; 96361; 99285